=== PATIENT | female | born 1960 | race Caucasian/White ===

== ENCOUNTER 2020-07-30 07:39 | Outpatient (REF) | payer BC, SELFPAY ==
[2020-07-30 08:20] LABS: Basophils Percent Auto 0.2 % (0-2); Eosinophils Absolute Auto 0.2 X10*3/uL (0.0-0.4); Eosinophils Percent Auto 2.6 % (0-4); Imm Gran Abs Auto 0.02 X10*3/uL (0.00-0.03); Imm Gran Pct Auto 0.3 % (0.0-0.4); MANUAL DIFF FLAG SCAN; PLT CLUMP 1; SCAN SMEAR FLAG 1
[2020-07-30 08:21] LABS: Appearance Urine CLEAR; Color Urine YELLOW; Glucose Urine UA NEG (NEG); Leukocyte Esterase Urine 1+ (NEG); Nitrite Urine NEG (NEG); Specific Gravity - Urine 1.025 (1.005-1.025); Urine Blood 2+ (NEG); Urine Ketones NEG (NEG); Urine Protein NEG (NEG-TRACE)
[2020-07-30 08:22] LABS: Hematocrit 34.8 % (37-47); Hemoglobin 11.9 g/dl (12.0-16.0); Lymphocytes Absolute Auto 1.7 X10*3/uL (1.2-4.9); Lymphocytes Percent Auto 25.8 % (20-40); Mean Corpuscular HGB Conc 34.2 g/dl (31.0-35.0); Mean Corpuscular Volume 93.5 fL (80-98); Mean Platelet Volume 9.8 fL (9.4-12.3); Monocytes Absolute Auto 0.4 X10*3/uL (0.1-1.2); Monocytes Percent Auto 6.7 % (2-11); Neutrophils Absolute Auto 4.2 X10*3/uL (2.0-8.3); Neutrophils Percent Auto 64.4 % (45-73); Platelet Count 155 X10*3/uL (160-400); Red Blood Count 3.72 X10*6/uL (4.20-5.50); Red Cell Distribution Width 13.4 % (11.0-16.0); White Blood Count 6.4 X10*3/uL (4.8-10.8)
[2020-07-30 08:31] LABS: Mucus Urine TRACE /LPF; Squamous Epithelial Cell Urine 2+ /LPF
[2020-07-30 08:32] LABS: WBC Urine 0-2 /HPF (0-4)
[2020-07-30 09:34] LABS: Alanine Aminotransferase 21 U/L (0-31); Albumin Level 4.3 g/dL (3.5-5.0); Alkaline Phosphatase 80 U/L (39-117); Anion Gap 11 (12-20); Aspartate Amino Transferase 22 U/L (5-31); Bilirubin Total 0.6 mg/dL (0.0-1.0); Blood Urea Nitrogen 20 mg/dL (9-16); Calcium 8.7 mg/dL (8.4-10.2); Carbon Dioxide 26 mmol/L (22-29); Chloride 108 mmol/L (96-108); Cholesterol 210 mg/dL; Estimated Glomerular Filt Rate > 60; Glucose Random 100 mg/dL (60-115); HDL Cholesterol 68 mg/dL; LDL Cholesterol Calculated 133 mg/dl; Potassium 4.1 mmol/l (3.3-5.1); Sodium 141 mmol/L (135-145); Total Protein 6.9 g/dL (6.5-8.0); Triglycerides 47 mg/dL
[2020-07-30 09:58] LABS: Free T4 (Free Thyroxine) 0.87 ng/dL (0.71-1.85); Thyroid Stimulating Hormone 2.94 uIU/mL (0.32-4.0); Vitamin D 25-OH Total 25.3 ng/mL (>30)
[2020-07-30 10:45] LABS: Folate 19.4 ng/mL (> or = 4.0); Vitamin B12 503 pg/mL (200-900)
== END 2020-07-30 07:40 | disposition home or self-care (01) ==
LOC: HO.LAB 07:39
PROVIDERS: Visit Provider Internal Medicine
DX: E78.00 Pure hypercholesterolemia, unspecified (principal); I73.9 Peripheral vascular disease, unspecified
CPT/HCPCS: 36415; 80053; 80061; 81001; 82306; 82607; 82746; 84439; 84443; 85025

== ENCOUNTER 2020-07-30 11:50 | Outpatient (REF) | payer BC, SELFPAY ==
--- NOTE | 2020-07-30 11:58 | US_ITS ---
EXAMINATION: US VENOUS ULTRASOUND WITH DOPPLER LOWER EXTREMITY, LEFT CLINICAL INFORMATION: Reason for Exam R09.89 - Other specified symptoms and signs involving the ci COMPARISON: Prior right venous ultrasound May 2018 TECHNIQUE: Ultrasound of the deep veins is performed from the hip to the calf with compression sonography and color and pulse Doppler assessment. Spectral analysis with color-flow imaging is performed. FINDINGS: There is normal venous compression and respiratory variation and augmented flow. The visualized common femoral vein, superficial femoral vein, profunda femoral vein, popliteal vein, and the trifurcation region shows no evidence of deep venous thrombosis. There is no significant popliteal fossa cyst. If the patient's symptoms persist, followup ultrasound in 5 days 7 days might be of value to exclude proximal propagation from a non-visualized calf vein. US/US venous duplex LE IMPRESSION: No DVT demonstrated in the left lower extremity.
== END 2020-07-30 11:51 | disposition home or self-care (01) ==
LOC: HO.HMGCX 11:50
PROVIDERS: PCP Internal Medicine; Visit Provider Internal Medicine
DX: R09.89 Other specified symptoms and signs involving the circulatory and respiratory systems (principal)
CPT/HCPCS: 93971

== ENCOUNTER 2021-11-25 10:07 | Outpatient (REF) | payer BC, SELFPAY ==
[2021-11-25 10:24] LABS: MANUAL DIFF FLAG NO
[2021-11-25 10:31] LABS: Basophils Percent Auto 0.3 % (0-2); Eosinophils Absolute Auto 0.1 X10*3/uL (0.0-0.4); Eosinophils Percent Auto 1.5 % (0-4); Hematocrit 34.8 % (37.0-47.0); Hemoglobin 11.7 g/dl (12.0-16.0); Imm Gran Abs Auto 0.02 X10*3/uL (0.00-0.03); Imm Gran Pct Auto 0.3 % (0.0-0.4); Lymphocytes Absolute Auto 1.5 X10*3/uL (1.2-4.9); Lymphocytes Percent Auto 22.4 % (20-40); Mean Corpuscular HGB Conc 33.6 g/dl (31.0-35.0); Mean Corpuscular Volume 92.3 fL (80.0-98.0); Mean Platelet Volume 9.2 fL (9.4-12.3); Monocytes Absolute Auto 0.4 X10*3/uL (0.1-1.2); Monocytes Percent Auto 5.7 % (2-11); Neutrophils Absolute Auto 4.8 x10*3/uL (2.0-8.3); Neutrophils Percent Auto 69.8 % (45-73); Platelet Count 146 X10*3/uL (160-400); Red Blood Count 3.77 X10*6/uL (4.20-5.50); Red Cell Distribution Width 13.7 % (11.0-16.0); Reticulocytes Absolute 0.074 X10*6/uL (0.026-0.095); White Blood Count 6.9 X10*3/uL (4.8-10.8)
[2021-11-25 11:18] LABS: Alanine Aminotransferase 17 U/L (0-31); Albumin Level 4.2 g/dL (3.5-5.0); Alkaline Phosphatase 80 U/L (39-117); Anion Gap 10 (12-20); Aspartate Amino Transferase 25 U/L (5-31); Bilirubin Total 1.4 mg/dL (0.0-1.0); Blood Urea Nitrogen 13 mg/dL (9-16); Calcium 9.3 mg/dL (8.4-10.2); Carbon Dioxide 29 mmol/L (22-29); Chloride 105 mmol/L (96-108); Cholesterol 199 mg/dL; Estimated Glomerular Filt Rate > 60; Glucose Random 98 mg/dL (60-115); HDL Cholesterol 54 mg/dL; Iron 46 mcg/dL (30-160); LDL Cholesterol Calculated 130 mg/dl; Percent Iron Saturation 16 % (15-50); Potassium 4.4 mmol/L (3.3-5.1); Sodium 140 mmol/L (135-145); Total Iron Binding Capacity 290 mcg/dL (228-428); Total Protein 6.9 g/dL (6.5-8.0); Triglycerides 76 mg/dL; Unsaturated Iron Binding 244 ug/dL
[2021-11-25 11:39] LABS: Ferritin 463 ng/mL (10-250); Free T4 (Free Thyroxine) 0.94 ng/dL (0.71-1.85); Thyroid Stimulating Hormone 2.02 uIU/mL (0.32-4.0); Vitamin D 25-OH Total 22.3 ng/mL (>30)
[2021-11-25 11:58] LABS: Folate 17.4 ng/mL (> or = 4.0); Vitamin B12 472 pg/mL (200-900)
[2021-11-25 12:06] LABS: Appearance Urine CLEAR; Color Urine YELLOW; Glucose Urine UA NEG (NEG); Leukocyte Esterase Urine NEG (NEG); Nitrite Urine NEG (NEG); PH 5.5 (5.0-8.0); Urine Blood 1+ (NEG); Urine Ketones NEG (NEG); Urine Protein NEG (NEG-TRACE)
[2021-11-25 12:30] LABS: RBC Urine 0-2 /HPF (0); WBC Urine 0 /HPF (0-4)
[2021-11-25 12:31] LABS: Mucus Urine 1+ /LPF; Squamous Epithelial Cell Urine TRACE /LPF
== END 2021-11-25 10:08 | disposition home or self-care (01) ==
LOC: HO.LAB 10:07
PROVIDERS: PCP Internal Medicine; Visit Provider Internal Medicine
DX: I73.9 Peripheral vascular disease, unspecified (principal); E78.00 Pure hypercholesterolemia, unspecified; D64.9 Anemia, unspecified
CPT/HCPCS: 36415; 80053; 80061; 81001; 82306; 82607; 82728; 82746; 83540; 84439; 84443; 85025; 85045

== ENCOUNTER → 2021-12-14 15:31 | Outpatient (BNV) | payer BC, MEDICARE, SELFPAY | PROVIDERS: PCP Internal Medicine; Visit Provider Internal Medicine | DX: D64.9 Anemia, unspecified (principal); D69.6 Thrombocytopenia, unspecified | CPT/HCPCS: 99203; 99213; 99214 ==

== ENCOUNTER → 2022-01-28 07:23 | Outpatient (REF) | payer BC, SELFPAY ==
--- NOTE | ~2022-01-28 | XR_ITS ---
EXAMINATION: XR CHEST CLINICAL INFORMATION: Shortness of breath COMPARISON: None TECHNIQUE: 2 views of the chest were obtained. FINDINGS: The cardiac and mediastinal contours are normal. The lungs are clear. There is no pleural effusion or pneumothorax. There are degenerative changes of the spine. XR/XR chest 2V IMPRESSION: No evidence for acute disease in the chest.
--- NOTE | ~2022-01-28 | XR_ITS ---
EXAMINATION: XR ABDOMEN KUB CLINICAL INDICATION: Family history of abdominal aortic aneurysm. COMPARISON: None TECHNIQUE: AP view of the abdomen. FINDINGS: The bowel gas pattern is normal with no evidence of ileus or obstruction. No unusual soft tissue calcifications are noted. There is a small left pelvic calcification probably representing a calcified phlebolith. There are mild degenerative changes of the lower lumbar spine and hip joints. XR/XR KUB IMPRESSION: No evidence of abdominal aortic aneurysm by x-ray.
--- NOTE | 2022-01-28 07:30 | ECG_ITS ---
Test Reason : sob Blood Pressure : / mmHG Vent. Rate : 067 BPM Atrial Rate : 067 BPM P-R Int : 142 ms QRS Dur : 080 ms QT Int : 398 ms P-R-T Axes : 036 -18 040 degrees QTc Int : 420 ms Normal sinus rhythm with sinus arrhythmia Normal ECG No previous ECGs available Referred By: Royal Mendoza Electronically Signed By:PARK PATTERSON MD
== END ==
LOC: HO.CARD 07:23
PROVIDERS: PCP Internal Medicine; Visit Provider Internal Medicine
DX: R06.02 Shortness of breath (principal)
CPT/HCPCS: 71046; 74018; 93005

== ENCOUNTER → 2022-01-31 08:53 | Outpatient (REF) | payer BC, SELFPAY ==
--- NOTE | 2022-01-31 09:03 | CA_ITS ---
Acquisition Time: 2022-01-31 09:18:10 Total Exercise Time: 00:08:33 Test Indications: SOB Medications: Protocol: IGNACIO Max HR: 139 BPM 89% of Pred: 156 BPM Max BP: 168/066 mmHG Max Work Load: 10.1 METS Exercise stress test with exercise 8 min 33 sec of Ignacio protocol, achieving 87% MPHR, 10.1 METs, with mild sob, no chest discomfort, without arrythmia, with normotensive response to exercise, without EKG changes meeting criteria for ischemia. Test reviewed with Dr Fields. Referred By: Royal Mendoza Overread By: JEREMIAH PETTY
== END ==
LOC: HO.CARD 08:53
PROVIDERS: PCP Internal Medicine; Visit Provider Internal Medicine
DX: R06.02 Shortness of breath (principal)
CPT/HCPCS: 93017

== ENCOUNTER 2022-02-03 07:34 | Outpatient (REF) | payer BC, SELFPAY ==
--- NOTE | ~2022-02-03 | MM_ITS ---
EXAMINATION: MM SCREENING DIGITAL BREAST TOMOSYNTHESIS, BILATERAL CLINICAL INFORMATION: Screening. Asymptomatic. The lifetime risk of breast cancer based on the Tyrer-Cuzick Model is 9%. COMPARISON: Outside mammography: 02/17/2021, 10/08/2019, 08/30/2018 ([facility]). TECHNIQUE: Digital breast tomosynthesis is performed in both the craniocaudal and mediolateral oblique views along with computer-aided detection (CAD). Synthesized 2D images are generated from the tomosynthesis. FINDINGS: There are scattered areas of fibroglandular density (ACR BI-RADS breast composition Category b). Parenchymal pattern is similar to prior outside exams. Right breast has a stable oval nodule versus intramammary node posterior outer breast. Neither breast shows significant mass or architectural abnormality or abnormal calcifications. There are dermal lesions overlying the bilateral upper breasts and left posterior 6:00 position. The axilla are unremarkable. No significant changes. MM/MM tomosynthesis screening BI IMPRESSION: No mammographic evidence of malignancy. ASSESSMENT: BI-RADS 2: Benign RECOMMENDATION: Routine annual mammography screening. This patient's information was entered into a reminder system with a target due date for their next mammogram.
--- NOTE | ~2022-02-03 | MM_ITS ---
EXAMINATION: BONE DENSITOMETRY CLINICAL INDICATION: Osteoporosis. COMPARISON: Baseline BD dated 09/14/2017. TECHNIQUE: Using a [employer] DXA System (software version: 13.1) manufactured by [employer], dual-energy x-ray absorptiometry was performed of the lumbar spine and left hip. The images are of good technical quality. Summary results are attached. FINDINGS: AP SPINE L1-L4: Current: BMD 0.943 g/cm2, Z-score -1.2, T-score -2.0, osteopenia, 1.5% decrease from baseline (<5% change is not significant). Baseline: BMD 0.957 g/cm2. LEFT FEMUR, NECK: Current: BMD 0.846 g/cm2, Z-score -0.4, T-score -1.4, osteopenia. Baseline: BMD 0.883 g/cm2. LEFT FEMUR, TOTAL: Current: BMD 0.945 g/cm2, Z-score 0.1, T-score -0.5, normal, 0.2% decrease from baseline (<5% change is not significant). Baseline: BMD 0.947 g/cm2. IDENTIFIED RISK FACTORS: Menopause, history of fracture (adult). HISTORY OF FRACTURE: Wrist, finger, lower leg. MEDICATIONS: Calcium or multivitamin. Vitamin D. MM/XR DEXA axial skeleton IMPRESSION: 1. DIAGNOSIS: Osteopenia based on the lowest T-score value of -2.0 in the lumbar spine applying World Health Organization criteria. 2. 10-YEAR FRACTURE RISK PREDICTION, FRAX: Major osteoporotic fracture (clinical spine, forearm, hip or shoulder) 13.7%. Hip fracture 1.3%. 3. Treatment Recommendations: NOF guidelines recommend consideration for treatment in postmenopausal women and men age 50 and older presenting with the following: -A hip or vertebral (clinical or morphometric) fracture. -T-score less than or equal to -2.5 at the femoral neck or spine after appropriate evaluation to exclude secondary causes. -Low bone mass at the hip or spine and a 10-year fracture probability by FRAX of greater than or equal to 3% for hip fracture or greater than or equal to 20% for major osteoporotic fracture based on the [place] adapted WHO algorithm. 4. Other Recommendations: All treatment decisions require clinical judgment and consideration of individual patient factors, including patient preferences, comorbidities, previous drug use, risk factors not captured in the FRAX model (e.g. frailty, falls, vitamin D deficiency, increased bone turnover, interval significant decline in bone density) and possible under or overestimation of fracture risk by FRAX. Additional medical evaluation for secondary cause of low bone mineral density may be appropriate. FUTURE SCAN RECOMMENDATION: People with diagnosed cases of osteoporosis or at high risk for fracture should have regular bone mineral density tests. For patients eligible for Medicare, routine testing is allowed once every 2 years. The testing frequency can be increased to one year for patients who have rapidly progressing disease, those who are receiving or discontinuing medical therapy to restore bone mass, or have additional risk factors.
== END 2022-02-03 07:35 | disposition home or self-care (01) ==
LOC: HO.MAMMO 07:34
PROVIDERS: Visit Provider Internal Medicine
DX: Z12.31 Encounter for screening mammogram for malignant neoplasm of breast (principal); Z13.820 Encounter for screening for osteoporosis; M81.0 Age-related osteoporosis without current pathological fracture; Z78.0 Asymptomatic menopausal state
CPT/HCPCS: 77063; 77067; 77080

== ENCOUNTER 2022-05-03 13:09 | Outpatient (REF) | payer BC, SELFPAY ==
--- NOTE | ~2022-05-03 | US_ITS ---
EXAMINATION: US PELVIS CLINICAL INFORMATION: Pelvic and perineal pain COMPARISON: None TECHNIQUE: Ultrasound of the pelvis is performed using both transabdominal and transvaginal transducers along with Doppler. Transvaginal imaging is performed due to inadequate visualization transabdominally. FINDINGS: Uterus: The uterus is anteverted and measures 5.7 x 2.1 x 3.6 cm. There is a submucosal fibroid present on the right fundus measuring 2.1 x 1.9 x 1.9 cm The double wall endometrial thickness is 2.4 mm. Tiny amount of fluid is present in the endometrial canal Adnexa: The right ovary could not be seen. Left ovary measured 2.6 x 2.1 x 1.7 cm for a volume of 4.9 mL which included a 1.8 x 1.4 x 1.5 cm cyst. No free fluid was present in the cul-de-sac. US/US pelvic ovarian doppler IMPRESSION: Submucosal right-sided fundal fibroid. Small amount of fluid is present in the endometrial canal. Nonvisualization of the right ovary. Benign left ovarian cyst needs no further follow-up.
--- NOTE | ~2022-05-03 | US_ITS ---
EXAMINATION: US PELVIS CLINICAL INFORMATION: Pelvic and perineal pain COMPARISON: None TECHNIQUE: Ultrasound of the pelvis is performed using both transabdominal and transvaginal transducers along with Doppler. Transvaginal imaging is performed due to inadequate visualization transabdominally. FINDINGS: Uterus: The uterus is anteverted and measures 5.7 x 2.1 x 3.6 cm. There is a submucosal fibroid present on the right fundus measuring 2.1 x 1.9 x 1.9 cm The double wall endometrial thickness is 2.4 mm. Tiny amount of fluid is present in the endometrial canal Adnexa: The right ovary could not be seen. Left ovary measured 2.6 x 2.1 x 1.7 cm for a volume of 4.9 mL which included a 1.8 x 1.4 x 1.5 cm cyst. No free fluid was present in the cul-de-sac. US/US pelvic and transvaginal IMPRESSION: Submucosal right-sided fundal fibroid. Small amount of fluid is present in the endometrial canal. Nonvisualization of the right ovary. Benign left ovarian cyst needs no further follow-up.
== END 2022-05-03 13:10 | disposition home or self-care (01) ==
LOC: HO.US 13:09
PROVIDERS: PCP Internal Medicine; Visit Provider Physician Assistant
DX: R10.2 Pelvic and perineal pain (principal)
CPT/HCPCS: 76830; 76856; 93975

== ENCOUNTER 2023-03-11 08:52 | Outpatient (REF) | payer MEDICARE, BC, SELFPAY ==
--- NOTE | ~2023-03-11 | MM_ITS ---
EXAMINATION: MM SCREENING DIGITAL BREAST TOMOSYNTHESIS, BILATERAL CLINICAL INFORMATION: Screening. Asymptomatic. The lifetime risk of breast cancer based on the Tyrer-Cuzick Model is 8%. COMPARISON: Mammography: 12/04/2021; outside mammography 02/17/2021, 10/08/2019, 08/30/2018 ([facility]). TECHNIQUE: Digital breast tomosynthesis is performed in both the craniocaudal and mediolateral oblique views along with computer-aided detection (CAD). Synthesized 2D images are generated from the tomosynthesis. FINDINGS: There are scattered areas of fibroglandular density (ACR BI-RADS breast composition Category b). There are no significant masses, abnormal calcifications, or other abnormalities. Parenchymal pattern is similar to prior studies. There is no developing density or architectural abnormality. There are scattered dermal lesions again noted. Incidental small intramammary nodes again present posterior upper outer right breast. The axilla are unremarkable. No significant changes from prior studies. MM/MM tomosynthesis screening BI IMPRESSION: No mammographic evidence of malignancy. ASSESSMENT: BI-RADS 2: Benign RECOMMENDATION: Routine annual mammography screening. This patient's information was entered into a reminder system with a target due date for their next mammogram.
== END 2023-03-11 08:53 | disposition home or self-care (01) ==
LOC: HO.MAMMO 08:52
PROVIDERS: PCP Internal Medicine; Visit Provider Internal Medicine
DX: Z12.31 Encounter for screening mammogram for malignant neoplasm of breast (principal)
CPT/HCPCS: 77063; 77067

== ENCOUNTER 2023-08-07 10:30 | Outpatient (REF) | payer MEDICARE, BC, SELFPAY ==
[2023-08-07 10:43] LABS: MANUAL DIFF FLAG NO
[2023-08-07 10:58] LABS: Basophils Percent Auto 0.3 % (0-2); Eosinophils Absolute Auto 0.1 X10*3/uL (0.0-0.4); Eosinophils Percent Auto 1.8 % (0-4); Hematocrit 33.7 % (37.0-47.0); Hemoglobin 11.5 g/dl (12.0-16.0); Imm Gran Abs Auto 0.02 X10*3/uL (0.00-0.03); Imm Gran Pct Auto 0.3 % (0.0-0.4); Immature Retic Fraction 11.6 % (3.0-15.9); Lymphocytes Absolute Auto 1.6 X10*3/uL (1.2-4.9); Lymphocytes Percent Auto 20.9 % (20-40); Mean Corpuscular HGB Conc 34.1 g/dl (31.0-35.0); Mean Corpuscular Hemoglobin 31.7 pg (27.0-33.0); Mean Corpuscular Volume 92.8 fL (80.0-98.0); Mean Platelet Volume 9.8 fL (9.4-12.3); Monocytes Absolute Auto 0.5 X10*3/uL (0.1-1.2); Monocytes Percent Auto 7.1 % (2-11); Neutrophils Absolute Auto 5.3 x10*3/uL (2.0-8.3); Neutrophils Percent Auto 69.6 % (45-73); Platelet Count 140 X10*3/uL (160-400); Red Blood Count 3.63 X10*6/uL (4.20-5.50); Red Cell Distribution Width 13.4 % (11.0-16.0); Retic HGB Equivalent 35.8 pg (30.0-35.0); Reticulocyte Percent 2.2 % (0.5-1.8); Reticulocytes Absolute 0.081 X10*6/uL (0.026-0.095); White Blood Count 7.6 X10*3/uL (4.8-10.8)
[2023-08-07 11:06] LABS: Estimated Average Glucose 94 mg/dL; Hemoglobin A1c % 4.9 % (<6.0)
[2023-08-07 11:38] LABS: Alanine Aminotransferase 11 U/L (0-31); Albumin Level 4.1 g/dL (3.5-5.0); Alkaline Phosphatase 73 U/L (39-117); Anion Gap 10 (12-20); Aspartate Amino Transferase 19 U/L (5-31); Blood Urea Nitrogen 15 mg/dL (9-16); Calcium 9.3 mg/dL (8.4-10.2); Carbon Dioxide 28 mmol/L (22-29); Chloride 107 mmol/L (96-108); Cholesterol 190 mg/dL (<200); Estimated Glomerular Filt Rate > 60; Glucose Random 97 mg/dL (60-115); HDL Cholesterol 64 mg/dL (>40); Iron 47 mcg/dL (30-160); LDL Cholesterol Calculated 115 mg/dL (<100); Percent Iron Saturation 21 % (15-50); Potassium 4.1 mmol/L (3.3-5.1); Sodium 141 mmol/L (135-145); Total Iron Binding Capacity 223 mcg/dL (228-428); Total Protein 6.9 g/dL (6.5-8.0); Triglycerides 55 mg/dL (<150); Unsaturated Iron Binding 176 ug/dL
[2023-08-07 11:58] LABS: Ferritin 475 ng/mL (10-250); Free T4 (Free Thyroxine) 0.92 ng/dL (0.71-1.85); Thyroid Stimulating Hormone 1.51 uIU/mL (0.32-4.0); Vitamin D 25-OH Total 27.3 ng/mL (>30)
[2023-08-07 12:01] LABS: Folate 12.2 ng/mL (> or = 4.0); Vitamin B12 410 pg/mL (200-900)
== END 2023-08-07 10:31 | disposition home or self-care (01) ==
LOC: HO.LAB 10:30
PROVIDERS: PCP Internal Medicine; Visit Provider Internal Medicine
DX: D64.9 Anemia, unspecified (principal); E78.00 Pure hypercholesterolemia, unspecified; R73.02 Impaired glucose tolerance (oral); E55.9 Vitamin D deficiency, unspecified
CPT/HCPCS: 36415; 80053; 80061; 82306; 82607; 82728; 82746; 83036; 83540; 84439; 84443; 85025; 85045

== ENCOUNTER 2023-08-07 15:13 | Outpatient (AMB) | payer MEDICARE, BC, SELFPAY ==
[2023-08-07 15:14] VITALS: BP 126/90; PULSE 65; O2SAT 96; BMI 27.9
--- NOTE | 2023-08-07 15:14 | A.OFFPC_ITS ---
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 Allergy (Unknown, Uncoded 08/07/23 15:19) NKDA Tobacco use date assessed: 08/07/23 Fall risk assessment: No Falls in past year Last assessed Fall Risk: 08/07/23 Dental Screening Did you have a dental visit in the last 12 months?: Yes Did you have a dental problem in the last 6 months where you did not have access to dental care?: No Was dental information given to patient?: Patient has dentist [facility] Medical History (Updated 08/07/23 @ 15:41 by Royal Mendoza MD) Cough SOB (shortness of breath) on exertion Obesity (BMI 30-39.9) Right arm fracture Melanoma of lip Osteopenia Tubular adenoma of colon Peripheral vascular disease Surgical History History of hemorrhoidectomy Fracture of phalanx of right ring finger History of surgery on right wrist Ovarian tumor Right fibular fracture Family History (Updated 12/19/22 @ 09:12 by Royal Mendoza MD) Father FH: prostate cancer Skin cancer Colon cancer Atrial fibrillation Mother Social History (Updated 12/19/22 @ 09:13 by Royal Mendoza MD) Household Members: Significant Other Housing: House Are you a primary hospice patient care secretary to a significant other at home: No Do you presently have visiting nurse or other home services: No Alcohol intake: current Alcohol intake frequency: holidays/special occasions only Patient Tobacco Use Status: Never used Tobacco Years Smoked: second hand smoke 14 years old did smoke 3 months e-Cigarette/Vaping Use: Never Used Second Hand Smoke Exposure: No service: No Current occupational status: employed and retired Cognitive needs: No Hearing needs: No Vision needs: Yes (Glasses) Questionnaire Thrive Questionnaire Date Thrive assessed: 12/19/22 AUDIT C Alcohol Use Questionnaire (AUDIT-C) 1. How often do you have a drink containing alcohol?: Monthly or less 2. How many drinks containing alcohol do you have on a typical day when you are drinking?: 1 or 2 3. How often do you have six or more drinks on one occasion?: Never Total Score: 1 JEFFREY-7 AMB Questionnaire JEFFREY-7 Date JEFFREY - 7 assessed: 12/19/22 Source: Developed by Drs. Mitchell Zapata, Tejal Moreno, Agapito Umanzor and colleagues, with an educational ailyn from [employer]. Physical exam (Primary Care) Vital Signs: Last Vital Signs Pulse 65 08/07/23 15:14 BP 126/90 H 08/07/23 15:14 Pulse Ox 96 08/07/23 15:14 Oxygen Delivery Method Room Air 08/07/23 15:14 BMI result Body Mass Index 27.9 Tobacco/Smoking Status: Tobacco use Status Tobacco use date assessed 08/07/23 08/07/23 15:15 Patient Tobacco Use Status Never used Tobacco 08/07/23 15:15 e-Cigarette/Vaping Use Never Used 08/07/23 15:15 Thrive Assessment: Date of Thrive Assessment Date Thrive assessed 12/19/22 08/07/23 15:15 Const General: alert; No acute distress Eyes Conjunctivae: conjunctivae normal Resp Auscultation: clear to auscultation bilaterally Cardio Rate: regular rate Rhythm: regular rhythm GI Inspection: Yes normal to inspection Extrem Other: Right arm feeling of cord in the middle but no discoloration of the skin very mild tenderness complains of numbness of the hands but getting better Office Procedures Flu Questionnaire Does the patient have a severe egg allergy?: No Does the patient have severe life threatening allergies?: No Does the patient have a fever or illness today?: No Has the patient ever had Guillain-[place] Syndrome?: No Has the patient ever had any past reaction to a flu shot?: No Immunizations flu vacc [id number] 6mos up(PF) 60 mcg(15 mcgx4)/0.5 mL IM syringe Performing Provider: Royal Mendoza MD [facility] [place] [facility] Administered by: BELKYS Galeas on 08/07/23 16:10 Dose Route Admin Location Dispensed Lot Number Expiration Date NDC [facility] Nurse Practitioner 0.5 mL IM Left Deltoid 0.5 mL [id number] 03/17/24 20730-288-32 [employer] VIS Given Date VIS Provided VIS Publication Date 08/07/23 Single Vaccine 21 Eligibility Eligibility Date Funding Source Not [facility] Eligible 08/07/23 Private Assessment and Plan Assessment & Plan (1) Anemia: Code(s): D64.9 - Anemia, unspecified Plan: Continuing to monitor normal iron and vitamin B12 (2) Vitamin D deficiency: Code(s): E55.9 - Vitamin D deficiency, unspecified Plan: Vitamin-D 7706-2901 units once a day (3) Obesity (BMI 30-39.9): Code(s): E66.9 - Obesity, unspecified Plan: Diet and exercise (4) Right arm pain: Code(s): M79.601 - Pain in right arm Plan: Us done negative in [facility] negative- R arm cord (5) Numbness of right hand: Code(s): R20.0 - Anesthesia of skin Plan: if persist will have NCV Orders: Orders XR humerus RT Today R20.0 - Anesthesia of skin Influenza [id number] Immunization Today Z23 - Encounter for immunization Coding Level of Care Code Est Pt Level 4 (35967) Diagnoses Anemia D64.9 Vitamin D deficiency E55.9 Obesity (BMI 30-39.9) E66.9 Right arm pain M79.601 Numbness of right hand R20.0
== END 2023-08-07 16:01 | disposition home or self-care (01) ==
PROVIDERS: PCP Internal Medicine; Visit Provider Internal Medicine
DX: D64.9 Anemia, unspecified (principal); E66.9 Obesity, unspecified; Z68.27 Body mass index [BMI] 27.0-27.9, adult; Z23 Encounter for immunization; E55.9 Vitamin D deficiency, unspecified; M79.601 Pain in right arm; R20.0 Anesthesia of skin
CPT/HCPCS: 90471; 90686; 99214

== ENCOUNTER 2023-08-24 13:09 | Outpatient (AMB) | payer MEDICARE, BC, SELFPAY ==
[2023-08-24 13:10] VITALS: BP 124/72; PULSE 62; O2SAT 98; BMI 28.8
--- NOTE | 2023-08-24 13:10 | A.OFFPC_ITS ---
Vital Signs 3 08/24/23 13:10 Height 5 ft 7 in Weight 184 lb BMI 28.8 BP 124/72 Blood Pressure Location Lt brachial Position Sitting Pulse 62 Pulse Source Pulse Oximeter Pulse Oximetry (%) 98 Oxygen Delivery Method Room Air Intake Visit Reasons: Fell off her horse, back/hip pain Intake Note: pt states back and left hip pain due to falling off horse 08/14/23. 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 Allergy (Unknown, Uncoded 08/24/23 13:21) NKDA Medication List - Last Reconciled 08/24/23 by CRISTOPHER Lombardi cholecalciferol (vitamin D3) 25 mcg PO DAILY compress.stocking,knee,reg,med As directed multivitamin 1 tab PO DAILY Tobacco use date assessed: 08/24/23 Last assessed Fall Risk: 08/24/23 HPI Fell off her horse, back/hip pain 2 HPI0 Details Patient is a 63-year-old female who presents today for the same day visit after falling of a horse 08/14/2023. Patient of Dr. Mendoza. Patient reports that she fell on her left hip and landed on a spur. Reports left hip/left low back pain, reports that pain slightly got worse yesterday. Reports that she feels pain deep. Pain is worse with stairs or activity. Pain better with sitting down. Took advil with improvement in pain. No numbness or tingling. Reports left hip lateral pain. Pain when sitting down 1/10 scale, pain with walking 4/10 scale. No shortness of breath or chest pain. Reports left hip bruise. [facility], [facility] Medical History Cough SOB (shortness of breath) on exertion Obesity (BMI 30-39.9) Right arm fracture Melanoma of lip Osteopenia Tubular adenoma of colon Peripheral vascular disease Surgical History History of hemorrhoidectomy Fracture of phalanx of right ring finger History of surgery on right wrist Ovarian tumor Right fibular fracture Family History Father FH: prostate cancer Skin cancer Colon cancer Atrial fibrillation Mother Social History Household Members: Significant Other Housing: House Are you a primary prompt care rn to a significant other at home: No Do you presently have visiting nurse or other home services: No Alcohol intake: current Alcohol intake frequency: holidays/special occasions only Patient Tobacco Use Status: Never used Tobacco Years Smoked: second hand smoke 14 years old did smoke 3 months e-Cigarette/Vaping Use: Never Used Second Hand Smoke Exposure: No service: No Current occupational status: employed and retired Cognitive needs: No Hearing needs: No Vision needs: Yes (Glasses) Questionnaire Thrive Questionnaire Date Thrive assessed: 12/19/22 AUDIT C Alcohol Use Questionnaire (AUDIT-C) 1. How often do you have a drink containing alcohol?: Monthly or less 2. How many drinks containing alcohol do you have on a typical day when you are drinking?: 1 or 2 3. How often do you have six or more drinks on one occasion?: Never Total Score: 1 Score Reviewed/Action Taken: No JEFFREY-7 AMB Questionnaire JEFFREY-7 Date JEFFREY - 7 assessed: 12/19/22 Source: Developed by Drs. Mitchell Zapata, Tejal Moreno, Agapito Umanzor and colleagues, with an educational ailyn from [employer]. Review of Systems Const Denies body aches, Denies chills, Denies fever(s) and Denies headache(s) Eyes Denies change in vision ENT Denies dizziness, Denies otalgia, Denies headache(s), Denies nasal discharge, Denies sinus pain and Denies sore throat Card Denies chest pain, Denies edema, Denies lightheadedness and Denies dyspnea Resp Denies cough, Denies dyspnea and Denies wheezing GI Denies abdominal pain, Denies constipation, Denies diarrhea, Denies nausea and Denies vomiting Denies dysuria Musc Reports as per HPI, Reports back pain, Denies myalgias, Reports arthralgias, Denies joint swelling, Denies numbness and Denies tingling Skin/Breast Reports as per HPI and Denies rash Neuro Denies dizziness, Denies headache(s), Denies numbness and Denies tingling Aller/Immun Denies wheezing Physical exam (Primary Care) Vital Signs: Last Vital Signs Pulse 62 08/24/23 13:10 BP 124/72 08/24/23 13:10 Pulse Ox 98 08/24/23 13:10 Oxygen Delivery Method Room Air 08/24/23 13:10 BMI result Body Mass Index 28.8 Tobacco/Smoking Status: Tobacco use Status Tobacco use date assessed 08/24/23 08/24/23 13:15 Patient Tobacco Use Status Never used Tobacco 08/24/23 13:15 e-Cigarette/Vaping Use Never Used 08/24/23 13:15 Thrive Assessment: Date of Thrive Assessment Date Thrive assessed 12/19/22 08/24/23 13:15 Const General: cooperative and no acute distress Orientation/consciousness: patient oriented x3 HENMT Head: Yes normocephalic and Yes atraumatic Face and sinus: Yes sinuses nontender Mouth: oropharynx normal and moist mucous membranes Throat: Yes posterior oropharynx normal Eyes General: appearance normal, both eyes and all related structures Pupils: Equal, round and reactive pupils present Neck Neck: Yes normal visual inspection, Yes full ROM and Yes no lymphadenopathy Resp Effort & Inspection: normal respiratory effort and able to speak in complete sentences Auscultation: clear to auscultation bilaterally, no crackles, no rales, no rhonchi and no wheezes Cardio Rate: regular rate Rhythm: regular rhythm Heart sounds: S1 normal heart sound present, S2 normal heart sound present and no murmurs GI Auscultation: normal bowel sounds General: No CVA tenderness Back/Spine/Pelvis Back: No CVA tenderness Thoracic/Lumbar Spine: paraspinal muscle tenderness (Left thoracic aspect), No thoracic spinal tenderness and No lumbar spinal tenderness Pelvis: buttock tenderness (Left) Sacrum: no ecchymosis and tenderness Back/spine/pelvis image: 2 1. Tender to palpation, skin is intact Skin Other: Left lateral hip ecchymosis, fading General skin exam: no rashes or lesions noted Neuro General: patient oriented x3 Cranial nerves: Yes Equal, round and reactive pupils present Gait exam (Neuro): Normal gait present Extrem Other: Left lateral hip tender to palpation, full range of motion General: Yes full ROM and No edema Assessment and Plan Assessment & Plan (1) Pain in sacrum: Code(s): M53.3 - Sacrococcygeal disorders, not elsewhere classified Plan: Status post falling off horse X-rays ordered to rule out any acute fractures Patient is to continue [id number] Advil p.r.n. Will provide with tizanidine every 8 hours p.r.n.-educated about drowsiness Encouraged heat/cold packs p.r.n. Patient would like to hold off on PT referral until x-ray results (2) Left hip pain: Code(s): M25.552 - Pain in left hip Plan: Same as above Orders: Orders 2 XR sacrum coccyx min 2V 08/24/23 M53.3 - Sacrococcygeal disorders, not elsewhere classified XR hip LT w PEL1V 08/24/23 M25.552 - Pain in left hip XR sacroiliac joint 1-2V 08/24/23 M53.3 - Sacrococcygeal disorders, not elsewhere classified Medications: New 2 tizanidine 2 mg PO Q8H PRN 10 tabs 0RF muscle spasticity M25.552 - Pain in left hip, M53.3 - Sacrococcygeal disorders, not elsewhere classified Coding Level of Care Code Est Pt Level 3 (65305) Diagnoses Pain in sacrum M53.3 Left hip pain M25.552
== END 2023-08-24 13:39 | disposition home or self-care (01) ==
PROVIDERS: PCP Internal Medicine; Visit Provider Nurse Practitioner Family
DX: M53.3 Sacrococcygeal disorders, not elsewhere classified (principal); M25.552 Pain in left hip; V80.010A Animal-rider injured by fall from or being thrown from horse in noncollision accident, initial encounter
CPT/HCPCS: 99213

== ENCOUNTER 2023-08-24 13:45 | Outpatient (REF) | payer MEDICARE, BC, SELFPAY ==
--- NOTE | ~2023-08-24 | XR_ITS ---
EXAMINATION: XR SACROILIAC JOINTS XR SACRUM/COCCYX XR LEFT HIP AND AP PELVIS CLINICAL INDICATION: Sacrococcygeal disorders not otherwise specified. Pain in left hip. COMPARISON: [facility] of 01/28/2022. TECHNIQUE: 4 views of the bilateral sacroiliac joints. 3 views of the sacrum/coccyx. 2 AP views of the pelvis as well as AP and lateral views of the left hip. FINDINGS: AP PELVIS AND LEFT HIP: Moderate degenerative changes in the left hip with joint space narrowing and lateral acetabular hypertrophic change. Left hip alignment preserved. Moderate degenerative changes on AP views of the right hip. Degenerative changes in the partially imaged lower lumbar spine. Small pelvic calcifications are likely vascular. Bones are diffusely demineralized. SACROILIAC JOINTS: Moderate degenerative changes with hypertrophic change in the bilateral sacroiliac joints. SACRUM/COCCYX: Facet arthritis in the partially imaged lower lumbar spine. No displaced fracture of the sacrum is appreciated, although visualization limited due to overlying bone and soft tissue structures. XR/XR sacroiliac joint 1-2V IMPRESSION: 1. Moderate degenerative changes left hip. 2. Moderate degenerative changes in the bilateral sacroiliac joints. 3. Degenerative changes with facet arthritis in the partially imaged lower lumbar spine could be evaluated with dedicated views of the lumbar spine. 4. No displaced fracture appreciated. Correlation with clinical exam recommended to determine further management. If there is concern for fracture or other underlying pathology, MRI could be obtained for further evaluation.
--- NOTE | ~2023-08-24 | XR_ITS ---
EXAMINATION: XR SACROILIAC JOINTS XR SACRUM/COCCYX XR LEFT HIP AND AP PELVIS CLINICAL INDICATION: Sacrococcygeal disorders not otherwise specified. Pain in left hip. COMPARISON: [facility] of 01/28/2022. TECHNIQUE: 4 views of the bilateral sacroiliac joints. 3 views of the sacrum/coccyx. 2 AP views of the pelvis as well as AP and lateral views of the left hip. FINDINGS: AP PELVIS AND LEFT HIP: Moderate degenerative changes in the left hip with joint space narrowing and lateral acetabular hypertrophic change. Left hip alignment preserved. Moderate degenerative changes on AP views of the right hip. Degenerative changes in the partially imaged lower lumbar spine. Small pelvic calcifications are likely vascular. Bones are diffusely demineralized. SACROILIAC JOINTS: Moderate degenerative changes with hypertrophic change in the bilateral sacroiliac joints. SACRUM/COCCYX: Facet arthritis in the partially imaged lower lumbar spine. No displaced fracture of the sacrum is appreciated, although visualization limited due to overlying bone and soft tissue structures. XR/XR hip LT w PEL1V IMPRESSION: 1. Moderate degenerative changes left hip. 2. Moderate degenerative changes in the bilateral sacroiliac joints. 3. Degenerative changes with facet arthritis in the partially imaged lower lumbar spine could be evaluated with dedicated views of the lumbar spine. 4. No displaced fracture appreciated. Correlation with clinical exam recommended to determine further management. If there is concern for fracture or other underlying pathology, MRI could be obtained for further evaluation.
--- NOTE | ~2023-08-24 | XR_ITS ---
EXAMINATION: XR SACROILIAC JOINTS XR SACRUM/COCCYX XR LEFT HIP AND AP PELVIS CLINICAL INDICATION: Sacrococcygeal disorders not otherwise specified. Pain in left hip. COMPARISON: [facility] of 01/28/2022. TECHNIQUE: 4 views of the bilateral sacroiliac joints. 3 views of the sacrum/coccyx. 2 AP views of the pelvis as well as AP and lateral views of the left hip. FINDINGS: AP PELVIS AND LEFT HIP: Moderate degenerative changes in the left hip with joint space narrowing and lateral acetabular hypertrophic change. Left hip alignment preserved. Moderate degenerative changes on AP views of the right hip. Degenerative changes in the partially imaged lower lumbar spine. Small pelvic calcifications are likely vascular. Bones are diffusely demineralized. SACROILIAC JOINTS: Moderate degenerative changes with hypertrophic change in the bilateral sacroiliac joints. SACRUM/COCCYX: Facet arthritis in the partially imaged lower lumbar spine. No displaced fracture of the sacrum is appreciated, although visualization limited due to overlying bone and soft tissue structures. XR/XR sacrum coccyx min 2V IMPRESSION: 1. Moderate degenerative changes left hip. 2. Moderate degenerative changes in the bilateral sacroiliac joints. 3. Degenerative changes with facet arthritis in the partially imaged lower lumbar spine could be evaluated with dedicated views of the lumbar spine. 4. No displaced fracture appreciated. Correlation with clinical exam recommended to determine further management. If there is concern for fracture or other underlying pathology, MRI could be obtained for further evaluation.
== END 2023-08-24 13:46 | disposition home or self-care (01) ==
LOC: HO.XRAY 13:45
PROVIDERS: PCP Internal Medicine; Visit Provider Nurse Practitioner Family
DX: M25.552 Pain in left hip (principal); M53.3 Sacrococcygeal disorders, not elsewhere classified
CPT/HCPCS: 72200; 72220; 73502

== ENCOUNTER 2023-10-03 08:41 | Outpatient (REF) | payer MEDICARE, BC, SELFPAY ==
--- NOTE | ~2023-10-03 | MR_ITS ---
EXAMINATION: MR PELVIS WITHOUT CONTRAST CLINICAL INFORMATION: Fell off horse, complains of left-sided sacral pain for 6 weeks COMPARISON: X-rays of sacrum and coccyx on 08/24/2023 TECHNIQUE: Examination was performed in a high field strength MRI scanner. Noncontrast multiplanar multisequence MR imaging of the pelvis, sacrum and coccyx was performed without IV contrast enhancement. FINDINGS: Extensive T2 hyperintensity is seen in the left sacral ala and sacral body down to inferior border of S3 on the left side, extending from S2 to S3 on the right side. The pelvis and bilateral hips are intact. Bilateral femoral heads and necks show normal signal without focal lesion. No abnormal joint effusion can be seen. The visualized bony pelvis show normal signal. Bilateral sacroiliac joints also appear unremarkable. Uterus is anteverted, containing a T2 hypointense mass lesion in the fundus measuring 1.5 x 1.3 cm in size. A left ovarian cyst is seen measuring 1.8 cm in horizontal diameter, 2.0 cm in vertical height. Urinary bladder is well filled with urine. Multiple diverticula are seen in the sigmoid colon without inflammatory changes. A tiny umbilical hernia containing mesenteric fat is present. Pelvic fat plane is clean. No pelvic ascites is seen. No abnormally enlarged iliac or inguinal lymph nodes are found. MR/MR pelvis wo con IMPRESSION: 1. Extensive edema is seen in the left sacral ala and sacral body or the way down to S3, from S2 to S3 on the right side, consistent with bilateral sacral insufficiency fracture. 2. Incidental note is made of a uterine fibroid. Left ovarian cyst. Findings are overwhelmingly likely to represent a benign functional cyst and no followup imaging recommended. 3. Sigmoid diverticulosis without inflammation.
== END 2023-10-03 08:42 | disposition home or self-care (01) ==
LOC: HO.MRI 08:41
PROVIDERS: PCP Internal Medicine; Visit Provider Nurse Practitioner Family
DX: M53.3 Sacrococcygeal disorders, not elsewhere classified (principal)
CPT/HCPCS: 72195

== ENCOUNTER 2023-10-11 09:44 | Outpatient (AMB) | payer MEDICARE, BC, SELFPAY ==
--- NOTE | 2023-10-11 09:59 | MHC.OFFVIS ---
Intake Vital Signs 10/11/23 10:01 Height 5 ft 7 in Weight 184 lb BMI 28.8 Intake Visit Reasons: fc- fracture of sacrum Intake Note: Fatmata 63 yr old female presents today for a new patient for an evaluation for her sacrum. king States she fell off her horse on july. States she was seen with her PCP who ordered an MRI. States she was told she has fracture. Currently states she feels discomfort and pain level is a 1/10. States she would like to know more about her fracture as far as restrictions. She would like to get back on her horse but is not sure when its appropriate to do so. Patient referred by her PCP. Allergies N.K.D.A. Allergy (Unknown, Uncoded 10/11/23 10:08) NKDA Medication List - Last Reconciled 10/11/23 by Ilsa Carbone MD cholecalciferol (vitamin D3) 25 mcg PO DAILY compress.stocking,knee,reg,med As directed multivitamin 1 tab PO DAILY tizanidine 4 mg PO Q8H PRN HPI HPI Comments History of Present Illness Details Already 8 weeks since fall. Denies pain but constant dull ache, 1/10, on left lower back, SI region. Gait and leg ROM is now much improved, without any pain. Non radicular. But has noticed, pain from left inner knee, radiating up to groin. No bladder/bowel changes. No numbness. 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 She worked through pain, limping for at least 6 weeks. Once fracture was diagnosed, she was put out of work and given restrictions. Symptoms/pain are much better now. FORMERLY [facility], [facility] Medical History Cough SOB (shortness of breath) on exertion Obesity (BMI 30-39.9) Right arm fracture Melanoma of lip Osteopenia Tubular adenoma of colon Peripheral vascular disease Surgical History History of hemorrhoidectomy Fracture of phalanx of right ring finger History of surgery on right wrist Ovarian tumor Right fibular fracture Family History Father FH: prostate cancer Skin cancer Colon cancer Atrial fibrillation Mother Social History (Updated 10/11/23 @ 10:09 by ERICK Russo) Household Members: Significant Other Housing: House Are you a primary healthcare analyst to a significant other at home: No Do you presently have visiting nurse or other home services: No Alcohol intake: current Alcohol intake frequency: holidays/special occasions only Patient Tobacco Use Status: Never used Tobacco Years Smoked: second hand smoke 14 years old did smoke 3 months e-Cigarette/Vaping Use: Never Used Second Hand Smoke Exposure: No service: No Current occupational status: employed and retired 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 Patient was appropriately conversant and oriented. Good historian. MSK: No specific abnormalities found on inspection of the spine and all extremities. No pain with palpation over the lumbar area. No tenderness over spinous processes. Tender on left SI joint area. Tender in left gluteal area. Lumbar ROM was full. Bilateral hip, knee and ankle ROM WNL. No ligamentous laxity or crepitance. No increased effusion. Straight-leg raising test negative. FABERE test negative. No tenderness over inguinal tendons or quadriceps. Strength is 5/5 in all muscle groups tested. No increased tone noted. Neurological: Neurologic examination of the upper and lower extremities was nonfocal with intact sensation, muscle stretch reflexes and without focal motor deficits . Rodriguez?s negative bilaterally. Babinski was down going bilaterally. Clonus was negative. Gait is non-antalgic without loss of balance. She demonstrated she can stand on 1 leg at a time as she was telling me her history. Results Reviewed Results Reviewed: We looked at MRI and x-ray images together. MR PELVIS WITHOUT CONTRAST CLINICAL INFORMATION: Fell off horse, complains of left-sided sacral pain for 6 weeks COMPARISON: X-rays of sacrum and coccyx on 08/24/2023 TECHNIQUE: Examination was performed in a high field strength MRI scanner. Noncontrast multiplanar multisequence MR imaging of the pelvis, sacrum and coccyx was performed without IV contrast enhancement. FINDINGS: Extensive T2 hyperintensity is seen in the left sacral ala and sacral body down to inferior border of S3 on the left side, extending from S2 to S3 on the right side. The pelvis and bilateral hips are intact. Bilateral femoral heads and necks show normal signal without focal lesion. No abnormal joint effusion can be seen. The visualized bony pelvis show normal signal. Bilateral sacroiliac joints also appear unremarkable. Uterus is anteverted, containing a T2 hypointense mass lesion in the fundus measuring 1.5 x 1.3 cm in size. A left ovarian cyst is seen measuring 1.8 cm in horizontal diameter, 2.0 cm in vertical height. Urinary bladder is well filled with urine. Multiple diverticula are seen in the sigmoid colon without inflammatory changes. A tiny umbilical hernia containing mesenteric fat is present. Pelvic fat plane is clean. No pelvic ascites is seen. No abnormally enlarged iliac or inguinal lymph nodes are found. MR/MR pelvis wo con IMPRESSION: 1. Extensive edema is seen in the left sacral ala and sacral body or the way down to S3, from S2 to S3 on the right side, consistent with bilateral sacral insufficiency fracture. 2. Incidental note is made of a uterine fibroid. Left ovarian cyst. Findings are overwhelmingly likely to represent a benign functional cyst and no followup imaging recommended. 3. Sigmoid diverticulosis without inflammation. I reviewed records from the following: PCP Assessment & Plan Assessment & Plan (1) Sacral fracture, closed: Code(s): S32.10XA - Unspecified fracture of sacrum, initial encounter for closed fracture Qualifiers: Encounter type: initial encounter Zone of sacrum fracture: unspecified portion of sacrum Qualified Code(s): S32.10XA - Unspecified fracture of sacrum, initial encounter for closed fracture (2) Strain of left inguinal muscle: Code(s): S39.013A - Strain of muscle, fascia and tendon of pelvis, initial encounter Qualifiers: Encounter type: initial encounter Qualified Code(s): S39.013A - Strain of muscle, fascia and tendon of pelvis, initial encounter Plan Bilateral sacral insufficiency fracture seen on MRI. 8 weeks since fall, currently 1/10 dull ache, more left side. Left groin pull. Can start PT guided exercises within pain free limits. PT to on inguinal and gluteus muscles as well. Per ortho, fracture is non surgical. Strictly speaking, patient should practice bed rest, no heavy activities/lifting, no riding her horse, until completely pain free. We discussed using her own judgement with this. Any activity that cause even mild discomfort, she should stop and rest. Try the exercises that she would learn in PT at home. If she can do those at home without pain, then she can gradually add more. If she is completely pain free with added activities for 2 weeks, then she can try riding the horse. Assessment and plan discussed with patient, and patient was agreeable. All questions were answered thoroughly. Ilsa Carbone MD, INES Board Certified, [place] [employer] and [employer] (ABPMR) Board Certified, [place] [employer] (ABEM) Orders: Orders PT Evaluation and Treatment Today S32.10XA - Unspecified fracture of sacrum, initial encounter for closed fracture, S39.013A - Strain of muscle, fascia and tendon of pelvis, initial encounter Coding Level of Care Code New Pt Level 4 (37098) Diagnoses Closed fracture of sacrum, unspecified portion of sacrum, initial encounter S32.10XA Encounter type: initial encounter Zone of sacrum fracture: unspecified portion of sacrum Strain of left inguinal muscle, initial encounter S39.013A Encounter type: initial encounter
[2023-10-11 10:01] VITALS: BMI 28.8
== END 2023-10-11 10:30 | disposition home or self-care (01) ==
PROVIDERS: PCP Internal Medicine; Visit Provider Physical Medicine & Rehabilitation
DX: S32.10XA Unspecified fracture of sacrum, initial encounter for closed fracture (principal); S39.013A Strain of muscle, fascia and tendon of pelvis, initial encounter
CPT/HCPCS: 99204

== ENCOUNTER → 2023-10-11 09:44 | Outpatient (BNVA) | payer MEDICARE, BC, SELFPAY | PROVIDERS: PCP Internal Medicine; Visit Provider Physical Medicine & Rehabilitation | DX: S32.10XA Unspecified fracture of sacrum, initial encounter for closed fracture (principal); S39.013A Strain of muscle, fascia and tendon of pelvis, initial encounter | CPT/HCPCS: 99202 ==

== ENCOUNTER 2023-12-13 10:08 | Outpatient (AMB) | payer MEDICARE, BC, SELFPAY ==
--- NOTE | 2023-12-13 10:10 | MHC.OFFVIS ---
Intake Vital Signs 12/13/23 10:12 Height 5 ft 7 in Weight 184 lb BMI 28.8 Intake Visit Reasons: OV-fracture of sacrum-follow up Intake Note: Fatmata is a 63 year old female who presents today for a follow up of her sacrum. Fell off her horse on July. At her last visit she was instructed to practice bed rest, no heavy activities/lifting, no riding her horse, until completely pain free. Patient reports that she had a friend who works in an orthopedic practice look at her MRI who found that she also has a hairline fracture in the pelvis. She is unsure if this finding is limiting her ability to recover quicker or if it affects her recovery timeline. She has continues to work with physical therapy which is going well. She does not feel her pain any longer. Allergies N.K.D.A. Allergy (Unknown, Uncoded 10/11/23 10:08) NKDA HPI HPI Comments History of Present Illness Details Bilateral sacral insufficiency fracture seen on MRI 10/03/23. I saw her for the first time 8 weeks after fall. Denied pain but constant dull ache, 09/27, on left lower back, SI region. Gait and leg ROM was by that time much improved, without any pain. Non radicular. But had noticed, pain from left inner knee, radiating up to groin. No bladder/bowel changes. No numbness. 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 She worked through pain, limping for at least 6 weeks. Once fracture was diagnosed, she was put out of work and given restrictions. Per ortho, fracture is non surgical. Restrictions given for careful increasing activity. Has not ridden horse since I saw her. Had difficulty with lateral movement on left leg so stopped handling horses for a while. But since 3 weeks ago, started handling horses again and cleaning stalls. Pushing heavy wheelbarrows up a ramp. When she tried to doing that 6 hours straight, she had severe pain. PT has helped a lot, last day on Monday. No pain or dull ache while at rest or not doing any physical activity. She can get soreness or ache after exercise or PT. Or pain or ache with the heavy pushing or up the ramp. No numbness. No weakness. No bladder/bowel changes. [facility] Medical History Cough SOB (shortness of breath) on exertion Obesity (BMI 30-39.9) Right arm fracture Melanoma of lip Osteopenia Tubular adenoma of colon Peripheral vascular disease Surgical History History of hemorrhoidectomy Fracture of phalanx of right ring finger History of surgery on right wrist Ovarian tumor Right fibular fracture Family History Father FH: prostate cancer Skin cancer Colon cancer Atrial fibrillation Mother Social History (Updated 10/11/23 @ 10:09 by ERICK Russo) Household Members: Significant Other Housing: House Are you a primary hospice patient care secretary to a significant other at home: No Do you presently have visiting nurse or other home services: No Alcohol intake: current Alcohol intake frequency: holidays/special occasions only Patient Tobacco Use Status: Never used Tobacco Years Smoked: second hand smoke 14 years old did smoke 3 months e-Cigarette/Vaping Use: Never Used Second Hand Smoke Exposure: No service: No Current occupational status: employed and retired 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 Patient was appropriately conversant and oriented. Good historian. MSK: No specific abnormalities found on inspection of the spine and all extremities. No pain with palpation over the lumbar area. No tenderness over spinous processes. No SI joint, GT or ischial tuberosity tenderness. Lumbar ROM was full. Bilateral hip, knee and ankle ROM WNL. No ligamentous laxity or crepitance. No increased effusion. Straight-leg raising test negative. FABERE test negative. Strength is 5/5 in all muscle groups tested. No increased tone noted. Neurological: Neurologic examination of the upper and lower extremities was nonfocal with intact sensation, muscle stretch reflexes and without focal motor deficits . Rodriguez?s negative bilaterally. Gait is non-antalgic without loss of balance. Results Reviewed Results Reviewed: MR PELVIS WITHOUT CONTRAST 10/03/23 CLINICAL INFORMATION: Fell off horse, complains of left-sided sacral pain for 6 weeks COMPARISON: X-rays of sacrum and coccyx on 08/24/2023 TECHNIQUE: Examination was performed in a high field strength MRI scanner. Noncontrast multiplanar multisequence MR imaging of the pelvis, sacrum and coccyx was performed without IV contrast enhancement. FINDINGS: Extensive T2 hyperintensity is seen in the left sacral ala and sacral body down to inferior border of S3 on the left side, extending from S2 to S3 on the right side. The pelvis and bilateral hips are intact. Bilateral femoral heads and necks show normal signal without focal lesion. No abnormal joint effusion can be seen. The visualized bony pelvis show normal signal. Bilateral sacroiliac joints also appear unremarkable. Uterus is anteverted, containing a T2 hypointense mass lesion in the fundus measuring 1.5 x 1.3 cm in size. A left ovarian cyst is seen measuring 1.8 cm in horizontal diameter, 2.0 cm in vertical height. Urinary bladder is well filled with urine. Multiple diverticula are seen in the sigmoid colon without inflammatory changes. A tiny umbilical hernia containing mesenteric fat is present. Pelvic fat plane is clean. No pelvic ascites is seen. No abnormally enlarged iliac or inguinal lymph nodes are found. MR/MR pelvis wo con IMPRESSION: 1. Extensive edema is seen in the left sacral ala and sacral body or the way down to S3, from S2 to S3 on the right side, consistent with bilateral sacral insufficiency fracture. 2. Incidental note is made of a uterine fibroid. Left ovarian cyst. Findings are overwhelmingly likely to represent a benign functional cyst and no followup imaging recommended. 3. Sigmoid diverticulosis without inflammation. I reviewed records from the following: PCP Assessment & Plan Assessment & Plan (1) Sacral fracture, closed: Code(s): S32.10XA - Unspecified fracture of sacrum, initial encounter for closed fracture Qualifiers: Encounter type: initial encounter Zone of sacrum fracture: unspecified portion of sacrum Qualified Code(s): S32.10XA - Unspecified fracture of sacrum, initial encounter for closed fracture (2) Strain of left inguinal muscle: Code(s): S39.013A - Strain of muscle, fascia and tendon of pelvis, initial encounter Qualifiers: Encounter type: initial encounter Qualified Code(s): S39.013A - Strain of muscle, fascia and tendon of pelvis, initial encounter Plan Bilateral sacral insufficiency fracture seen on MRI. Per ortho, fracture is non surgical. She has done well in PT and feels comfortable continuing her exercises at home. She has no pain or ache except when she pushes herself at work in the barn. Discussed continued restricting heavy lifting or number of hours working on the barn. No riding her horse yet. It is reasonable to obtain CT pelvis to assess for fracture healing, and that will help us guide her return to activity. Assessment and plan discussed with patient, and patient was agreeable. All questions were answered thoroughly. Ilsa Carbone MD, INES Board Certified, [place] Board of [employer] and Rehabilitation (ABPMR) Board Certified, [place] Board of Electrodiagnostic Medicine (ABEM) Orders: Orders CT bony pelvis Today M84.48XA - Pathological fracture, other site, initial encounter for fracture Coding Level of Care Code Est Pt Level 4 (96953) Diagnoses Closed fracture of sacrum, unspecified portion of sacrum, initial encounter S32.10XA Encounter type: initial encounter Zone of sacrum fracture: unspecified portion of sacrum Strain of left inguinal muscle, initial encounter S39.013A Encounter type: initial encounter
[2023-12-13 10:12] VITALS: BMI 28.8
== END 2023-12-13 10:46 | disposition home or self-care (01) ==
PROVIDERS: PCP Internal Medicine; Visit Provider Physical Medicine & Rehabilitation
DX: S32.10XA Unspecified fracture of sacrum, initial encounter for closed fracture (principal); S39.013A Strain of muscle, fascia and tendon of pelvis, initial encounter
CPT/HCPCS: 99214

== ENCOUNTER → 2023-12-13 10:08 | Outpatient (BNVA) | payer MEDICARE, BC, SELFPAY | PROVIDERS: PCP Internal Medicine; Visit Provider Physical Medicine & Rehabilitation | DX: S32.10XD Unspecified fracture of sacrum, subsequent encounter for fracture with routine healing (principal); S39.013D Strain of muscle, fascia and tendon of pelvis, subsequent encounter; V80.010D Animal-rider injured by fall from or being thrown from horse in noncollision accident, subsequent encounter | CPT/HCPCS: 99212 ==

== ENCOUNTER 2023-12-15 10:00 | Outpatient (RCR) | payer MEDICARE, BC, SELFPAY ==
--- NOTE | 2023-10-16 11:28 | MHC.PT.EP ---
[facility] [place] Office [place] Office [place] Office [address] Lindsay Regan [address] [phone] F: [phone] F: [phone] F: [phone] F: [phone] Physical Therapy Plan of Care Date of Evaluation: 10/16/23 Date of Surgery: Diagnosis: This is a 63 yo female presenting to skilled PT with a script for sacrum fx, pelvis strain. Assessment: This is a 63 yo female presenting to skilled PT with a script for sacrum fx, pelvis strain. Her original injury occurred on 08/14/23 when she fell off her horse (fell off onto her L side more, landed with L LE under her). She went to the MD a week later. She proceeded to have 3 x-rays which were inconclusive until her PCP ordered an MRI and she was told she had fracture in her sacrum. Recent MRI was just performed on 10/03/23, bilateral sacral insufficiency fracture seen. She as referred here via physiatry and note states per ortho, fracture is non surgical. Currently states she feels discomfort and pain level is a 1/10. Pain is described as a constant dull ache and this is located on left lower back, SI as well as some radiating symptoms from L groin, inner thigh to about the knee (this started about 2 weeks). In general her symptoms/pain are improving since her fall. Her goals include returning to riding when medically cleared. Pain increases with being on her feet for 5 hrs at work, walking, pushing and pulling. Assessment reveals pain that ranges from up to a 1/10 at the worst. Patient demos decreased LLE ROM, strength of LLE and gluts, TTP at L QL, piriformis, L PSPS and impaired posture with forward head and rounded shoulders as well as decreased gait pattern from compensatory movements, pain and apprehension. Based on functional limitations, impaired QOL and pain tolerance patient is a good candidate for skilled PT 2x/wk for 4wks. Frequency and Duration: The patient will be seen 2x/wk for 4wks Short Term Goals: Pt will demonstrate improved postural awareness and understanding of core engagement with supine and standing tasks without cues throughout session to improve overall back safety in 2 weeks. Pt will demonstrate centralization of sx in 2 weeks. Pt will continue to reinforce precautions, sitting, standing and ADL modifications with proper body mechanics in 2 wks. Longterm Goals: Pt will demonstrate improved outcome measure by 5 points in 4 weeks for improved functional mobility. Pt will demonstrate ability to bend and lift WNL min to no pain for household tasks in 4 wks. Pt will be I in HEP and compliant in 4wks Pt will return to work and riding when medially cleared by MD Treatment Plan: Modalities to reduce pain, spasms and effusion. Manual therapy to restore motion and function. Therapeutic exercise to improve strength and flexibility. Neuromuscular re-education for posture and balance. Therapeutic activities to return to functional activities of daily living. Electronically signed by: Elva Hernandez PT Please sign and return to therapist. Thank you for your referral.
--- NOTE | 2024-01-15 10:19 | MHC.PT.DC ---
[facility] [place] Office [place] Office [place] Office [address] [phone] F: [phone] F: [phone] F: [phone] F: [phone] Physical Therapy Discharge Report Diagnosis: This is a 63 yo female presenting to skilled PT with a script for sacrum fx, pelvis strain. Date of Surgery: Date of Evaluation: 10/16/23 Date of Discharge: 01/15/24 Treatments to Date: 9 Cancellations to Date: 0 No Shows to Date: 0 Discharge Status: Achieved Goals Improved Function Independent with HEP Patient Elected to Stop Discharge Summary: 12/15/23: Patient is appropriate for DC, updated HEP for home, new bands and educated on safety and precautions still. Demos no pain, good posture, ROM and strength. Patient is ready for DC and has met PT goals. Chart was DC'd after 30 days. Electronically signed by: Elva Hernandez, PT Please sign and return to therapist. Thank you for your referral.
== END 2024-01-15 10:19 | disposition home or self-care (01) ==
LOC: HO.PTCHIC 10:00
PROVIDERS: PCP Internal Medicine; Visit Provider Physical Medicine & Rehabilitation
DX: S39.013D Strain of muscle, fascia and tendon of pelvis, subsequent encounter (principal); S32.10XD Unspecified fracture of sacrum, subsequent encounter for fracture with routine healing
CPT/HCPCS: 97110; 97162

== ENCOUNTER 2023-12-21 07:52 | Outpatient (REF) | payer MEDICARE, BC, SELFPAY ==
--- NOTE | ~2023-12-21 | CT_ITS ---
EXAMINATION: CT PELVIS WITHOUT CONTRAST CLINICAL INFORMATION: Bilateral sacral insufficiency fractures. Evaluate healing. COMPARISON: Pelvic MRI dated 10/03/2023. TECHNIQUE: Helical scanning was performed with submillimeter collimation through the pelvis. Sagittal and coronal multiplanar 2-D reconstructions were obtained. This CT examination was performed using dose optimization techniques as appropriate, variously including the following: *Automated exposure control *Adjustment of mA and/or kV according to patient size (this includes techniques or standardized protocols for targeted exams where dose is matched to indication/reason for exam; i.e. extremities or head) *Use of iterative reconstruction technique DLP: 688 mGy-cm. FINDINGS: PELVIS: The visualized intrapelvic structures are grossly unremarkable. No significant soft tissue mass or fluid collection. No pelvic wall hernia. OSSEOUS STRUCTURES: Irregular, somewhat linear, sclerosis to the anterior aspect of the left sacral ala, contacting the anterior cortex, with a nondisplaced fracture line measuring up to 0.1 cm in ML dimension. Findings likely represent interval healing of the previously seen insufficiency fracture. Exact percentage of osseous bridging is difficult to calculate; however, appears to represent approximately 80% of the fracture line. Additional sclerosis more posteriorly within the left sacral ala, adjacent to the sacroiliac joint, likely indicating a healing insufficiency fracture. No new fracture or dislocation. 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 Degenerative disc disease and facet arthropathy partially visualized within the lower lumbar spine. No proximal femoral stress reaction, fracture, or avascular necrosis. No concerning lytic or blastic osseous lesion. CT/CT bony pelvis IMPRESSION: 1. Findings consistent with interval healing of the previously seen left sacral ala insufficiency fracture. Exact percentage of osseous bridging is difficult to calculate; however, appears to represent approximately 80% of the fracture line. Additional sclerosis more posteriorly within the left sacral ala, adjacent to the sacroiliac joint, likely indicating a healing insufficiency fracture. 2. No new fracture or dislocation. 3. 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 Degenerative disc disease and facet arthropathy partially visualized within the lower lumbar spine.
== END 2023-12-21 07:53 | disposition home or self-care (01) ==
LOC: HO.CT 07:52
PROVIDERS: PCP Internal Medicine; Visit Provider Physical Medicine & Rehabilitation
DX: M84.48XA Pathological fracture, other site, initial encounter for fracture (principal)
CPT/HCPCS: 72192

== ENCOUNTER 2023-12-21 10:00 | Outpatient (AMB) | payer MEDICARE, BC, SELFPAY ==
[2023-12-21 10:02] VITALS: BP 118/74; PULSE 64; O2SAT 97; BMI 29.9
--- NOTE | 2023-12-21 10:02 | A.OFFPC_ITS ---
Vital Signs 12/21/23 10:02 Height 5 ft 7 in Weight 191 lb 0.8 oz BMI 29.9 BP 118/74 Blood Pressure Location Lt brachial Position Sitting Pulse 64 Pulse Source Pulse Oximeter Pulse Oximetry (%) 97 Oxygen Delivery Method Room Air Intake Visit Reasons: Annual exam Intake Note: Patient is here today for a physical. Drying Tunnel Operator Required: No Allergies N.K.D.A. Allergy (Unknown, Uncoded 12/21/23 10:02) NKDA Medication List - Last Reconciled 12/21/23 by Royal Mendoza MD calcium carb,lactat-vitamin D3 200 mg-6.25 mcg (250 unit) tabs PO .once a day cholecalciferol (vitamin D3) 25 mcg PO DAILY compress.stocking,knee,reg,med As directed multivitamin 1 tab PO DAILY Tobacco use date assessed: 12/21/23 Fall risk assessment: No Falls in past year Last assessed Fall Risk: 12/21/23 Dental Screening Dental Screen Date: 12/21/23 Did you have a dental visit in the last 12 months?: No Did you have a dental problem in the last 6 months where you did not have access to dental care?: No HPI Annual exam HPI Details 63-year-old overweight female with a his tory of anemia coming in for physical exam last seen in July 2023. Patient's colonoscopy is due August 2019 tubular adenoma mammogram is up-to-date bone density is up-to-date. Review of the notes seeing Orthopedics had sacral fracture fell off the horse July 2023 hairline fracture of the pelvis nonsurgical [facility] Medical History (Updated 12/21/23 @ 10:42 by Royal Mendoza MD) Overweight (BMI 25.0-29.9) Cough SOB (shortness of breath) on exertion Obesity (BMI 30-39.9) Right arm fracture Melanoma of lip Osteopenia Tubular adenoma of colon Peripheral vascular disease Surgical History History of hemorrhoidectomy Fracture of phalanx of right ring finger History of surgery on right wrist Ovarian tumor Right fibular fracture Family History Father FH: prostate cancer Skin cancer Colon cancer Atrial fibrillation Mother Social History (Updated 12/21/23 @ 10:39 by Royal Mendoza MD) Household Members: Significant Other Housing: House Are you a primary direct support professional caregiver to a significant other at home: No Do you presently have visiting nurse or other home services: No Alcohol intake: current Alcohol intake frequency: holidays/special occasions only Comment: 1-2 x a week 2-3 drinks Patient Tobacco Use Status: Never used Tobacco Years Smoked: second hand smoke 14 years old did smoke 3 months e-Cigarette/Vaping Use: Never Used Second Hand Smoke Exposure: No service: No Current occupational status: employed and retired 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 1. Little interest or pleasure in doing things: not at all 2. Feeling down, depressed, or hopeless: not at all 3. Trouble falling or staying asleep, or sleeping too much: not at all 4. Feeling tired or having little energy: not at all 5. Poor appetite or overeating: not at all 6. Feeling bad about yourself - or that you are a failure or have let yourself or your family down: not at all 7. Trouble concentrating on things, such as reading the newspaper or watching television: not at all 8. Moving or speaking so slowly that other people could have noticed. Or the opposite - being so fidgety or restless that you have been moving around a lot more than usual: not at all 9. Thoughts that you would be better off or of hurting yourself in some way: not at all Total score: 0 Depression Screening Interpretation: Negative Depression Screening Done: Yes 19345 - PHQ-9 Billing: Yes Source: Developed by Drs. Mitchell Zapata, Tejal Moreno, Agapito Umanzor and colleagues, with an educational ailyn from [employer] Thrive Questionnaire Date Thrive assessed: 12/21/23 I am a: Patient What is your living situation today?: I have a steady place to live Within the past 12 months, did the food you bought not last and you didn't have the money to get more?: Never true Within the past 12 months, did you worry whether your food would run out before you got money to buy more?: Never true Do you have trouble paying for medicines?: No Do you have trouble getting transportation to medical appointments?: No Do you have trouble paying your heating and electricity bill?: No Do you have trouble taking care of your child, family member or friend?: No Do you have trouble with day-to-day activities such as bathing, preparing meals, shopping, managing finances, etc.?: No Are you currently unemployed and looking for a job?: No Are you interested in more education?: No Please select the resources that you would like help with: None Currently or been in a relationship where the following occur: no concerns reported THRIVE Score: 0 AUDIT C Alcohol Use Questionnaire (AUDIT-C) 1. How often do you have a drink containing alcohol?: Monthly or less 2. How many drinks containing alcohol do you have on a typical day when you are drinking?: 1 or 2 3. How often do you have six or more drinks on one occasion?: Never Total Score: 1 Score Reviewed/Action Taken: No JEFFREY-7 AMB Questionnaire JEFFREY-7 Date JEFFREY - 7 assessed: 12/21/23 Feeling nervous, anxious, or on edge: 0 = Not at all Not being able to stop or control worryin = Not at all Worrying too much about different things: 0 = Not at all Trouble relaxin = Not at all Being so restless that it is hard to sit still: 0 = Not at all Becoming easily annoyed or irritable: 0 = Not at all Feeling afraid as if something awful might happen: 0 = Not at all Total JEFFREY-7 score (0-4 normal; 5-9 mild; 10-14 moderate; 15-21 severe): 0 Source: Developed by Drs. Mitchell Zapata, Tejal Moreno, Agapito Umanzor and colleagues, with an educational ailyn from [employer] JEFFREY-7 Assessment Billing JEFFREY-7 Assessment Tool: JEFFREY-7 Assessment 87333 Review of Systems Const Denies poor appetite and Denies weakness Eyes Denies no additional complaints ENT Reports Normal hearing present, Denies dizziness, Denies nasal congestion, Denies tinnitus and Denies sore throat Card Denies chest pain, Denies syncope, Denies rapid heart rate and Denies dyspnea Resp Denies cough and Denies dyspnea GI Denies change in stool character, Reports constipation, Denies diarrhea, Denies nausea and Denies vomiting Denies urinary frequency, Denies difficulty voiding and Denies dysuria Neuro Reports Normal hearing present, Denies confusion, Denies dizziness, Denies syncope and Denies weakness Psych Denies confusion Physical exam (Primary Care) Vital Signs: Last Vital Signs Pulse 64 12/21/23 10:02 BP 118/74 12/21/23 10:02 Pulse Ox 97 12/21/23 10:02 Oxygen Delivery Method Room Air 12/21/23 10:02 BMI result Body Mass Index 29.9 Tobacco/Smoking Status: Tobacco use Status Tobacco use date assessed 12/21/23 12/21/23 10:10 Patient Tobacco Use Status Never used Tobacco 12/21/23 10:39 e-Cigarette/Vaping Use Never Used 12/21/23 10:39 PHQ-9: PHQ-9 Score PHQ-9: Total score 0 12/21/23 10:55 Depression Screening Interpretation: Negative Thrive Assessment: Date of Thrive Assessment Date Thrive assessed 12/21/23 12/21/23 10:10 Currently or been in a relationship where the following occur: no concerns reported Const General: No confusion Orientation/consciousness: No confusion Neuro General: No confusion Cranial nerves: Yes Normal hearing present Immunizations pneumoc 20-maida conj-dip cr(PF) 0.5 mL IM syringe Performing Provider: Royal Mendoza MD Performing Location: [facility] Administered by: BELKYS Galeas on 12/21/23 10:56 Dose Route Admin Location Dispensed Lot Number Expiration Date [facility] [place] [employer] 0.5 mL IM Left Deltoid 0.5 mL [id number] 11/16/24 [employer] VIS Given Date VIS Provided VIS Publication Date 12/21/23 Single Vaccine 21 Eligibility Eligibility Date Funding Source Not [facility] Eligible 12/21/23 Private Assessment and Plan Assessment & Plan (1) Annual physical exam: Code(s): Z00.00 - Encounter for general adult medical examination without abnormal findings (2) Overweight (BMI 25.0-29.9): Code(s): E66.3 - Overweight (3) Impaired glucose tolerance: Code(s): R73.02 - Impaired glucose tolerance (oral) (4) Sacral fracture, closed: Code(s): S32.10XA - Unspecified fracture of sacrum, initial encounter for closed fracture Qualifiers: Encounter type: initial encounter Zone of sacrum fracture: unspecified portion of sacrum Qualified Code(s): S32.10XA - Unspecified fracture of sacrum, initial encounter for closed fracture Plan: PAtient follosws up with Ortho and Ct scan done (5) Tubular adenoma of colon: Code(s): D12.6 - Benign neoplasm of colon, unspecified (6) Frequency of micturition: Code(s): R35.0 - Frequency of micturition Orders: Orders UA CC w/rflx Micro + Cult Today R30.0 - Dysuria, R35.0 - Frequency of micturition Complete Blood Count Auto Diff Today D64.9 - Anemia, unspecified Free T4 (Free Thyroxine) Today D64.9 - Anemia, unspecified Ferritin Today D64.9 - Anemia, unspecified Reticulocyte Count Today D64.9 - Anemia, unspecified Thyroid Stimulating Hormone Today D64.9 - Anemia, unspecified Comprehensive Met. Panel Today D64.9 - Anemia, unspecified IRON PROFILE Today D64.9 - Anemia, unspecified Vitamin B12 and Folate Today D64.9 - Anemia, unspecified Pneumococcal 20 Immunization Today Z23 - Encounter for immunization Referrals Gastroenterology Referral D12.6 - Benign neoplasm of colon, unspecified Medications: New pneumoc 20-maida conj-dip cr(PF) 0.5 mL IM ONCE 0.5 mL 0RF Z23 - Encounter for immunization Coding Level of Care Code Est Pt Prev Care >65y(83404) Diagnoses Annual physical exam Z00.00 Overweight (BMI 25.0-29.9) E66.3 Impaired glucose tolerance R73.02 Closed fracture of sacrum, unspecified portion of sacrum, initial encounter S32.10XA Encounter type: initial encounter Zone of sacrum fracture: unspecified portion of sacrum Tubular adenoma of colon D12.6 Frequency of micturition R35.0 Additional Codes JEFFREY-7 Assessment Billing - JEFFREY-7 Assessment Tool: JEFFREY-7 Assessment [id number] ([id number])
== END 2023-12-21 11:03 | disposition home or self-care (01) ==
PROVIDERS: Visit Provider Internal Medicine
DX: Z23 Encounter for immunization (principal); Z00.00 Encounter for general adult medical examination without abnormal findings; R73.02 Impaired glucose tolerance (oral); Z86.010 Personal history of colon polyps; R35.0 Frequency of micturition
CPT/HCPCS: 90471; 90677; 99397

== ENCOUNTER 2024-03-19 11:29 | Outpatient (AMB) | payer MEDICARE, BC, SELFPAY ==
--- NOTE | 2024-03-19 11:48 | A.OFFVIS_ITS ---
Vital Signs 3 03/19/24 11:50 Height 5 ft 7 in Weight 193 lb 9.054 oz BMI 30.3 BP 124/60 Blood Pressure Location Rt brachial Position Sitting Pulse 63 Intake Visit Reasons: Colonoscopy screening Intake Note: Fatmata presents to in office visit as a new patient for colonoscopy screening. CC: Allergies No Known Drug Allergies Allergy (Unknown, Verified 03/19/24 11:59) none HPI HPI Colonoscopy screening : Details: 64-year-old female here for preprocedural meeting to discuss a screening colonoscopy. She is referred by Royal Mendoza of [facility]. P.m. X Obesity History of sacral fracture Eczema Actinic keratosis Tubular adenoma Plantar fasciitis Peripheral vascular disease History of right arm fracture in childhood History of melanoma of the lip Osteopenia * SURGICAL HISTORY Hemorrhoidectomy Repair of right finger fracture Repair fibular head fracture * ALLERGIES: NKDA * [employer] LABS: NONE SINCE 07/2023 COLONOSCOPY-GURMEET FINDINGS: Digital rectal exam revealed no specific lesion. Video colonoscope was introduced without difficulty. It was navigated into the rectosigmoid and sigmoid. Colon was slightly floppy and redundant. Slow progress through sigmoid, descending colon. Flexures were somewhat eccentrically positioned. Scope was maneuvered through transverse, ascending colon down into the cecal cap. Appendiceal orifice was seen. Ileocecal valve was well seen. No mucosal abnormalities were appreciated. Prep was excellent. As slow withdrawal, good rotational views, diminutive polyps were noted and removed as listed 50 cm, 30 cm, and 20 cm. This was done with use of excisional biopsy forceps and submitted separately. PLAN: Current recommendations in this patient are to continue screening in a 5-year basis or if any episodes of significant rectal bleeding. GRAFT OR IMPLANTS: No grafts or implants. CONDITION: Postprocedure, stable. Debby Marcus MD MEN/MODL A. Colon, polyp at 50 cm, polypectomy: Polypoid colonic mucosa with mild surface hyperplastic changes; negative for dysplasia. B. Colon, polyp at 30 cm, polypectomy: Fragments of tubular adenoma. C. Colon, polyp at 20 cm, polypectomy: Polypoid colonic mucosa within normal limits; negative for dysplasia. TODAY'S VISIT NEEDS TO GO FOR LABS She denies any bowel or upper GI problems. There are no prior problems with anesthesia or sedation. She denies any cardiac or respiratory problems. No ID problems. She had a polyps and her father of stage III CRC. [facility] Medical History Overweight (BMI 25.0-29.9) Cough SOB (shortness of breath) on exertion Obesity (BMI 30-39.9) Right arm fracture Melanoma of lip Osteopenia Tubular adenoma of colon Peripheral vascular disease Surgical History H/O colonoscopy S/P ORIF (open reduction internal fixation) fracture History of hemorrhoidectomy Fracture of phalanx of right ring finger Ovarian tumor Right fibular fracture Family History Father FH: prostate cancer Skin cancer Colon cancer Atrial fibrillation Mother Social History Household Members: Significant Other Housing: House Are you a primary child care lead teacher to a significant other at home: No Do you presently have visiting nurse or other home services: No Alcohol intake: current Alcohol intake frequency: holidays/special occasions only Comment: 1-2 x a week 2-3 drinks Patient Tobacco Use Status: Never used Tobacco Years Smoked: second hand smoke 14 years old did smoke 3 months e-Cigarette/Vaping Use: Never Used Second Hand Smoke Exposure: No service: No Current occupational status: employed and retired 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[employer]/ [employer] Cognitive needs: No Hearing needs: No Vision needs: Yes (Glasses) Review of Systems Const Denies fatigue, Denies fever(s), Denies night sweats, Denies poor appetite and Denies weight loss Eyes Reports requires corrective lenses ENT Reports Normal hearing present, Denies dental pain, Denies dysphagia, Denies hearing loss, Denies mouth pain, Denies odynophagia, Denies throat swelling, Denies tongue swelling and Reports other (Dentition adequate) GI Details: Denies abdominal pain, Denies melena, Denies bloating, Denies hematochezia, Denies constipation, Denies GI cramping, Denies dysphagia, Denies excessive flatus, Denies early satiety, Denies heartburn, Denies diarrhea, Denies nausea, Denies odynophagia, Denies vomiting and Denies hematemesis Skin/Breast Denies pruritus, Denies lesions, Denies rash and Denies jaundice Neuro Reports Normal hearing present and Denies Abnormal speech present Endo Denies fatigue Aller/Immun Denies throat swelling and Denies tongue swelling Physical Exam Vital Signs: Last Vital Signs Pulse 63 03/19/24 11:50 BP 124/60 03/19/24 11:50 BMI result Body Mass Index 30.3 Const General: cooperative, no acute distress, well developed and well groomed Nutritional Appearance: well nourished, obese and overweight Orientation/consciousness: oriented to person, oriented to place and oriented to time Limitations: No language barrier, ambulation with cane, ambulation with walker and wheelchair HEENT Head: Yes normocephalic and Yes atraumatic Eyes General: appearance normal, both eyes and all related structures Pupils: Equal, round and reactive pupils present Neck Neck: Yes normal visual inspection and Yes no lymphadenopathy Thyroid: Thyroid normal Resp Effort & Inspection: normal respiratory effort and able to speak in complete sentences Auscultation: clear to auscultation bilaterally Cardio Rate: regular rate Rhythm: regular rhythm Heart sounds: Normal, physiologic split S2 sound present Peripheral pulses: radial pulses present and posterior tibial pulses present GI Inspection: No distended, No Abdominal panniculus present and Yes obesity Palpation (GI): Soft to palpation, nontender, no guarding, not rigid, No hepatosplenomegaly present and Hepatosplenomegaly present Percussion: Yes normal to percussion Auscultation: normal bowel sounds Rectal Exam - Female: deferred Abdomen image: 2 1. surgical scar Skin General skin exam: no rashes or lesions noted, turgor normal, skin not dry, no jaundice, No spider nevi and no striae Rashes: no rashes Nails: normal Neuro General: oriented to person, oriented to place and oriented to time Cranial nerves: Yes Equal, round and reactive pupils present and Yes Normal hearing present Speech: No Abnormal speech present Extrem General: Yes normal to inspection, No clubbing, No cyanosis and No edema Psych Thought process: Normal thought process present and not confabulating Thought content: Normal thought content present Insight: Good insight present (Psych) Judgement: Good judgement present (Psych) Assessment & Plan Assessment & Plan (1) Tubular adenoma of colon: Comment: 2019 scope-Marcus= TA repeat in 5 years Code(s): D12.6 - Benign neoplasm of colon, unspecified Category: Medical (2) Family history of colon cancer in father: Comment: Father of stage III colon cancer Code(s): Z80.0 - Family history of malignant neoplasm of digestive organs Category: Medical (3) Pre-op examination: Code(s): Z01.818 - Encounter for other preprocedural examination Category: Medical Plan NEEDS TO GO FOR LABS She denies any bowel or upper GI problems. There are no prior problems with anesthesia or sedation. She denies any cardiac or respiratory problems. No ID problems. She had a polyps and her father of stage III CRC. Orders: Orders 2 Complete Blood Count Auto Diff 03/19/24 D12.6 - Benign neoplasm of colon, unspecified, Z01.818 - Encounter for other preprocedural examination, Z80.0 - Family history of malignant neoplasm of digestive organs Comprehensive Met. Panel 03/19/24 D12.6 - Benign neoplasm of colon, unspecified, Z01.818 - Encounter for other preprocedural examination, Z80.0 - Family history of malignant neoplasm of digestive organs Colonoscopy - GI Use Only 03/19/24 D12.6 - Benign neoplasm of colon, unspecified, Z01.818 - Encounter for other preprocedural examination, Z80.0 - Family history of malignant neoplasm of digestive organs Medications: New 2 bisacodyl (Dulcolax (bisacodyl)) 10 mg (2 x 5 mg) PO BEDTIME 4 tabs 0RF 2 days peg 3350-electrolytes 236-22.74-6.74 -5.86 gram (Golytely) until fecal effluent is clear; do not exceed a total volume of 2,000 mL 240 mL PO Q10M 4,000 mL 0RF 1 day Z12.11 - Encounter for screening for malignant neoplasm of colon Coding Level of Care Code New Pt Level 3 (03678) Diagnoses Tubular adenoma of colon D12.6 Family history of colon cancer in father Z80.0 Pre-op examination Z01.818
[2024-03-19 11:50] VITALS: BP 124/60; PULSE 63; BMI 30.3
== END 2024-03-19 12:23 | disposition home or self-care (01) ==
PROVIDERS: PCP Internal Medicine; Visit Provider Nurse Practitioner
DX: D12.6 Benign neoplasm of colon, unspecified (principal); Z80.0 Family history of malignant neoplasm of digestive organs; Z01.818 Encounter for other preprocedural examination
CPT/HCPCS: 99203

== ENCOUNTER → 2024-03-19 11:29 | Outpatient (BNVA) | payer MEDICARE, BC, SELFPAY | PROVIDERS: PCP Internal Medicine; Visit Provider Nurse Practitioner | DX: Z01.818 Encounter for other preprocedural examination (principal); D12.6 Benign neoplasm of colon, unspecified; Z80.0 Family history of malignant neoplasm of digestive organs | CPT/HCPCS: 99202 ==

== ENCOUNTER 2024-06-22 08:01 | Outpatient (REF) | payer MEDICARE, BC, SELFPAY ==
--- NOTE | ~2024-06-22 | MM_ITS ---
EXAMINATION: MM SCREENING DIGITAL BREAST TOMOSYNTHESIS, BILATERAL CLINICAL INFORMATION: Screening. Asymptomatic. COMPARISON: Mammography: Comparison is made with available priors TECHNIQUE: Digital breast mammography with tomosynthesis is performed in both the craniocaudal and mediolateral oblique views along with computer-aided detection (CAD). FINDINGS: There are scattered areas of fibroglandular density (ACR BI-RADS breast composition Category b). There are no significant masses, abnormal calcifications, or other abnormalities. MM/MM tomosynthesis screening BI IMPRESSION: No mammographic evidence of malignancy. ASSESSMENT: BI-RADS BI-RADS 1 - Negative RECOMMENDATION: Routine annual mammography screening. 1 year F/U This examination should not preclude the clinical evaluation of a suspicious palpable abnormality. This patient's information was entered into a reminder system with a target due date for their next mammogram. Electronically signed by: Gris Vogt DO 07/03/2024 04:22 PM EDT
== END 2024-06-22 08:02 | disposition home or self-care (01) ==
LOC: HO.MAMMO 08:01
PROVIDERS: PCP Internal Medicine; Visit Provider Internal Medicine
DX: Z12.31 Encounter for screening mammogram for malignant neoplasm of breast (principal)
CPT/HCPCS: 77063; 77067

== ENCOUNTER → 2024-06-22 08:15 | Outpatient (BNV) | payer MEDICARE, BC, SELFPAY | PROVIDERS: PCP Internal Medicine; Visit Provider Internal Medicine | DX: Z12.31 Encounter for screening mammogram for malignant neoplasm of breast (principal) | CPT/HCPCS: 77063; 77067 ==

== ENCOUNTER 2024-07-26 08:36 | Outpatient (REF) | payer MEDICARE, BC, SELFPAY ==
[2024-07-26 09:45] LABS: Basophils Percent Auto 0.5 % (0-2); Eosinophils Absolute Auto 0.1 X10*3/uL (0.0-0.4); Eosinophils Percent Auto 1.6 % (0-4); Hematocrit 35.8 % (37.0-47.0); Hemoglobin 12.4 g/dl (12.0-16.0); Imm Gran Abs Auto 0.02 X10*3/uL (0.00-0.03); Imm Gran Pct Auto 0.3 % (0.0-0.4); Immature Retic Fraction 8.6 % (3.0-15.9); Lymphocytes Absolute Auto 1.6 X10*3/uL (1.2-4.9); Lymphocytes Percent Auto 21.9 % (20-40); MANUAL DIFF FLAG NO; Mean Corpuscular HGB Conc 34.6 g/dl (31.0-35.0); Mean Corpuscular Hemoglobin 31.9 pg (27.0-33.0); Mean Platelet Volume 9.4 fL (9.4-12.3); Monocytes Absolute Auto 0.4 X10*3/uL (0.1-1.2); Monocytes Percent Auto 5.9 % (2-11); Neutrophils Absolute Auto 5.1 x10*3/uL (2.0-8.3); Neutrophils Percent Auto 69.8 % (45-73); Platelet Count 153 X10*3/uL (160-400); Red Blood Count 3.89 X10*6/uL (4.20-5.50); Red Cell Distribution Width 13.3 % (11.0-16.0); Retic HGB Equivalent 35.5 pg (30.0-35.0); Reticulocyte Percent 2.3 % (0.5-1.8); Reticulocytes Absolute 0.091 X10*6/uL (0.026-0.095); White Blood Count 7.4 X10*3/uL (4.8-10.8)
[2024-07-26 10:50] LABS: Appearance Urine Clear; Color Urine Yellow; Glucose Urine UA Negative (Negative); Leukocyte Esterase Urine Negative (Negative); Nitrite Urine Negative (Negative); PH 5.5 (5.0-9.0); UMIC TRIGGER UACC YES; Urine Blood Trace (Negative); Urine Ketones Negative (Negative); Urine Protein Negative (Neg-Trace)
[2024-07-26 10:54] LABS: Bacteria Urine None Seen (None Seen); Hyaline Casts Urine 0-2 /LPF (0-2); RBC Urine 0-2 /HPF (0-2); Squamous Epithelial Cell Urine 0-2 /HPF (0-2); WBC Urine 0-5 /HPF (0-5)
[2024-07-26 12:05] LABS: Ferritin 594 ng/mL (10-250); Free T4 (Free Thyroxine) 0.96 ng/dL (0.71-1.85)
[2024-07-26 12:07] LABS: Alanine Aminotransferase 17 U/L (0-31); Albumin Level 4.3 g/dL (3.5-5.0); Alkaline Phosphatase 74 U/L (39-117); Anion Gap 14 (12-20); Aspartate Amino Transferase 26 U/L (5-31); Bilirubin Total 1.1 mg/dL (0.0-1.0); Blood Urea Nitrogen 19 mg/dL (9-16); Calcium 9.3 mg/dL (8.4-10.2); Carbon Dioxide 25 mmol/L (22-29); Chloride 107 mmol/L (96-108); Estimated Glomerular Filt Rate > 60; Glucose Random 100 mg/dL (60-115); Iron 48 mcg/dL (30-160); Percent Iron Saturation 20 % (15-50); Potassium 4.5 mmol/L (3.3-5.1); Sodium 141 mmol/L (135-145); Total Iron Binding Capacity 243 mcg/dL (228-428); Total Protein 7.2 g/dL (6.5-8.0); Unsaturated Iron Binding 195 ug/dL
[2024-07-26 12:10] LABS: Folate 12.3 ng/mL (> or = 4.0); Vitamin B12 470 pg/mL (200-900)
[2024-07-26 12:26] LABS: Thyroid Stimulating Hormone 2.82 uIU/mL (0.32-4.0)
== END 2024-07-26 08:37 | disposition home or self-care (01) ==
LOC: HO.LAB 08:36
PROVIDERS: PCP Internal Medicine; Visit Provider Nurse Practitioner
DX: Z01.818 Encounter for other preprocedural examination (principal); Z80.0 Family history of malignant neoplasm of digestive organs; D12.6 Benign neoplasm of colon, unspecified; D64.9 Anemia, unspecified
CPT/HCPCS: 36415; 80053; 81001; 82607; 82728; 82746; 83540; 84439; 84443; 85025; 85045

== ENCOUNTER 2024-08-01 07:53 | Day surgery (SDC) | payer MEDICARE, BC, SELFPAY ==
[2024-07-30 13:57] VITALS: BMI 30.4
[2024-08-01 07:57] VITALS: BP 120/66; PULSE 77; RESP 70; TEMP 36.9; O2SAT 99; BMI 30.5
[2024-08-01] MEDS: Lactated Ringers 1,000 ML 100 ML IVCONT (08:17)
--- NOTE | 2024-08-01 08:37 | MHC.SHP ---
Pre-Procedural Eval Section A - 24 Hr Update-Section A only Date of Service: 08/01/24 Section B - Complete if H&P > 30 days Chief Complaint: Personal hx of polyps, fam hx of CRC Details of Present Illness: P.m. X Obesity History of sacral fracture Eczema Actinic keratosis Tubular adenoma Plantar fasciitis Peripheral vascular disease History of right arm fracture in childhood History of melanoma of the lip Osteopenia * SURGICAL HISTORY Hemorrhoidectomy Repair of right finger fracture Repair fibular head fracture * ALLERGIES: NKDA * [employer] LABS: NONE SINCE 07/2023 Present Medications: see Short Stay Collaborative assessment Allergies: Allergies Allergy/AdvReac Type Severity Reaction Status Date / Time No Known Drug Allergies Allergy Unknown none Verified 03/19/24 11:59 Review of Systems Review of Systems Comment: Ten point ROS negative Exam Exam Comment: Gen appear: No acute distress HEENT: no icterus Chest: No overt resp distress Abd: soft, nontender, nondistended Psych: Stable affect, answering questions appropriately Neuro: A/Ox3 noted to move all extremities spontaneously Ext: no peripheral edema Plan Diagnosis/Plan: Unchanged I have reviewed the history and physical and performed a pertinent physical examination on my patient. No changes have occurred unless specified. Time Spent With Patient Time: Total time managing care of this patient today ____ minutes.
--- NOTE | 2024-08-01 09:00 | P.CONAN_ITS ---
Documented by User: Gina Senior NP 07/31/24 08:40 HPI - Anesthesia Eval Consult details Narrative: 64yo F for Colonoscopy PMFSH Active Problems Active Problems: All Active Problems Pre-op examination (Acute) Fibroepithelial polyp (Acute) Family history of colon cancer in father (Acute) Frequency of micturition (Acute) Tubular adenoma of colon (Acute) Strain of left inguinal muscle (Acute) Sacral fracture, closed (Acute) Pain in sacrum (Acute) Left hip pain (Acute) Numbness of right hand (Acute) Right arm pain (Acute) Cervical cancer screening (Acute) Hematuria (Acute) Eczema (Acute) Anemia (Chronic) Actinic keratosis (Acute) Vitamin D deficiency (Acute) Impaired glucose tolerance (Acute) Obesity (BMI 30-39.9) (Acute) Annual physical exam (Acute) Plantar fasciitis of right foot (Acute) Peripheral vascular disease (Acute) Past Medical History Medical History (Updated 08/01/24 @ 08:06 by Esther Khoury RN) Hx of fracture of pelvis Cough SOB (shortness of breath) on exertion Obesity (BMI 30-39.9) Overweight (BMI 25.0-29.9) Right arm fracture Melanoma of lip Osteopenia Tubular adenoma of colon Peripheral vascular disease Family History Family History Father FH: prostate cancer Skin cancer Colon cancer Atrial fibrillation Mother Surgical History Surgical History H/O colonoscopy S/P ORIF (open reduction internal fixation) fracture History of hemorrhoidectomy Fracture of phalanx of right ring finger Ovarian tumor Right fibular fracture Social History Social History Household Members: Significant Other Housing: House Are you a primary director of patient care to a significant other at home: No Do you presently have visiting nurse or other home services: No Alcohol intake: current Alcohol intake frequency: holidays/special occasions only Comment: 1-2 x a week 2-3 drinks Patient Tobacco Use Status: Never used Tobacco Years Smoked: second hand smoke 14 years old did smoke 3 months e-Cigarette/Vaping Use: Never Used Second Hand Smoke Exposure: No Have you been hit, kicked, punched, or otherwise hurt by someone within the past year? 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[employer]/ [employer] Cognitive needs: No Hearing needs: No Vision needs: Yes (Glasses) Meds Allergies Allergy/AdvReac Type Severity Reaction Status Date / Time No Known Drug Allergies Allergy Unknown none Verified 03/19/24 11:59 Home Medications ?Medication ?Instructions ?Recorded ?Confirmed ?Last Taken ?Type multivitamin 1 tab PO DAILY 07/27/20 07/30/24 07/30/24 History cholecalciferol (vitamin D3) 25 25 mcg PO DAILY 12/13/21 07/30/24 07/30/24 History mcg (1,000 unit) capsule calcium carb and lactate 200 1 tab PO DAILY 12/21/23 07/30/24 07/30/24 History mg-vitamin D3 6.25 mcg (250 unit) tablet Exam Height,Weight and Vital Signs: Height 5 ft 7 in Weight 87.997 kg Assessment and Plan Assessment Anesthesia Assessment: Chart Reviewed Documented by User: Vilma Dickinson DO 08/01/24 09:06 [facility] Past Medical History Medical History (Updated 08/01/24 @ 08:06 by Esther Khoury RN) Hx of fracture of pelvis Cough SOB (shortness of breath) on exertion Obesity (BMI 30-39.9) Overweight (BMI 25.0-29.9) Right arm fracture Melanoma of lip Osteopenia Tubular adenoma of colon Peripheral vascular disease Family History Family History Father FH: prostate cancer Skin cancer Colon cancer Atrial fibrillation Mother Family history of problems with anesthesia: No Surgical History Surgical History H/O colonoscopy S/P ORIF (open reduction internal fixation) fracture History of hemorrhoidectomy Fracture of phalanx of right ring finger Ovarian tumor Right fibular fracture History of Problems with Anesthesia: No Social History Social History Household Members: Significant Other Housing: House Are you a primary director of patient care to a significant other at home: No Do you presently have visiting nurse or other home services: No Alcohol intake: current Alcohol intake frequency: holidays/special occasions only Comment: 1-2 x a week 2-3 drinks Patient Tobacco Use Status: Never used Tobacco Years Smoked: second hand smoke 14 years old did smoke 3 months e-Cigarette/Vaping Use: Never Used Second Hand Smoke Exposure: No Have you been hit, kicked, punched, or otherwise hurt by someone within the past year? 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[employer]/ [employer] Cognitive needs: No Hearing needs: No Vision needs: Yes (Glasses) Meds Allergies Allergy/AdvReac Type Severity Reaction Status Date / Time No Known Drug Allergies Allergy Unknown none Verified 03/19/24 11:59 Home Medications ?Medication ?Instructions ?Recorded ?Confirmed ?Last Taken ?Type multivitamin 1 tab PO DAILY 07/27/20 07/30/24 07/30/24 History cholecalciferol (vitamin D3) 25 25 mcg PO DAILY 12/13/21 07/30/24 07/30/24 History mcg (1,000 unit) capsule calcium carb and lactate 200 1 tab PO DAILY 12/21/23 07/30/24 07/30/24 History mg-vitamin D3 6.25 mcg (250 unit) tablet Exam Exam Date and Time: 08/01/24 0900 Height,Weight and Vital Signs: Height 5 ft 7 in Weight 87.997 kg Vital Signs Temperature 98.5 F 08/01/24 07:57 Pulse Rate 77 08/01/24 07:57 Respiratory Rate 70 H 08/01/24 07:57 Blood Pressure 120/66 08/01/24 07:57 Pulse Oximetry 99 11/14/24 07:57 Oxygen Delivery Method Room Air 08/01/24 07:57 Temperature 98.5 F 08/01/24 07:57 Pulse Rate 77 08/01/24 07:57 Respiratory Rate 70 H 08/01/24 07:57 Blood Pressure 120/66 08/01/24 07:57 Pulse Oximetry 99 08/01/24 07:57 Oxygen Delivery Method Room Air 08/01/24 07:57 Airway Mallampati Class: II TM Dist: >3cm Neck ROM: Full Loose/Missing/Broken Teeth: No (patient denies any loose or broken teeth) Heart: S1S2 Lungs: CTAB Assessment and Plan Assessment Anesthesia Assessment: Anesthesia Plan Discussed and Chart Reviewed Final Anesthetic Review Family History of Problems with Anesthesia: No History of Problems with Anesthesia: No NPO: Yes ASA Class: II Final Preanesthetic Review: No Changes in Pt Med Stat, Meds/Allgs Chart Reviewed, Consent Obtained/Reviewed and Anes Risks/Benef Reviewed Patient Risk: Low Procedure Risk: Low Anesthetic Plan Anesthetic Plan: MAC: and Agree w/ Assess. and Plan Disposition: Standard PACU
--- NOTE | 2024-08-01 10:03 | P.OPN-COLO_ITS ---
Colonoscopy Operative Note Operative Note Date of Service: 08/01/24 Narrative: Procedure: Colonoscopy Indication: Personal history of polyps, Family history of colon cancer Endoscopist: Rajwinder Mejia MD Anesthesia Provider: Stephania Tyler CRNA Anesthesia type: MAC Instrument: Olympus [id number]-[id number] Consent: Indication, risks vs benefits, and alternatives were discussed with the patient who gave written informed consent to proceed. EKG, pulse, pulse oximetry and blood pressure were monitored throughout the procedure. Please see anesthesia flowsheet. Procedure: The patient was brought to the procedure room and placed in the left lateral decubitus position. IV medications were administered by the anesthesia provider in attendance. A digital rectal exam was performed which was normal. A distal attachment cap was affixed to the tip of the colonoscope which was then inserted through the anus and advanced through the colon to the cecum at 80 cm,and terminal ileum. Appendiceal orifice and ileocecal valve were identified. Mucosa was carefully examined under high definition white light as the instrument was slowly withdrawn in a retrograde panoramic fashion. Retroflexion was performed in rectum. The procedure was not difficult. There were no immediate obvious complications. The quality of the prep was BBPS: 3+2+3 = adequate Withdrawal time 15 minutes. Limitations: No limitations. Findings: Mucosa: Normal to cecum and terminal ileum. Protruding lesions: * 1 sessile polyp of size 6 mm in transverse colon. Cold snare polypectomy was performed. The polyp was completely removed and retrieved. * 1 sessile polyp of size 3 mm in rectum. Cold snare polypectomy was performed. The polyp was completely removed and retrieved. * Medium internal hemorrhoids without stigmata of recent bleeding. Excavated lesions: * Mild diverticulosis of sigmoid colon. Impression: 1. Normal colon mucosa 2. Total of 2 polyps removed 3. Diverticulosis 4. Internal hemorrhoids Recommendations: - Follow path results. - Repeat colo in 5 years if both polyps are adenoma, otherwise 7 years (can revert to average screening intervals since father was diagnosed with CRC at age >60. )
[2024-08-01 10:06] VITALS: BP 99/54; PULSE 70; RESP 18; TEMP 36.6; O2SAT 97
[2024-08-01 10:21] VITALS: BP 121/64; PULSE 71; RESP 18; TEMP 36.8; O2SAT 98
== END 2024-08-01 11:47 | disposition home or self-care (01) ==
PROVIDERS: PCP Internal Medicine; Visit Provider Internal Medicine
PROC: 0DJD8ZZ Inspection of Lower Intestinal Tract, Via Natural or Artificial Opening Endoscopic (ICD-10-PCS; CPT 45378; principal; 2024-08-01 09:20)
DX: Z12.11 Encounter for screening for malignant neoplasm of colon (principal); Z86.0101 Personal history of adenomatous and serrated colon polyps; Z80.0 Family history of malignant neoplasm of digestive organs; D12.3 Benign neoplasm of transverse colon; K63.5 Polyp of colon; K57.30 Diverticulosis of large intestine without perforation or abscess without bleeding; K64.8 Other hemorrhoids; I73.9 Peripheral vascular disease, unspecified; M85.80 Other specified disorders of bone density and structure, unspecified site; L57.0 Actinic keratosis; E66.9 Obesity, unspecified; Z68.30 Body mass index [BMI] 30.0-30.9, adult; Z98.890 Other specified postprocedural states
CPT/HCPCS: 45385; 88305; J2003; J2250; J2704

== ENCOUNTER → 2024-08-01 07:53 | Outpatient (BNV) | payer MEDICARE, BC, SELFPAY | PROVIDERS: PCP Internal Medicine; Visit Provider Internal Medicine | DX: Z12.11 Encounter for screening for malignant neoplasm of colon (principal); Z86.0100 Personal history of colon polyps, unspecified; Z80.0 Family history of malignant neoplasm of digestive organs; D12.3 Benign neoplasm of transverse colon; K62.1 Rectal polyp | CPT/HCPCS: 45385 ==

== ENCOUNTER 2024-08-14 11:37 | Outpatient (AMB) | payer MEDICARE, BC, SELFPAY ==
--- NOTE | 2024-08-14 12:19 | A.OFFVIS_ITS ---
Vital Signs 08/14/24 12:21 Height 5 ft 7 in Weight 195 lb 12.328 oz BMI 30.7 BP 129/58 L Blood Pressure Location Rt brachial Position Sitting Pulse 73 Intake Visit Reasons: S/p colon Intake Note: Fatmata presents to in office visit today in follow up s/p colonoscopy. CC: Per Pt the first day after colonoscopy she had cramping and she went to the bathroom she saw like blood clots. She also c/o dull ache from abdominal LLQ. small stools since after procedure. Allergies No Known Drug Allergies Allergy (Unknown, Verified 08/14/24 12:40) none HPI HPI S/p colon: Details: Assessment & Plan (1) Tubular adenoma of colon: Comment: 2019 scope-Marcus= TA repeat in 5 years Code(s): D12.6 - Benign neoplasm of colon, unspecified Category: Medical (2) Family history of colon cancer in father: Comment: Father of stage III colon cancer Code(s): Z80.0 - Family history of malignant neoplasm of digestive organs Category: Medical (3) Pre-op examination: Code(s): Z01.818 - Encounter for other preprocedural examination Category: Medical Plan NEEDS TO GO FOR LABS She denies any bowel or upper GI problems. There are no prior problems with anesthesia or sedation. She denies any cardiac or respiratory problems. No ID problems. She had a polyps and her father of stage III CRC. Orders: Orders Complete Blood Count Auto Diff 03/19/24 D12.6 - Benign neoplasm of colon, un specified, Z01.818 - Encounter for other preprocedural examination, Z80.0 - Family history of malignant neoplasm of digestive organs Comprehensive Met. Panel 03/19/24 D12.6 - Benign neoplasm of colon, unspecified, Z01.818 - Encounter for other preprocedural examination, Z80.0 - Family history of malignant neoplasm of digestive organs Colonoscopy - GI Use Only 03/19/24 D12.6 - Benign neoplasm of colon, unspecified, Z01.818 - Encounter for other preprocedural examination, Z80.0 - Family history of malignant neoplasm of digestive organs Medications: New bisacodyl (Dulcolax (bisacodyl)) 10 mg (2 x 5 mg) PO BEDTIME 4 tabs 0RF 2 days peg 3350-electrolytes 236-22.74-6.74 -5.86 gram (Golytely) until fecal effluent is clear; do not exceed a total volume of 2,000 mL 240 mL PO Q10M 4,000 mL 0RF 1 day Z12.11 - Encounter for screening for malignant neoplasm of colon LABS Laboratory Tests 07/26/24 09:11 WBC 7.4 Hgb 12.4 Hct 35.8 L MCV 92.0 MCH 31.9 Plt Count 153 L Estimated GFR > 60 Total Bilirubin 1.1 H AST 26 ALT 17 Alkaline Phosphatase 74 TSH 2.82 Free T4 0.96 COLONOSCOPY 08/01/24 Findings: Mucosa: Normal to cecum and terminal ileum. Protruding lesions: * 1 sessile polyp of size 6 mm in transverse colon. Cold snare polypectomy was p erformed. The polyp was completely removed and retrieved. * 1 sessile polyp of size 3 mm in rectum. Cold snare polypectomy was performed. The polyp was completely removed and retrieved. * Medium internal hemorrhoids without stigmata of recent bleeding. Excavated lesions: * Mild diverticulosis of sigmoid colon. Impression: 1. Normal colon mucosa 2. Total of 2 polyps removed 3. Diverticulosis 4. Internal hemorrhoids Recommendations: - Follow path results. - Repeat colo in 5 years if both polyps are adenoma, otherwise 7 years (can revert to average screening intervals since father was diagnosed with CRC at age >60. ) BISOPY Received: 08/01/24 Diagnosis A. Colon, transverse, polypectomy: Tubular adenoma; negative for high-grade dysplasia. B. Rectum, polypectomy: Hyperplastic polyp. TODAYS VISIT She had RB in the TT after the scope (likely rectal polyp). She also has not returned to normal BM's since, pudding like and thin. Also stitch in LLQ. Start metamucil bid and rov 6-8 weeks. She is quite agreeable to a 5 year follow-up. The procedure was well tolerated. The results were explained and the patient is agreeable to the follow-up interval as stated. Education was provided to tell any 1st degree relatives about their findings to be sure that they are screened by age 45. Educated that they will be put on a recall list when it is time for their repeat scope but should they move out of state or away from the hospital they will need to remember along with their primary to repeat the procedure in a timely fashion to avoid any adverse complications. [facility] Medical History (Updated 08/14/24 @ 17:12 by HUAN Aguilar) Family history of colon cancer in father Left hip pain Pain in sacrum Annual physical exam Cervical cancer screening Fibroepithelial polyp Pre-op examination Hx of fracture of pelvis Cough SOB (shortness of breath) on exertion Obesity (BMI 30-39.9) Overweight (BMI 25.0-29.9) Right arm fracture Melanoma of lip Osteopenia Tubular adenoma of colon Peripheral vascular disease Surgical History H/O colonoscopy S/P ORIF (open reduction internal fixation) fracture History of hemorrhoidectomy Fracture of phalanx of right ring finger Ovarian tumor Right fibular fracture Family History Father FH: prostate cancer Skin cancer Colon cancer, Onset Age: 84 Atrial fibrillation Mother Social History Household Members: Significant Other Housing: House Are you a primary customer care voice consultant to a significant other at home: No Do you presently have visiting nurse or other home services: No Alcohol intake: current Alcohol intake frequency: holidays/special occasions only Comment: 1-2 x a week 2-3 drinks Patient Tobacco Use Status: Never used Tobacco Years Smoked: second hand smoke 14 years old did smoke 3 months e-Cigarette/Vaping Use: Never Used Second Hand Smoke Exposure: No service: No Current occupational status: employed and retired 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 Cognitive needs: No Hearing needs: No Vision needs: Yes (Glasses) Review of Systems Const Denies fatigue, Denies fever(s), Denies night sweats, Denies poor appetite and Denies weight loss ENT Reports Normal hearing present, Denies dental pain, Denies dysphagia, Denies hearing loss, Denies mouth pain, Denies odynophagia, Denies throat swelling, De nies tongue swelling and Reports other (Dentition adequate) Card Reports no additional complaints Resp Reports no additional complaints GI Details: Denies abdominal pain, Denies melena, Denies bloating, Reports hematochezia, Denies constipation, Reports GI cramping, Denies dysphagia, Denies excessive flatus, Denies early satiety, Denies heartburn, Denies diarrhea, Reports loose stools, Denies nausea, Denies odynophagia, Denies vomiting and Denies hematemesis Skin/Breast Denies pruritus, Denies lesions, Denies rash and Denies jaundice Neuro Reports Normal hearing present and Denies Abnormal speech present Endo Denies fatigue Aller/Immun Denies throat swelling and Denies tongue swelling Physical Exam Vital Signs: Last Vital Signs Pulse 73 08/14/24 12:21 BP 129/58 L 08/14/24 12:21 BMI result Body Mass Index 30.7 Const General: cooperative, no acute distress, well developed and well groomed Nutritional Appearance: well nourished and obese Orientation/consciousness: oriented to person, oriented to place and oriented to time Limitations: No language barrier HEENT Head: Yes normocephalic and Yes atraumatic Eyes General: appearance normal, both eyes and all related structures Pupils: Equal, round and reactive pupils present Neck Neck: Yes normal visual inspection and Yes no lymphadenopathy Thyroid: Thyroid normal Resp Effort & Inspection: normal respiratory effort and able to speak in complete sentences Auscultation: clear to auscultation bilaterally Cardio Rate: regular rate Rhythm: regular rhythm Heart sounds: Normal, physiologic split S2 sound present Peripheral pulses: radial pulses present and posterior tibial pulses present GI Inspection: No distended, No Abdominal panniculus present and Yes obesity Palpation (GI): Soft to palpation, nontender, no guarding, not rigid and No hepatosplenomegaly present Percussion: Yes normal to percussion Auscultation: normal bowel sounds Rectal Exam - Female: deferred Skin General skin exam: no rashes or lesions noted, turgor normal, skin not dry, no jaundice, No spider nevi and no striae Rashes: no rashes Nails: normal Neuro General: oriented to person, oriented to place and oriented to time Cranial nerves: Yes Equal, round and reactive pupils present and Yes Normal hearing present Speech: No Abnormal speech present Extrem General: Yes normal to inspection, No clubbing, No cyanosis and No edema Psych Appearance: grossly normal and well kempt Mental Status: mental status grossly normal Speech and movement: Normal speech and movement present Affect: normal affect Attitude: cooperative Thought process: Normal thought process present and not confabulating Thought content: Normal thought content present Insight: Fair insight present (Psych) Judgement: Fair judgement present (Psych) Results Reviewed Results Reviewed: Laboratory Tests 07/26/24 09:11 WBC 7.4 Hgb 12.4 Hct 35.8 L MCV 92.0 MCH 31.9 Plt Count 153 L Estimated GFR > 60 Total Bilirubin 1.1 H AST 26 ALT 17 Alkaline Phosphatase 74 TSH 2.82 Free T4 0.96 COLONOSCOPY 08/01/24 Findings: Mucosa: Normal to cecum and terminal ileum. Protruding lesions: * 1 sessile polyp of size 6 mm in transverse colon. Cold snare polypectomy was performed. The polyp was completely removed and retrieved. * 1 sessile polyp of size 3 mm in rectum. Cold snare polypectomy was performed. The polyp was completely removed and retrieved. * Medium internal hemorrhoids without stigmata of recent bleeding. Excavated lesions: * Mild diverticulosis of sigmoid colon. Impression: 1. Normal colon mucosa 2. Total of 2 polyps removed 3. Diverticulosis 4. Internal hemorrhoids Recommendations: - Follow path results. - Repeat colo in 5 years if both polyps are adenoma, otherwise 7 years (can revert to average screening intervals since father was diagnosed with CRC at age >60. ) BISOPY Received: 08/01/24 Diagnosis A. Colon, transverse, polypectomy: Tubular adenoma; negative for high-grade dysplasia. B. Rectum, polypectomy: Hyperplastic polyp. Assessment & Plan Assessment & Plan (1) Tubular adenoma of colon: Comment: 2023 scope= 1 TA repeat in 5 years; 2019 scope-Marcus= TA repeat in 5 years Code(s): D12.6 - Benign neoplasm of colon, unspecified Category: Medical (2) Other irritable bowel syndrome: Code(s): K58.8 - Other irritable bowel syndrome Category: Medical Plan She had RB in the TT after the scope (likely rectal polyp). She also has not returned to normal BM's since, pudding like and thin. Also stitch in LLQ. Start metamucil bid and rov 6-8 weeks. She is quite agreeable to a 5 year follow-up. The procedure was well tolerated. The results were explained and the patient is agreeable to the follow-up interval as stated. Education was provided to tell any 1st degree relatives about their findings to be sure that they are screened by age 45. Educated that they will be put on a recall list when it is time for their repeat scope but should they move out of state or away from the hospital they will need to remember along with their primary to repeat the procedure in a timely fashion to avoid any adverse complications. Coding Level of Care Code Est Pt Level 4 (49725) Diagnoses Tubular adenoma of colon D12.6 Other irritable bowel syndrome K58.8
[2024-08-14 12:21] VITALS: BP 129/58; PULSE 73; BMI 30.7
== END 2024-08-14 12:55 | disposition home or self-care (01) ==
PROVIDERS: PCP Internal Medicine; Visit Provider Nurse Practitioner
DX: D12.6 Benign neoplasm of colon, unspecified (principal); K58.8 Other irritable bowel syndrome
CPT/HCPCS: 99214

== ENCOUNTER → 2024-08-14 11:37 | Outpatient (BNVA) | payer MEDICARE, BC, SELFPAY | PROVIDERS: PCP Internal Medicine; Visit Provider Nurse Practitioner | DX: D12.6 Benign neoplasm of colon, unspecified (principal); K58.8 Other irritable bowel syndrome | CPT/HCPCS: 99212 ==

== ENCOUNTER 2024-10-08 09:17 | Outpatient (REF) | payer MEDICARE, BC, SELFPAY ==
--- NOTE | ~2024-10-08 | US_ITS ---
EXAMINATION: US ABDOMEN COMPLETE CLINICAL INFORMATION: Elevated ferritin level. Question splenomegaly.. COMPARISON: None available. TECHNIQUE: Real-time imaging of the abdominal viscera. FINDINGS: PANCREAS: Visualized portions are unremarkable. ABDOMINAL AORTA: The proximal, mid, and distal segments are normal in caliber. INFERIOR VENA CAVA: Visualized portions are normal. LIVER: The liver is normal in size. The liver contour is normal. Parenchymal echogenicity is increased. No focal hepatic lesion. There is no intrahepatic biliary duct dilatation seen. GALLBLADDER: The gallbladder is physiologically distended without evidence of stones, sludge, wall thickening or pericholecystic fluid. There is a small nonmobile echogenic polyp along the posterior gallbladder wall measuring 0.29 x 0.21 x 0.30 cm. COMMON BILE DUCT: Normal in caliber measuring 0.16 cm in diameter. RIGHT KIDNEY: No hydronephrosis. No renal calculi or focal parenchymal lesions. There is mild increased echogenicity. The kidney measures 11.3 cm in maximum dimension. LEFT KIDNEY: No hydronephrosis. No renal calculi visualized. There are anechoic parapelvic cysts. The largest lower pole cyst measures 2.7 x 1.2 x 1.6 cm. There is mild increased echogenicity. The kidney measures 11.3 cm in maximum dimension. SPLEEN: The spleen measures 14.1 cm in maximum dimension. FREE FLUID:None.. US/US abdomen complete IMPRESSION: Bilateral increased echogenic kidneys without caliectasis or hydronephrosis. There is a left parapelvic renal cysts largest measuring 2.7 x 1.2 x 1.6 cm in lower pole. Diffusely echogenic liver without focal lesion. Small gallbladder polyp. No echogenic stones. Electronically signed by: Samir Lazo MD 10/08/2024 10:43 AM EST
== END 2024-10-08 09:18 | disposition home or self-care (01) ==
LOC: HO.HMGCX 09:17
PROVIDERS: PCP Internal Medicine; Visit Provider Internal Medicine
DX: R79.89 Other specified abnormal findings of blood chemistry (principal)
CPT/HCPCS: 76700

== ENCOUNTER → 2024-10-08 09:21 | Outpatient (BNV) | payer MEDICARE, BC, SELFPAY | PROVIDERS: PCP Internal Medicine; Visit Provider Radiology Diagnostic Radiology | DX: K76.89 Other specified diseases of liver (principal); K82.4 Cholesterolosis of gallbladder; R93.421 Abnormal radiologic findings on diagnostic imaging of right kidney; R93.422 Abnormal radiologic findings on diagnostic imaging of left kidney; N28.1 Cyst of kidney, acquired | CPT/HCPCS: 76700 ==

== ENCOUNTER 2024-11-07 13:29 | Outpatient (AMB) | payer MEDICARE, BC, SELFPAY ==
--- NOTE | 2024-11-07 13:39 | MHC.PC.OV ---
Vital Signs 11/07/24 13:40 Height 5 ft 7 in Weight 195 lb 2 oz BMI 30.6 BP 120/78 Blood Pressure Location Lt brachial Position Sitting Pulse 63 Pulse Source Pulse Oximeter Temp 97.1 F Temp Source Temporal Artery Scan Pulse Oximetry (%) 98 Oxygen Delivery Method Room Air Intake Visit Reasons: Right Knee Pain Intake Note: Patient is here to follow up on Right knee pain. 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: No Senior Sql Server Developer: Not Required per policy Accompanied by: Self / Same As Patient Allergies No Known Drug Allergies Allergy (Unknown, Verified 11/07/24 13:40) none Tobacco use date assessed: 11/07/24 Fall risk assessment: No Falls in past year Last assessed Fall Risk: 11/07/24 Dental Screening Dental Screen Date: 11/07/24 Did you have a dental visit in the last 12 months?: No Did you have a dental problem in the last 6 months where you did not have access to dental care?: No Was dental information given to patient?: No HPI Right Knee Pain HPI Details 64 year old female with past medical history of anemia, eczema, impaired glucose tolerance, peripheral vascular disease, obesity last seen 12/2023 coming in for acute problem.?In review of the notes, patient was seen by Hematology/Oncology 10/03/2024 ordered for ultrasound to evaluate for splenomegaly as well as blood work and advised to follow up in 6 weeks. Patient was seen by Gastroenterology 07/2024 planning for repeat colonoscopy and sent for labs. Presenting with right knee pain. She reports the pain has persisted for a month, with episodes of the knee giving out while descending stairs, localizing beneath the kneecap, and exacerbated by lateral movements. Denies any falls or inciting events. 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 Pain intensity has been described as moderate, reaching a 3 to 4 out of 10. Clinical symptoms include knee clicking, particularly when transitioning from sitting to standing. [facility] Medical History Family history of colon cancer in father Left hip pain Pain in sacrum Annual physical exam Cervical cancer screening Fibroepithelial polyp Pre-op examination Hx of fracture of pelvis Cough SOB (shortness of breath) on exertion Obesity (BMI 30-39.9) Overweight (BMI 25.0-29.9) Right arm fracture Melanoma of lip Osteopenia Tubular adenoma of colon Peripheral vascular disease Surgical History H/O colonoscopy S/P ORIF (open reduction internal fixation) fracture History of hemorrhoidectomy Fracture of phalanx of right ring finger Ovarian tumor Right fibular fracture Family History Father FH: prostate cancer Skin cancer Colon cancer, Onset Age: 84 Atrial fibrillation Mother Social History Household Members: Significant Other Housing: House Are you a primary point of care specialist to a significant other at home: No Do you presently have visiting nurse or other home services: No Alcohol intake: current Alcohol intake frequency: holidays/special occasions only Comment: 1-2 x a week 2-3 drinks Patient Tobacco Use Status: Never used Tobacco Years Smoked: second hand smoke 14 years old did smoke 3 months e-Cigarette/Vaping Use: Never Used Second Hand Smoke Exposure: No service: No Current occupational status: employed and retired 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 1. Little interest or pleasure in doing things: not at all 2. Feeling down, depressed, or hopeless: not at all 3. Trouble falling or staying asleep, or sleeping too much: not at all 4. Feeling tired or having little energy: not at all 5. Poor appetite or overeating: not at all 6. Feeling bad about yourself - or that you are a failure or have let yourself or your family down: not at all 7. Trouble concentrating on things, such as reading the newspaper or watching television: not at all 8. Moving or speaking so slowly that other people could have noticed. Or the opposite - being so fidgety or restless that you have been moving around a lot more than usual: not at all 9. Thoughts that you would be better off or of hurting yourself in some way: not at all Total score: 0 Depression Screening Interpretation: Negative Depression Screening Done: Yes Source: Developed by Drs. Mitchell Zapata, Tejal Moreno, Agapito Umanzor and colleagues, with an educational ailyn from [employer]. Thrive Questionnaire Date Thrive assessed: 11/07/24 I am a: Patient What is your living situation today?: I have a steady place to live Within the past 12 months, did the food you bought not last and you didn't have the money to get more?: Never true Within the past 12 months, did you worry whether your food would run out before you got money to buy more?: Never true Do you have trouble paying for medicines?: No Do you have trouble getting transportation to medical appointments?: No Do you have trouble paying your heating and electricity bill?: No Do you have trouble taking care of your child, family member or friend?: No Do you have trouble with day-to-day activities such as bathing, preparing meals, shopping, managing finances, etc.?: No Are you currently unemployed and looking for a job?: No Are you interested in more education?: No Please select the resources that you would like help with: None Currently or been in a relationship where the following occur: No concerns reported THRIVE Score: 0 AUDIT C Alcohol Use Questionnaire (AUDIT-C) 2. How many drinks containing alcohol do you have on a typical day when you are drinking?: 3 or 4 3. How often do you have six or more drinks on one occasion?: Less than monthly Total Score: 2 JEFFREY-7 AMB Questionnaire JEFFREY-7 Date JEFFREY - 7 assessed: 11/07/24 Feeling nervous, anxious, or on edge: 0 = Not at all Not being able to stop or control worryin = Not at all Worrying too much about different things: 0 = Not at all Trouble relaxin = Not at all Being so restless that it is hard to sit still: 0 = Not at all Becoming easily annoyed or irritable: 0 = Not at all Feeling afraid as if something awful might happen: 0 = Not at all Total JEFFREY-7 score (0-4 normal; 5-9 mild; 10-14 moderate; 15-21 severe): 0 Source: Developed by Tejal Yang Kurt Kroenke and colleagues, with an educational ailyn from [employer]. Review of Systems Const Denies body aches, Denies chills, Denies fever(s) and Denies poor appetite Eyes Reports no additional complaints ENT Reports no additional complaints Card Denies chest pain, Denies syncope, Denies lightheadedness and Denies dyspnea Resp Denies dyspnea GI Reports no additional complaints Reports no additional complaints Musc Details: Right knee pain Reports abnormal gait Skin/Breast Reports system reviewed and no additional complaints, except as documented Neuro Reports abnormal gait and Denies syncope Psych Reports no additional complaints Physical exam (Primary Care) Vital Signs: Last Vital Signs Temp 97.1 F 11/07/24 13:40 Pulse 63 11/07/24 13:40 BP 120/78 11/07/24 13:40 Pulse Ox 98 11/07/24 13:40 Oxygen Delivery Method Room Air 11/07/24 13:40 BMI result Body Mass Index 30.6 Tobacco/Smoking Status: Tobacco use Status Tobacco use date assessed 11/07/24 11/07/24 13:41 Patient Tobacco Use Status Never used Tobacco 11/07/24 13:41 e-Cigarette/Vaping Use Never Used 11/07/24 13:41 PHQ-9: PHQ-9 Score PHQ-9: Total score 0 11/07/24 13:41 Depression Screening Interpretation: Negative Thrive Assessment: Date of Thrive Assessment Date Thrive assessed 11/07/24 11/07/24 13:41 Currently or been in a relationship where the following occur: No concerns reported Const General: cooperative, healthy appearing, comfortable and no acute distress Orientation/consciousness: patient oriented x3 [facility] Head: Yes normocephalic Ears: hearing grossly normal bilaterally General nose exam: Normal external nose present Eyes General: appearance normal, both eyes and all related structures Conjunctivae: conjunctivae normal Neck Neck: Yes full ROM and Yes no lymphadenopathy Resp Effort & Inspection: normal respiratory effort Auscultation: clear to auscultation bilaterally, no crackles, no rales, no rhonchi and no wheezes Cardio Rate: regular rate Rhythm: regular rhythm Skin General skin exam: no rashes or lesions noted Neuro General: patient oriented x3 Gait exam (Neuro): Normal gait present Extrem Other: Pain to palpation over lateral joint line of right knee, positive crepitus in the right knee without swelling or redness. Normal palpation and mild crepitus in the left knee. General: Yes normal to inspection, Yes full ROM and No edema Psych Affect: normal affect Attitude: cooperative Insight: Good insight present (Psych) Judgement: Good judgement present (Psych) Coding Level of Care Code Est Pt Level 3 (09430) Diagnoses Right knee pain M25.561 Assessment & Plan Assessment & Plan (1) Right knee pain: Code(s): M25.561 - Pain in right knee Category: Medical Plan: The management plan includes initiating physical therapy to strengthen the muscles supporting the right knee, performing an x-ray to evaluate the extent of underlying osteoarthritis, and considering an orthopedic consultation based on x-ray findings. The patient may use a knee brace or sleeve for comfort during activities, avoiding injections or surgery at this time unless pain management becomes necessary. Advised may use diclofenac gel as needed for pain. Plan Patient was informed and verbally consented to the use of an ambient scribe for clinic note documentation during this visit. This note was constructed using voice recognition software. While every effort has been made to ensure accuracy and dinner cook, still areas may have been included sometimes these areas may affect the content or meeting of the given symptoms. Total time spent caring for the patient today was 20 minutes. This includes time spent before the visit reviewing the chart, time spent during the visit, and time spent after the visit and documentation. Orders: Orders XR knee RT 2V Today M25.561 - Pain in right knee PT Evaluation and Treatment Today M25.561 - Pain in right knee
[2024-11-07 13:40] VITALS: BP 120/78; PULSE 63; TEMP 36.2; O2SAT 98; BMI 30.6
--- OUTSIDE RECORDS SUMMARY | 2024-11-07 14:27 | XMS_ITS ---
Author Organization [facility] [place] Address [address] [place] [address] Care Team Providers Care Tool And Die Maker/Designer Name Role Phone Royal Mendoza Primary Care Provider Michelle August Unavailable [phone] Allergies No Known Allergies REASON FOR VISIT pt states last pcp visit 12/2022, Foot pain, Painful Toe(s), Skin Problem Medications Medication SIG (Take, Route, Fr equency, Duration) Notes Start Date End Date Status Multivitamin Active Zinc Not-Taking Vitamin C Active Vitamin D3 Active Social History Tobacco Use: Social History Observation Description Date Details (start date - stop date) Former Smoker NA - NA Tobacco Use/Smoking Question Answer Notes Are you a: former smoker Additional Findings: Tobacco Non-User Current no n-smoker Alcohol Screen Question Answer Notes Did you have a drink containing alcohol in the p ast year? Yes Points 0 Interpretation Negative Tobacco use other than smoking: Question Answer Notes Are you an other tobacco user? 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.2 and Closed nondisplaced fracture of proximal phalanx of lesser toe of left foot, initial encounter S92.515A Assessments Encounter Date Diagnosis (ICD Code) Assessment Notes Treatment Notes Treatment Clinical Notes Section Notes 06/29/2023 Hallux valgus (acquired), left foot (ICD-10 - M20.12) 06/29/2023 Plantar fascial fibromatosis of left foot (ICD-10 - M72.2) 06/29/2023 Closed nondisplaced fracture of proximal phalanx of lesser toe of left foot, initial encounter (ICD-10 - S92.515A) Plan Of Treatment Pending Test Test Name Order Date X ray : Foot, left 3V 06/29/2023 Next Appt Details Follow Up: prn, Reason: Progress Notes * Kenna PLASENCIAFabyB:1960 (63 yo F)Acc No.[id number]:06/29/2023 Progress Note Patient:?Fatmata Plasencia Provider:?Michelle Ramos DPM :1960???Age:63 Y???Sex:Female D ate:06/29/2023 Address:[address] [place], [place] [id number] Pcp:Royal Mendoza Subjective: * Chief Complaints: * ???Pt states last pcp visit 12/2022Foot painPainful Toe(s)Skin Problem * HPI: ???Foot Pain:?Location:?Inside, Great toe joint, LEFT.?Duration:?several months.?Course:?worse.?Aggrevated:?any pressure.?Treatments:?rest , change in shoes.?Toe pain:?Nature:?aching, bruising, discoloration, swelling, tenderness, throbbing.?Location:?Left foot , 4th toe.?Duration:?since DOI ( 06/08/23 ).?Onset/Cause:?states traumatic ( stubbed toe on dog toy?).?Aggrevated by:?any pressure , shoes , standing/walking.?Treatments:?rest, ice.?Skin problems:?Nature:?Lump, tender.?Location:?Bottom , Arch , Left.?Course:?worse.?Aggravated by:?any pressure , standing , walking.?Treatments:?rest.? * ROS:?General/Constitutional:?Nausea?denies.?Vomiting?denies.?Hunger Thirst?denies.?Loss appetite?denies.?Chills?denies.?Fatigue?denies.?Fever?denies.?Night Sweats?denies.?Unexplained weight loss?denies.?Unexplained weight gain?denies.?HEENTM:?Dentures?denies.?Dizziness?denies.?Glasses/contacts?admits.?Retinopathy?de nies.?Blurred/double vision?denies.?TMJ?denies.?Discharge/drainage?denies.?Implants?denies.?Sore throat?denies.?Dental implants?admits.?Hard of hearing ?denies.?Difficulty chewing/swallowing/speaking?denies.?Nose bleeds?denies.?Sore mouth?denies.?Respiratory:?On Oxygen?denies.?Pneumonia/pleurisy?denies.?Bronchitis?denies.?Emphysema?denies.?C oughing?denies.?Cough blood?denies.?Shortness of breath?denies.?Wheezing?denies.?Cardiovascular:?Pacemaker?denies.?MVP?denies.?WPW?denies.?CHF?denies.?Heart attack?denies.?Septal defect?denies.?Rapid beat?denies.?Chest pain ?denies.?Atrial Fib.?denies.?Murmur/Palpitations?denies.?Gastrointestinal:?Hemorrhoids?denies.?Stomach/Abdominal pain?denies.?Dark blood stool?denies.?Irritable bowel ?denies.?Constipation?denies.?Diarrhea?denies.?Hematology:?Swelling?denies.?Clots?denies.?Varicose Veins?admits.?Bruising?denies.?Bleeding problem?denies.?Genitourinary:?Blood urine?denies.?Frequent/Painfu/urination/bladder control?denies.?Kidney stones?denies.?Infection (UTI)?denies.?Nephropathy?denies.?sex trans dis (STD)?admits.?Prostate?denies.?Musculoskeletal:?Hammertoes?denies.?Bunions?denies.?Back Pain?denies.?Muscle Cramps/ Resting?denies.?Muscle cramps / walking?denies.?Generalized aches and pains?denies.?Weakness?denies.?Integ.:?Martinez?denies.?Scars?admits.?Corns/calluses?denies.?Ingrown nails?denies.?Painful nails?denies.?Open Sores?denies.?Rashes?denies.?Neurologic:?Difficulty sleeping?denies.?Brain disorder?denies.?Numbness?denies.?Balance trouble?denies.?Confusion?denies.?Fainting/blackouts?denies.?Tingling?denies.?Tr emors?denies.? * Medical History:? * Surgical History:?Benign Jarrod or ovary 1990wrist surgery 2017skin nm collar bone area 12/2020 * Hospitalization/Major Diagno stic Procedure:?No Hospitalization History. * Family History:?Mother: dece ased, arthritis, stroke, high blood pressure.?Father: , colon cancer, skin cancer, prostate cancer, heart attack - afib, poor circulation, high blood pressure.? * Social History:?Tobacco Use:?Tobacco Use/Smoking?Are you a:?former smoker ?Additional Findings: Tobacco Non-User?Current non-smoker ?Tobacco use other than smoking?Are you an other tobacco user??No ???Drugs/Alcohol:?Drugs?Have you used drugs other than those for medical reasons in the past 12 months??No ?Alcohol Screen?Did you have a drink containing alcohol in the past year??Yes ?Points?0 ?Interpretation?Negative ???Miscellaneous:?Caffeine: yes, frequency:,, 1-2 cups per day. ?no Children. ?Exercise: yes, horseback riding. ?Marital status: . 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 * Medications:?TakingVitamin C Vitamin D3 Multivitamin Taking Vitamin C Taking Vitamin D3 Taking Multivitamin Not-Taking/PRNZinc Medication List reviewed and reconciled with the patientNot-Taking/PRN Zinc Medication List reviewed and reconciled with the patient * Allergies:?N.K.D.A.yes[Aller gies Verified] Objective: * Vitals:?Ht: 5 ft 7 in, Wt: 1 81 lb 4 oz, BMI:28.38, Shoe size: 10-10.5. * Examination: ???General Examination: ?GENERAL APPEARANCE:?Reveals a pleasant, alert, well-nourished, well- developed, well hydrated individual, who demonstrates proper attention to hygiene/body habitus, and is in no acute distress, Pt serves as own?historian for office visit today.?ORIENTED:?person, place, and time.?Neurological: ?SENSORY:?Neurological exam reveals intact sensorium, pain sensation normal, vibration sensation intact, pinprick sensation is normal in the lower extremities, Pt denies, anesthesia, burning, paresthesia, tingling, B/L.?TINEL'S COMPRESSION:? Negative, Saphenous nerve distribution.?DEEP TENDON REFLEXES:?Achilles, 2/4, B/L.?Vascular: ?DP PULSES:?3/4, B/L.?PT PULSES:?3/4, B/L.?CAPILLARY FILL TIME:?immediate, all digits, B/L.?SKIN TEMPERTURE GRADIENT OF THE LOWER EXTERMITIES:?warm to cool, proximal to distal, B/L.?HAIR GROWTH/TEXTURE/ELASTICITY/TURGOR:?normal, B/L.?PIGMENTATION:?normal, B/L.?EDEMA:?absent, B/L.?Dermatologic: ?SKIN FINDINGS:?Skin exam reveals normal texture, elasticity, and turgor. he interspaces are clear , Skin shows sign(s) of, a semi-firm, painful, non- translucent, non-pulsatile, nonmobile Sub Fascial tumor derrick. 20 mm, Plantar, Midfoot LEFT.?Orthopedic: ?MUSCLE STRENGTH:?5/5 all groups in a symmetrical fashion , B/L.?BUNION:? Medially prominent 1st MPJ,(+) Pain on palpation,inflammation present medially,Lateral tracking 1st MPJ incompletely reducible, LEFT, LEFT.?DIGITAL DEFORMITIES:? Reveals pain to palpation, swelling 4th toe left foot.?X-Rays - IMAGING REPORT: ?Clinical Indication(s):? Evaluate Biomechanical Deformity , Evaluate for Fracture.?Views:? 3 views of Foot, AP, LAT, MO, LEFT , 3 views of Foot, AP, LO, MO, LEFT.?Findings:?normal bone and soft tissue density consistent for patients age and sex?.?HAV:? increased First Intermetatarsal angle?and Hallux Abductus angle consistent with Bunion deformity noted,?hypertrophy of the dorsal and medial 1st MTH without subchondral cyst.?Fracture:?Sign of fracture identified , complete , nondisplaced with good end to end apposition , intra-articular extending into joint margin , oblique fracture , head of , proximal phalange , T3.? Assessment: * Assessment: 1.?Hallux valgus (acquired), left foot - M20.12 (Primary), Acute problem, Complicated w/ Multiple Tx Options(4)?2.?Plantar fascial fibromatosis of left foot - M72.2?3.?Closed nondisplaced fracture of proximal phalanx of lesser toe of left foot, initial encounter - S92.515A? Plan: * Treatment: * Imaging:? * ?Imaging: X ray : Foot, left 3V * Procedure Codes:?13620 X-RAY EXAM OF LEFT FOOT 3V, Modifiers: 26 , LT * Preventive Medicine:? ??Counseling:?Discussion:?-14: Office or other outpatient visit for the evaluation and management of an established patient, which required a medically appropriate history and/or examination and MODERATE level of DECISION MAKING for: 1 OR MORE CHRONIC PROBLEM(S) THATS WORSENING, 2 STABLE CHRONIC PROBLEMS, A NEWLY DIAGNOSED PROBLEM WITH UNCERTAIN PROGNOSIS, AN ACUTE COMPLICATED INJURY WITH MULTIPLE TREATMENT OPTIONS, OR AN ACUTE PROBLEM WITH ACCOMPANYING SYSTEMIC SYMPTOMS, THAT POSE(S) A MODERATE RISK OF MORBIDITY. THIS CONDITION MAY ALSO INCLUDE RX DRUG MANAGEMENT, OR A DECISON FOR MINOR SURGERY. The visit on the day of the encounter encompassed interpreting the data and educating the patient as to the nature of their condition, treatment options available according to their individual PMH, meds, allergies, and overall health/living conditions, as well as any potential risks or complications that may occur from a failure to adhere to, and participate in, the recommended course of therapy. The discussion included a complete verbal, and/or written explanation of the examination results, any x-rays taken, the proposed diagnosis, and outline of the treatment plan. A schedule for future care needs was also explained. The patient verbalized an understanding of the instructions at this time and agreed to be an active participant in their treatment. If the patient should think of any questions or concerns after the visit, I have encouraged the patient to call the office.?Digital Treatment:?HV - I explained to the patient the risks/benefits of all the different treatment options for their pain including: No treatment at all, Rest, Ice, New/supportive/wider/deeper Shoegear, Digital Padding/Strapping/Taping/Bracing/Gel protective sleeves, Foot/Ankle AFO Bracing, Stretching exercises, Deep Tissue Massage, Arch support/shoe inserts with splay metatarsal padding, and Custom orthoses. I insisted that any digital devices be removed daily and not worn overnight for safety. The patient is to carefully examine the toes daily for any skin irritation while using any splinting or padding device. The advantages and disadvantages of each option were discussed and the patients questions re: shoegear, padding, custom vs prefabricated inserts, activity level, and consistency in home treatment regimens for optimal success were answered to their verbally confirmed satisfaction.?Discussion for Bunion sx:?Pt defers on any surgical intervention at this time and would like to try conservative treatment, Recomm, rest, ice, proper shoegear, padding, orthotics, anti-inflammatories or tylenol as tolerated, topical analgesics, cortisone injections, Discussed and reviewed the X-rays with the patient. We discussed how the findings relate to the patients symptoms/complaints. Answered any and all questions..?Fibromas:?The patient was counseled on the diagnosis, potential etiologies, and treatment options for their Fibroma condition. We discussed the risks and benefits of each option from performing no treatment, to utilizing OTC topical skin creams/ointments, to utilizing prescription topical creams/ointments such as Verapamil, to utilizing customized compounded topical medications, change in shoes, pressure accomidative innersoles, padding, deep tissue massage, injections of cortisone, sclerosis injections, EPAT/ESWT, as well as Surgical excision. We discussed the advantages and disadvantages of each possible treatment and importance for adherence to all the recommended therapies for optimum success and avoid potential complications such as open sore/infection/possible hospitalization. We discussed the potential effectiveness of each topical preparation as well as each ones possible side effects and/or patient medication interactions. We discussed the procedure for surgical removal, its potential benefits, the anesthesia, post-op recuperation and need for complete NWB/Crutches/Walker for at least a month, and possible complications such as failure, nerve damage resulting in permanent numbness, infection, scarring, and recurrence. Patient questions re: use, dosage, successful outcomes, application consistency, and surgical treatment were reviewed and the patient verbalized that all answers were clearly understood.?Orthotics:?I explained to the patient the benefits of OT use. I explained that orthoses are medically necessary to decrease the foot pain through proper mechanical control, support of their foot, cushion the forefoot by supplementing the soft tissue, possibly delay of the progression of the bunion deformity, possibly prevent surgery, I explained to the patient the benefits of OT use. I explained that orthoses are medically necessary to decrease the foot pain through proper mechanical control, cushion the foot by accomidating the soft tissue.?P.R.I.C.E.:?The patient was counseled on the use of P.R.I.C.E. and NSAIDS (if well tolerated) to aid in the recovery from their painful condition , Recommended Topical analgesics including Biofreeze/Aspercream/Voltaren gel, The patient was counseled on the use of P.R.I.C.E. and NSAIDS (if well tolerated) to aid in the recovery from their painful condition , Recommended Topical analgesics including Aspercream/Biofreeze/Voltaren gel as directed.?Podiatric Surgery Counseling:?Surgical procedures to treat the patients foot problem were discussed. We reviewed the risks of the procedure (described below) vs not having the procedure (persistent pain, deformity, risk for skin ulceration/infection, loss of toe). We discussed the potential procedure complications including, but not limited to: pain, swelling, bleeding, scarring, numbness, infection, delayed/non healing, floppy/unstable/shorthened toe, recurrence, failure of the procedure, overcorrection leading to plantarflexed/downward positioned toe, recurrence, need for further surgery, as well as the possibility for loss of the toe itself. We discussed the use of IV/Local anesthesia, and the usual post-op course for healing. No guarentees were given. The patient verbally indicated a full understanding of the above conversation, and any other of their questions were answered to their satisfaction.?Shoe Gear Counseling:?The patient and I reviewed the types of shoes they should be wearing. My recommendation included obtaining a well-fitted shoe with a good supportive, non-foldable nor twistable sole, plenty of toe/room for the forefoot, and proper arch support. Based on todays examination, I recommended the patient look for new shoes, by having their feet professionally measured. We discussed that generally the best time of the day for a shoe fitting is the afternoon. Different shoes types and brands to best match the patients occupation and vocation were discussed. Specific brand selection will be up to the patient, their individual foot condition/deformities, and fit. The patient and I reviewed the standard new shoe break in period by wearing them for a few hours a day while checking for redness or sores as wear time is increased. The patient verbally confirmed to understanding the information discussed.?X-rays:?Discussed and reviewed the X-rays with the patient. We discussed how the findings relate to the patients symptoms/complaints. Answered any and all questions..? * Follow Up:?prn * Images: * Sign off status: Completed true * Provider:?Michelle Ramos DPM Date:?08/2023 Generated for Sara Jordan/Laureano on:?11/07/2024 02:27 PM EST History and Physical Notes * HPI (History of Present Illness) Category Sub-Category Detail Notes Category Not es Toe pain Nature: aching, bruising , discoloration, swelling, tenderness, throbbing Location: Left foot , 4th toe Duration: since DOI ( 06/08/23 ) Onset/Cause: states traumatic ( s tubbed toe on dog toy ) Aggravated by: any pressure , shoes , standing/walking Treatments: rest, ice Skin problems Nature: Lump, tender Location: Bottom , Arch , Left Course: worse Aggravated by: any pressure , stand ing , walking Treatments: rest Foot Pain Location: Inside, Great toe joint, LEF T Duration: several months Course: worse Aggravated: any pressure Treatments: rest , change in davina es Examination Category Sub-Category Detail Notes Category Not es Neurological SENSORY: Neurological exa m reveals intact sensorium, pain sensation normal, vibration sensation intact, pinprick sensation is normal in the lower extremities, Pt denies, anesthesia, burning, paresthesia, tingling, B/L TINEL'S COMPRESSION: Negative, Saphenous nerve distribution DEEP TENDON REFLEXES: Achilles, 2/4, B/L Dermatologic SKIN FINDINGS: Skin exam reveal s normal texture, elasticity, and turgor. he interspaces are clear , Skin shows sign(s) of, a semi-firm, painful, non-translucent, non-pulsatile, nonmobile Sub Fascial tumor derrick. 20 mm, Plantar, Midfoot LEFT Orthopedic BUNION: Medially promine nt 1st MPJ, (+) Pain on palpation, inflammation present medially, Lateral tracking 1st MPJ incompletely reducible, LEFT, LEFT DIGITAL DEFORMITIES: Reveals pain to pal pation, swelling 4th toe left foot MUSCLE STRENGTH: 5/5 all groups in a symmetrical fashion , B/L General Examination GENERAL APPEARANCE: Reveals a pleasant, alert, well- nourished, well-developed, well hydrated individual, who demonstrates proper attention to hygiene/body habitus, and is in no acute distress, Pt serves as own historian for office visit today ORIENTED: person, place, and t jeane Vascular DP PULSES (B): 3/4, B/L PT PULSES (B): 3/4, B/L CAPILLARY FILL TIME: immediate, all digi ts, B/L TEMPERTURE GRADIENT (C): warm to cool, p roximal to distal, B/L TROPHIC CONDITION-TEXTURE/ELASTICITY/TURGOR/HAIR GROWTH (B): normal, B/L EDEMA (C): absent, B/L PIGMENTATION: normal, B/L X-Rays - IMAGING REPORT Findings: normal b one and soft tissue density consistent for patients age and sex Fracture: Sign of fracture stevenson ntified , complete , nondisplaced with good end to end apposition , intra-articular extending into joint margin , oblique fracture , head of , proximal phalange , T3 HAV: increased First Inte rmetatarsal angle and Hallux Abductus angle consistent with Bunion deformity noted, hypertrophy of the dorsal and medial 1st MTH without subchondral cyst Views: 3 views of Foot, AP, LAT, MO, LEFT , 3 views of Foot, AP, LO, MO, LEFT Clinical Indication(s): Evaluate Biomech anical Deformity , Evaluate for Fracture
--- OUTSIDE RECORDS SUMMARY | 2024-11-07 14:27 | XMS_ITS ---
Author Organization [facility] Address [address] [place] [address] Care Team Providers Care Cherry Grower Name Role Phone Royal Mendoza Primary Care Provider Michelle August [phone] REASON FOR VISIT buy pedGextech Holdings sport red size 41 Encounters Encounter Location Date Provider Diagnosis [address] [address] 06/29/2023 Michelle Ramos Plan Of Treatment No Information Progress Notes * MAYA KennaFabyB:1960 (63 yo F)Acc No.[id number]:06/29/2023 Patient:?Fatmata Plasencia :1960???Age:63 Y???Sex:Female Address:[address] [place] [address], [address] * true * Date:? Generated for Printi timi/Milagros/eTransmitting on:?11/07/2024 02:27 PM EST
--- OUTSIDE RECORDS SUMMARY | 2024-11-07 14:27 | XMS_ITS | Patient Health Record ---
Author Organization [facility] [place] Address [address] [facility] [place] [address] Care Team Providers Care Materials Inspector Name Role Phone Royal Mendoza Primary Care Provider Michelle August Unavailable [phone] Allergies No Known Allergies Reason For Referral No Information Medications Medication SIG (Take, Route, Frequency, Duration) Notes Start Date End Date Status Multivitamin Active Hydrocortisone Butyrate 0.1 % APPLY 1-2 ML TO EACH FOOT TWICE DAILY AFTER COMPOUND for 29 Active Zinc Not-Taking Vitamin C Active Vitamin [...] Problem Status W/U Status Risk Notes Problem [id number] Hallux valgus (acquired), left foot (M20.12) Active confirmed Plan Of Treatment Pending Test Test Name Order Date X ray : Foot, left 3V 06/29/2023 X ray : Foot, right 3V 11/16/2020 [id number] TENDON SHEATH/LIGAMENT 0 12/21/2020 Insurance Providers Payer Name Payer Address Payer Phone Subscriber Number Group Number Insured Name Patient Relationship to Insured Coverage Start Date Coverage End Date [employer] [address] [place] [phone] [id number] Fatmata Plasencia Self - patient is the insured [facility] [address] [place] [address] [id number] Plasencia, Fatmata Self - patient is the insured Medical (General) History Medical History History ICD Code Broken bones Keloid/Thick Scar Measles Mumps Chicken pox Joint implants/screws skin cancer Surgical History Surgery Date(Month/Year) Benign Tumor ovary 1990 wrist surgery 2017 skin ca collar bone area 12/2020
--- OUTSIDE RECORDS SUMMARY | 2024-11-07 14:27 | XMS_ITS | Clinical Summary ---
Author Organization [facility] Address [address] [id number] Care Team Providers Care Marketing Agent Name Role Phone Unavailable Primary Care Provider Unavailabl e Allergies No known active allergies Medications Medication Sig Dispensed Refills Start Date End Date Status Multiple Vitamin (MULTIVITAMIN) capsule Take by mouth. 0 Active doxycycline monohydrate (MONODOX) 100 MG capsuleIndications:L yme disease Take 1 capsule (100 mg total) by mouth 2 (two) times a day. 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 Family History Medical History Relation Name Comments Heart disease Father Nephrolithiasis Father Skin cancer Father Dementia Mother Hypertension Mother Thyroid disease Mother Relation Name Status Comments Father Mother Social History Tobacco Use Types Packs/Day Years Used Date Smoking Tobacco: Never Smokeless Tobacco: Never Alcohol Use Standard Drinks/Week Comments Yes 5 (1 standard drink = 0.6 oz pur e alcohol) Sex and Gender Information Value Date Recorded Sex Assigned at Not on file Gender Identity Not on file Sexual Orientation Not on file Last Filed Vital Signs Vital Sign Reading Time Taken Comments Blood Pressure 114/88 03/18/2015 4:23 PM EDT Pulse 92 03/18/2015 4:23 PM EDT Temperature 37.8 ??C (100.1 ??F) 03/18/2015 4:23 PM E DT Respiratory Rate 16 03/18/2015 4:23 PM EDT Oxygen Saturation - - Inhaled Oxygen Concentration - - Weight 81.2 kg (179 lb) 03/18/2015 4:23 PM EDT Height 170.2 cm (5' 7 ) 03/18/2015 4:23 PM EDT Body Mass Index 28.04 03/18/2015 4:23 PM EDT Plan of Treatment Health Maintenance Due Date Last Done Comments Hepatitis C Screening 1960 COVID-19 Vaccine (#1) 1960 Depression Screening 1970 Preventative Health Evaluation 01/11/1976 DTap / Tdap / Td (1 - Tdap) 1977 Colon Cancer Screening (Colonoscopy) 2003 Breast Cancer Screening (Mammogram) 01/11/2008 Shingrix-Zoster Vaccine (1 of 2) 01/11/2008 Fall Risk Assessment 2023 Osteoporosis Screening (DEXA Scan) 2023 Pneumococcal Vaccine (1 of 1 - PCV) 2023 Influenza Vaccine (#1) 2024 RSV Adult > 60+ Yrs or Pregn ant (1 - 1-dose 75+ series) 2033 Hepatitis B Vaccines Aged Out No long er eligible based on patient's age to complete this topic RSV Ped < 20 months Aged Out No longe r eligible based on patient's age to complete this topic Fatmata Plasencia Personal/Family Self 1960 [address] [place] [address]
--- OUTSIDE RECORDS SUMMARY | 2024-11-07 14:28 | XMS_ITS | Data Portability ---
Author Organization [facility], [facility] Address [address] [place] [address] Assessment No assessment recorded. Plan of Treatment Reminders Order Date Submit Date Provider Last Modified By Organization Details Last Modified Time Details Appointments None record ed. Lab None record ed. Referral None record ed. Procedures None record ed. Surgeries None record ed. Imaging None record ed. Medication Orders None record ed. Patient TargetsNo targets recorded. Patient InstructionsNo instructions recorded. Reason for Referral None Reported. Problems Name Problem SNOMED Code Status Onset Date Resolution Date Notes Provider Name and Address Organization Details Recorded Time Closed fracture of one or more phalanges of hand 169359847 Completed 200708/07/2013 Not Available [facility] 3 02:03:56 Problem Notes None recorded. Medical Equipment None Reported. Vitals None Recorded Social History None recorded. Functional Status None recorded. Mental Status None recorded. Family History Nothing Reported. Medical History No medical history recorded. Gynecological HistoryNo gynecological history recorded. Obstetrics History GPAL:G 0 P 0 0 0 0 Past Encounters Encounter ID Performer Location Encounter Start Date Encounter Closed Date Diagnosis/Indication Diagnosis SNOMED-CT Code Diagnosis ICD10 Code Diagnosis Note [id number] Physical Therapy, [address] [place] [address] 02/26/2008 09:26:57 02/26/2008 09:27:15 [id number] Physical Therapy, [address] [place] [address] 03/03/2008 12:19:31 03/03/2008 12:19:53 [id number] Physical [facility], [address] [place] [address] 03/05/2008 12:27:54 03/05/2008 12:28:18 [id number] Physical [facility], [address] [place] [address] 03/10/2008 11:51:16 03/10/2008 11:51:38 [id number] Physical Therapy, [address] [address] 03/19/2008 11:51:11 03/19/2008 11:51:32 Health Concerns Section Related Observation LastModified by Organization Detai ls LastModified Time None Recorded Concern Status LastModified by Organization Details LastModified Time None Recorded Advance Directives Directive None Recorded Payers Encounter Date Sequence Insurance Name Policy Number Policy Hassan Covered Member ID Hassan Member ID Guarantor Name 02/26/2008 1 [facility] [employer] Fatmata A Plasencia [id number] Fatmata A Plasencia 03/03/2008 1 [facility] Fatmata A Plasencia [id number] Fatmata A Plasencia 03/05/2008 1 [facility] Fatmata A Plasencia [id number] Fatmata A Plasencia 03/10/2008 1 [facility] Fatmata A Plasencia [id number] Fatmata A Plasencia 03/19/2008 1 [facility] Fatmata A Plasencia [id number] Fatmata A Plasencia OBGyn Episode No OBEpisode recorded.
--- OUTSIDE RECORDS SUMMARY | 2024-11-07 14:28 | XMS_ITS ---
Author Organization [facility] Address [address] [place] [address] Care Team Providers Care Cyber Incident Responder Name Role Phone Royal Mendoza Primary Care Provider Michelle August [phone] REASON FOR VISIT buy coban Encounters Encounter Location Date Provider Diagnosis [facility] [address] [facility] [address] [place] [address] 06/29/2023 Michelle Ramos Plan Of Treatment No Information Progress Notes * MAYA KennaFabyB:1960 (63 yo F)Acc No.[id number]:06/29/2023 Patient:?Fatmata Plasencia :1960???Age:63 Y???Sex:Female Address:[address] [place] [address], [address] * true * Date:? Generated for Sara capellan/Milagros/eTransmitting on:?11/07/2024 02:27 PM EST
== END 2024-11-07 14:01 | disposition home or self-care (01) ==
PROVIDERS: PCP Internal Medicine
DX: M25.561 Pain in right knee (principal)

== ENCOUNTER → 2024-11-07 13:29 | Outpatient (BNVA) | payer MEDICARE, BC, SELFPAY | PROVIDERS: PCP Internal Medicine | DX: M25.561 Pain in right knee (principal) | CPT/HCPCS: 99212 ==

== ENCOUNTER 2024-11-08 10:28 | Outpatient (REF) | payer MEDICARE, BC, SELFPAY ==
--- NOTE | ~2024-11-08 | XR_ITS ---
EXAMINATION: XR KNEE, RIGHT CLINICAL INFORMATION: M25.561 - Pain in right knee COMPARISON: None available. TECHNIQUE: Two views of the right knee. FINDINGS: There is joint space narrowing involving the medial compartment with the articular surface sclerosis of the medial tibial plateau. Small superior and inferior posterior marginal osteophyte formation, patella. No gross suprapatellar bursa joint effusion. XR/XR knee RT 2V IMPRESSION: Medial compartment osteoarthrosis, mild to moderate. Electronically signed by: Jp Young MD 11/08/2024 10:50 AM BRYNN BLANCAS
--- OUTSIDE RECORDS SUMMARY | 2024-11-08 11:24 | XMS_ITS | Clinical Summary ---
Author Organization [facility] Address [address] [phone] Care Team Providers Care Boot Turner Name Role Phone Unavailable Primary Care Provider [...] Personal/Family Self 1960 [address] [place] [address]
--- OUTSIDE RECORDS SUMMARY | 2024-11-08 11:24 | XMS_ITS ---
Author Organization [facility] Address [address] [place] [address] Care Team Providers Care Battery Stacker Name Role Phone Royal Mendoza Primary Care Provider Michelle August [phone] REASON FOR VISIT buy pedCardioIns[employer] Technologies sport red size 41 Encounters Encounter Location Date Provider Diagnosis [address] [address] 06/29/2023 Michelle Ramos Plan Of Treatment No Information Progress Notes * MAYA KennaFabyB:1960 (63 yo F)Acc No.[id number]:06/29/2023 Patient:?Fatmata Plasencia :1960???Age:63 Y???Sex:Female Address:[address] [place] [address], [address] * true * Date:? Generated for Printi timi/Milagros/eTransmitting on:?11/08/2024 11:23 AM EST
--- OUTSIDE RECORDS SUMMARY | 2024-11-08 11:24 | XMS_ITS ---
Author Organization [facility] Address [address] [place] [address] Care Team Providers Care Division Leader Name Role Phone Royal Mednoza Primary Care Provider Michelle August Unavailable [phone] Allergies No Known Allergies REASON FOR VISIT [...] Problem Status W/U Status Risk Notes Problem [id number] Hallux valgus (acquired), left foot (M20.12) Active confirmed Vital Signs Height 5 ft 7 in in 06/29/2023 Weight 181 lb 4 oz lbs 06/29/2023 BMI 28.38 kg/m2 06/29/2023 Encounters Encounter Location Date Provider Diagnosis [facility] [address] 06/29/2023 Michelle Ramos Hallux valgus (acquired), left [...] Notes * Kenna PLASENCIAFabyB:1960 (63 yo F)Acc No.[id number]:06/29/2023 Progress Note Patient:?Fatmata Plasencia Provider:?Michelle Ramos DPM :1960???Age:63 Y???Sex:Female D ate:06/29/2023 Address:[address] [place], [place] [id number] Pcp:Royal Mendoza Subjective: * Chief Complaints: * [...] History:?Benign Jarrod or ovary 1990wrist surgery 2017skin ar collar bone area 12/2020 * Hospitalization/Major Diagno [...] ?Marital status: . 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 * Medications:?TakingVitamin C Vitamin D3 Multivitamin Taking [...] ray : Foot, left 3V * Procedure Codes:?14829 X-RAY EXAM OF LEFT FOOT 3V, Modifiers: [...] Ramos DPM Date:?08/2023 Generated for Sara Jordan/Laureano on:?11/08/2024 11:23 AM EST History and Physical Notes * HPI [...]
--- OUTSIDE RECORDS SUMMARY | 2024-11-08 11:24 | XMS_ITS | Patient Health Record ---
Author Organization [facility] Address [address] [facility] [place] [address] Care Team Providers Care Camp Attendant Name Role Phone Royal Mendoza Primary Care Provider Michelle August Unavailable [phone] Allergies No Known Allergies Reason For Referral [...] Problem Status W/U Status Risk Notes Problem [id number] Hallux valgus (acquired), left foot (M20.12) Active confirmed Plan Of Treatment Pending Test Test Name Order Date X ray : Foot, left 3V 06/29/2023 X ray : Foot, right 3V 11/16/2020 [id number] TENDON SHEATH/LIGAMENT 0 12/21/2020 Insurance Providers Payer Name Payer Address Payer Phone Subscriber Number Group Number Insured Name Patient Relationship to Insured Coverage Start Date Coverage End Date Medicare National [employer] [address] [place] [phone] [id number] Fatmata Plasencia Self - patient is the insured [facility] [address] [place] [address] [id number] Plasencia, Fatmata Self - patient is the insured Medical (General) History Medical History History ICD Code Broken bones Keloid/Thick Scar Measles Mumps Chicken pox Joint implants/screws skin cancer Surgical History Surgery Date(Month/Year) Benign Tumor ovary 1990 wrist surgery 2017 skin ca collar bone area 12/2020
--- OUTSIDE RECORDS SUMMARY | 2024-11-08 11:24 | XMS_ITS ---
Author Organization [facility] Address [address] [place] [address] Care Team Providers Care Human Geography Instructor Name Role Phone Royal Mendoza Primary Care Provider Michelle August [phone] REASON FOR VISIT buy coban Encounters Encounter Location Date Provider Diagnosis [facility] [address] [facility] [address] [place] [address] 06/29/2023 Michelle Ramos Plan Of Treatment No Information Progress Notes * MAYA KennaFabyB:1960 (63 yo F)Acc No.[id number]:06/29/2023 Patient:?Fatmata Plasencia :1960???Age:63 Y???Sex:Female Address:[address] [place] [address], [address] * true * Date:? Generated for Sara capellan/Milagros/eTransmitting on:?11/08/2024 11:24 AM EST
== END 2024-11-08 10:29 | disposition home or self-care (01) ==
LOC: HO.XRAY 10:28
PROVIDERS: PCP Internal Medicine
DX: M25.561 Pain in right knee (principal)
CPT/HCPCS: 73560

== ENCOUNTER → 2024-11-08 10:32 | Outpatient (BNV) | payer MEDICARE, BC, SELFPAY | PROVIDERS: PCP Internal Medicine; Visit Provider Radiology Diagnostic Radiology | DX: M17.11 Unilateral primary osteoarthritis, right knee (principal) | CPT/HCPCS: 73560 ==

== ENCOUNTER 2024-12-19 11:00 | Outpatient (RCR) | payer MEDICARE, BC, SELFPAY ==
--- NOTE | 2024-11-22 09:20 | MHC.PT.EP ---
[facility] [place] Office [place] Office [place] Office [address] [phone] F: [phone] F: [phone] F: [phone] F: [phone] Physical Therapy Plan of Care Date of Evaluation: 11/22/24 Date of Surgery: Diagnosis: R knee pain Assessment: Patient is a 64 year old R handed female who presents with s/s consistent with R knee pain. 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 Patient past medical history includes sacrum and hip pain, family history of cancer. Current impairments include pain, posture, ROM, strength, activity tolerance and functional mobility. Functional limitations include decreased ability to stand, walk, transfer, drive, and negotiate stairs. Patient is motivated with good rehab potential. Skilled PT will address impairments and functional limitations in order to achieve goals. Frequency and Duration: The patient will be seen 2x/week for 5 weeks Short Term Goals: I with HEP - 2 weeks Ext full - 3 weeks ITB TTP absent - 3 weeks Nursing Home Goals: Max pain with ADLs and horse care - 2/10 - 5 weeks Hip strength 4+/5 grossly - 5 weeks Knee strength 4+/5 grossly - 5 weeks Pain free transfers and stair negotiation - 5 weeks Treatment Plan: Modalities to reduce pain, spasms and effusion. Manual therapy to restore motion and function. Therapeutic exercise to improve strength and flexibility. Neuromuscular re-education for posture and balance. Therapeutic activities to return to functional activities of daily living. Electronically signed by: Leon Brunner, PT Please sign and return to therapist. Thank you for your referral.
--- NOTE | 2025-04-08 10:32 | MHC.PT.DC ---
[facility] [place] [facility] [place] [facility] [place] [facility] [address] Lindsay Regan [address] [phone] F: [phone] F: [phone] F: [phone] F: [phone] Physical Therapy Discharge Report Diagnosis: R knee pain Date of Surgery: Date of Evaluation: 11/22/24 Date of Discharge: 02/07/25 Treatments to Date: 6 Cancellations to Date: No Shows to Date: Discharge Status: Improved Function Independent with HEP Discharge Summary: 12/19/24: issued updated HEP and reviewed. ITB TTP absent. I with HEP. pt still with some lateral and posterior tenderness. She has 2 MD appts in the next 2 weeks and will call after. 12/16/24: mostly stretching today to manage s/s. assess response and develop plan for hold vs continue ahead of MD follow ups NV. Update HEP NV. 12/12/24: pt with less s/s today. we were able to progress strength and resistance. no adverse reactions. continue to progress as tolerated. 12/09/24: pt progressing slowly. reduced TTP and good response from IASTM. continue to progress as tolerated. 12/05/24: continued with same program. no adverse reactions. still with fluid behind knee but to lesser degree. educated in use of ice. 12/02/24: pt with firmness behind knee. pt educated in consistency with bakers cyst. edu on holding HS stretching. assess response NV. Patient is a 64 year old R handed female who presents with s/s consistent with R knee pain. 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 Patient past medical history includes sacrum and hip pain, family history of cancer. Current impairments include pain, posture, ROM, strength, activity tolerance and functional mobility. Functional limitations include decreased ability to stand, walk, transfer, drive, and negotiate stairs. Patient is motivated with good rehab potential. Skilled PT will address impairments and functional limitations in order to achieve goals. Electronically signed by: Leon Brunner, PT Please sign and return to therapist. Thank you for your referral.
== END 2025-04-08 10:32 | disposition home or self-care (01) ==
LOC: HO.PTCHIC 11:00
PROVIDERS: PCP Internal Medicine
DX: M25.561 Pain in right knee (principal)
CPT/HCPCS: 97110; 97140; 97162

== ENCOUNTER 2024-12-23 10:10 | Outpatient (AMB) | payer MEDICARE, BC, SELFPAY ==
--- NOTE | 2024-12-23 10:22 | A.OFFPC_ITS ---
Vital Signs 12/23/24 10:23 Height 5 ft 7 in Weight 198 lb BMI 31.0 BP 138/68 Blood Pressure Location Lt brachial Position Sitting Pulse 59 Pulse Source Pulse Oximeter Pulse Oximetry (%) 98 Oxygen Delivery Method Room Air Intake Visit Reasons: PE Allergies No Known Drug Allergies Allergy (Unknown, Verified 12/23/24 10:23) none Medication List - Last Reconciled 12/23/24 by Royal Mendoza MD calcium carb,lactat-vitamin D3 200 mg-6.25 mcg (250 unit) 1 tab PO DAILY multivitamin 1 tab PO DAILY Tobacco use date assessed: 11/07/24 Fall risk assessment: No Falls in past year Last assessed Fall Risk: 12/23/24 Dental Screening Dental Screen Date: 11/07/24 [facility] Medical History (Updated 12/23/24 @ 11:21 by Royal Mendoza MD) Annual physical exam Family history of colon cancer in father Left hip pain Pain in sacrum Cervical cancer screening Fibroepithelial polyp Pre-op examination Hx of fracture of pelvis Cough SOB (shortness of breath) on exertion Obesity (BMI 30-39.9) Overweight (BMI 25.0-29.9) Right arm fracture Melanoma of lip Osteopenia Tubular adenoma of colon Peripheral vascular disease Surgical History H/O colonoscopy S/P ORIF (open reduction internal fixation) fracture History of hemorrhoidectomy Fracture of phalanx of right ring finger Ovarian tumor Right fibular fracture Family History Father FH: prostate cancer Skin cancer Colon cancer, Onset Age: 84 Atrial fibrillation Mother Social History Household Members: Significant Other Housing: House Are you a primary managed care director to a significant other at home: No Do you presently have visiting nurse or other home services: No Alcohol intake: current Alcohol intake frequency: holidays/special occasions only Comment: 1-2 x a week 2-3 drinks Patient Tobacco Use Status: Never used Tobacco Tobacco use type: Cigarette Years Smoked: second hand smoke 14 years old did smoke 3 months e-Cigarette/Vaping Use: Never Used Second Hand Smoke Exposure: No service: No Current occupational status: employed and retired 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 1. Little interest or pleasure in doing things: not at all 2. Feeling down, depressed, or hopeless: not at all 3. Trouble falling or staying asleep, or sleeping too much: not at all 4. Feeling tired or having little energy: several days 5. Poor appetite or overeating: not at all 6. Feeling bad about yourself - or that you are a failure or have let yourself or your family down: not at all 7. Trouble concentrating on things, such as reading the newspaper or watching television: not at all 8. Moving or speaking so slowly that other people could have noticed. Or the opposite - being so fidgety or restless that you have been moving around a lot more than usual: not at all 9. Thoughts that you would be better off or of hurting yourself in some way: not at all Total score: 1 Depression Screening Interpretation: Positive Depression Screening Done: Yes 80504 - PHQ-9 Billing: Yes Source: Developed by Drs. Mitchell Zapata, Tejal Moreno, Agapito Umanzor and colleagues, with an educational ailyn from [employer]. Thrive Questionnaire Date Thrive assessed: 12/16/24 I am a: Patient What is your living situation today?: I have a steady place to live Within the past 12 months, did the food you bought not last and you didn't have the money to get more?: Never true Within the past 12 months, did you worry whether your food would run out before you got money to buy more?: Never true Do you have trouble paying for medicines?: No Do you have trouble getting transportation to medical appointments?: No Do you have trouble paying your heating and electricity bill?: No Do you have trouble taking care of your child, family member or friend?: No Do you have trouble with day-to-day activities such as bathing, preparing meals, shopping, managing finances, etc.?: No Are you currently unemployed and looking for a job?: No Are you interested in more education?: No Please select the resources that you would like help with: None Currently or been in a relationship where the following occur: No concerns reported THRIVE Score: 0 AUDIT C Alcohol Use Questionnaire (AUDIT-C) 1. How often do you have a drink containing alcohol?: 2-4 times a month 2. How many drinks containing alcohol do you have on a typical day when you are drinking?: 3 or 4 3. How often do you have six or more drinks on one occasion?: Never Total Score: 3 JEFFREY-7 AMB Questionnaire JEFFREY-7 Date JEFFREY - 7 assessed: 11/07/24 Feeling nervous, anxious, or on edge: 0 = Not at all Not being able to stop or control worryin = Not at all Worrying too much about different things: 0 = Not at all Trouble relaxin = Not at all Being so restless that it is hard to sit still: 0 = Not at all Becoming easily annoyed or irritable: 0 = Not at all Feeling afraid as if something awful might happen: 0 = Not at all Total JEFFREY-7 score (0-4 normal; 5-9 mild; 10-14 moderate; 15-21 severe): 0 Source: Developed by Drs. Mitchell Zapata, Tejal Moreno, Agapito Umanzor and colleagues, with an educational ailyn from [employer]. JEFFREY-7 Assessment Billing JEFFREY-7 Assessment Tool: JEFFREY-7 Assessment 96811 Review of Systems Const Denies poor appetite and Denies weakness Eyes Denies no additional complaints ENT Reports Normal hearing present, Denies dizziness, Denies nasal congestion, Denies tinnitus and Denies sore throat Card Denies chest pain, Denies syncope, Denies rapid heart rate and Denies dyspnea Resp Denies cough and Denies dyspnea GI Denies change in stool character, Reports constipation, Denies diarrhea, Denies nausea and Denies vomiting Denies urinary frequency, Denies difficulty voiding and Denies dysuria Neuro Reports Normal hearing present, Denies confusion, Denies dizziness, Denies syncope and Denies weakness Psych Denies confusion Physical exam (Primary Care) Vital Signs: Last Vital Signs Pulse 59 12/23/24 10:23 BP 138/68 12/23/24 10:23 Pulse Ox 98 12/23/24 10:23 Oxygen Delivery Method Room Air 12/23/24 10:23 BMI result Body Mass Index 31.0 Tobacco/Smoking Status: Tobacco use Status Tobacco use date assessed 11/07/24 12/23/24 10:25 Patient Tobacco Use Status Never used Tobacco 12/23/24 10:25 Tobacco use type Cigarette 12/23/24 10:25 e-Cigarette/Vaping Use Never Used 12/23/24 10:25 PHQ-9: PHQ-9 Score PHQ-9: Total score 1 12/23/24 11:01 Depression Screening Interpretation: Positive Thrive Assessment: Date of Thrive Assessment Date Thrive assessed 12/16/24 12/23/24 10:25 Currently or been in a relationship where the following occur: No concerns reported Const General: No confusion Orientation/consciousness: No confusion HENMT Head: Yes normocephalic Ears: external ears normal and TM's normal bilaterally Face and sinus: Yes normal facial exam Mouth: moist mucous membranes Throat: Yes tonsils normal Eyes Conjunctivae: conjunctivae normal Pupils: Equal, round and reactive pupils present and Pupil accommodation reflex normal Direct Ophthalmoscopy: normal light reflex Neck Neck: No lymphadenopathy Thyroid: Thyroid normal Chest Chest palpation & inspection: normal inspection of the chest Resp Effort & Inspection: normal respiratory effort and no audible wheezes Auscultation: clear to auscultation bilaterally, no crackles, no wheezes and lung sounds not diminished Cardio Rate: regular rate Rhythm: regular rhythm Peripheral pulses: radial pulses present and dorsalis pedis present GI Palpation (GI): no masses Auscultation: normal bowel sounds and normoactive bowel sounds Rectal Exam - Female: deferred Skin General skin exam: no rashes or lesions noted Rashes: no rashes Neuro General: No confusion Cranial nerves: Yes Equal, round and reactive pupils present and Yes Normal hearing present Cognition (Neuro): normal cognition Gait exam (Neuro): Normal gait present Motor exam (neuro): 5/5 motor strength present throughout Deep tendon reflexes (DTR's): Right brachioradialis reflex intensity grade: 2+, Left brachioradialis reflex intensity grade: 2+, Right patellar reflex intensity grade: 2+ and Left patellar reflex intensity grade: 2+ Extrem General: No edema Coding Level of Care Code Est Pt Prev Care >65y(32346) Diagnoses Annual physical exam Z00.00 Elevated ferritin R79.89 Anemia D64.9 Impaired glucose tolerance R73.02 Obesity (BMI 30-39.9) E66.9 Hearing difficulty H91.90 LLQ abdominal pain R10.32 Additional Codes JEFFREY-7 Assessment Billing - JEFFREY-7 Assessment Tool: JEFFREY-7 Assessment 78332 ([id number]) PHQ-9 - 51662 - PHQ-9 Billing: Yes ([id number]) Assessment & Plan Assessment & Plan (1) Annual physical exam: Code(s): Z00.00 - Encounter for general adult medical examination without abnormal findings Category: Medical Plan: Patient is advised to eat healthy, keep well hydrated, keep active and have adequate sleep. (2) Elevated ferritin: Code(s): R79.89 - Other specified abnormal findings of blood chemistry Category: Medical Plan: Patient has seen hematology oncology and advised to stop iron rich foods as well as multivitamins with iron (3) Anemia: Code(s): D64.9 - Anemia, unspecified Category: Medical Plan: Familial and will continue on monitoring (4) Impaired glucose tolerance: Code(s): R73.02 - Impaired glucose tolerance (oral) Category: Medical Plan: Decrease the amount of carbohydrate intake, pasta, bread, rice and potatoes are all sugar and that is aside from all the sweet stuff, remember that fruits are good but they are Sweet also. (5) Obesity (BMI 30-39.9): Code(s): E66.9 - Obesity, unspecified Category: Medical Plan: Diet and exercise (6) Hearing difficulty: Code(s): H91.90 - Unspecified hearing loss, unspecified ear Category: Medical (7) LLQ abdominal pain: Code(s): R10.32 - Left lower quadrant pain Category: Medical Plan History of Present Illness The patient is a 64 year old obese female presenting for a routine physical examination and evaluation of recent abdominal pain. She describes central weight gain since October and has been monitored for impaired glucose tolerance. She reports right knee pain associated with osteoarthritis, confirmed by X-ray, and underwent physical therapy, which caused increased sciatic-like symptoms with pain radiating down her leg. The patient had a colonoscopy in July, after which she experienced a dull ache in the abdomen. Diverticulitis was suspected, but the exact cause remains unclear, and a previous MRI suggested an ovarian cyst that might be contributing. Her bowel habits improved with Metamucil. She also mentions nocturia but is otherwise without significant urinary symptoms. Health Maintenance - Flu vaccine received on November 07, 2024 - Needs shingles vaccine, as she only received one dose in the past - Pneumonia and tetanus vaccines are up to date - Under a diabetes monitoring plan involving diet and exercise - Advised to avoid iron-rich foods and multivitamins with iron Social History - Consumes approximately four glasses of water per day, each 16 ounces - Drinks alcohol approximately once a week, about two drinks per occasion - No tobacco or recreational drug use - Reports a family history of colon cancer in her father - Engages in exercise and physical therapy Review of Systems - General: Denies fever, night sweats. - HEENT: Reports potential mild hearing impairment. - Cardiovascular: Denies chest pain, palpitations. - Respiratory: Denies shortness of breath. - Gastrointestinal: Reports previous change in bowel habits; currently resolved. - Musculoskeletal: Reports knee instability and sciatica-like symptoms. - Genitourinary: Reports nocturia three times a night. - Neurological: Denies dizziness, fainting. Physical Exam General: Cooperative, healthy appearing, comfortable, no acute distress and well developed Orientation: Patient oriented x3 Limitations: No limitations Head: Normal to inspection Ears: Hearing may be impaired; patient advised to get tested Nose: Normal external nose present Face and sinus: Normal facial exam Eyes: Appearance normal, both eyes and all related structures Neck: Normal visual inspection and Yes full ROM Respiratory: Normal respiratory effort and able to speak in complete sentences. Clear to auscultation bilaterally Cardiovascular: Regular rate and rhythm. Normal S1 and S2 GI: Normal to inspection. Soft to palpation and nontender, but patient reports dull ache possibly related to diverticulitis Skin: No rashes or lesions noted Neuro: Patient oriented x3 Extremities: Normal to inspection, but patient reports right knee pain and instability; knee brace used, and referral to ortho planned. Reports numbness and pain down the leg, possibly related to sciatic nerve issues. Results - Labs: Mild anemia and thrombocytopenia noted - Imaging: X-ray showed arthritis in the right knee; MRI suggested an ovarian cyst Plan The patient's impaired glucose tolerance will be monitored with ongoing diet and exercise strategies. An orthopedic consultation on the will further address osteoarthritis affecting the right knee. An ultrasound will evaluate potential ovarian cysts contributing to abdominal pain. Audiometry is scheduled for hearing assessment. Continued vaccination, including shingles, will be pursued, and lab evaluations will monitor blood work conditions. Lifestyle and dietary recommendations will support nocturia management and general well-being. Patient was informed and verbally consented to the use of an ambient scribe for clinic note documentation during this visit. Discussion Notes During this visit, I discussed with the patient her current conditions, including the importance of continuing a healthy diet and regular physical activity to manage her glucose metabolism and weight. We reviewed the use of a knee brace and anticipated orthopedic consultation for her knee osteoarthritis. I explained potential causes of her abdominal pain and planned an ultrasound for assessment, considering past findings of a possible ovarian cyst. Continued hearing evaluation and updates on vaccines, including the shingles vaccine, were emphasized. I informed her of the upcoming audiometry to address mild hearing concerns and advised ongoing monitoring of her blood levels due to mild anemia and thrombocytopenia. I also highlighted the significance of modifying fluid intake to manage her nocturia efficiently. We agreed on the outlined plans, and she expressed understanding and willingness to follow through with recommended interventions. Patient Instructions - Continue with diet and exercise for glucose tolerance and weight management. - Use knee brace for right knee support and attend orthopedic consultation on the . - Schedule an ultrasound to check for an ovarian cyst. - Plan for an audiometry test for hearing issues. - Consider getting the shingles vaccine. - Monitor fluid intake to reduce nocturia. - Follow up with lab work to check blood levels. - Report any increase in symptoms or new concerns promptly. Orders: Orders Complete Blood Count Auto Diff Today E66.9 - Obesity, unspecified Comprehensive Met. Panel Today E66.9 - Obesity, unspecified Hemoglobin A1c Today E66.9 - Obesity, unspecified Lipid Panel Today E66.9 - Obesity, unspecified, E78.00 - Pure hypercholesterolemia, unspecified Thyroid Stimulating Hormone Today E66.9 - Obesity, unspecified Free T4 (Free Thyroxine) Today E66.9 - Obesity, unspecified Vitamin B12 and Folate Today E66.9 - Obesity, unspecified Vitamin D 25-OH Total Today E66.9 - Obesity, unspecified US pelvic and transvaginal Today R10.32 - Left lower quadrant pain Referrals Speech and Hearing Referral H91.90 - Unspecified hearing loss, unspecified ear
[2024-12-23 10:23] VITALS: BP 138/68; PULSE 59; O2SAT 98; BMI 31.0
--- OUTSIDE RECORDS SUMMARY | 2024-12-23 11:51 | XMS_ITS ---
Author Organization [facility] [place] Address [address] [place] [address] Care Team Providers Care Locomotive Lubricating Systems Clerk Name Role Phone Royal Mendoza Primary Care Provider Michelle August Unavailable [phone] Allergies No Known Allergies REASON FOR VISIT [...] Problem Status W/U Status Risk Notes Problem [id number] Hallux valgus (acquired), left foot (M20.12) Active confirmed Vital Signs Height 5 ft 7 in in 06/29/2023 Weight 181 lb 4 oz lbs 06/29/2023 BMI 28.38 kg/m2 06/29/2023 Encounters Encounter [facility] [address] [facility]/29/[facility]23 Michelle Ramos Hallux valgus (acquired), left [...] Notes * Kenna PLASENCIAFabyB:1960 (63 yo F)Acc No.[id number]:06/29/2023 Progress Note Patient:?Fatmata Plasencia Provider:?Michelle Ramos DPM :1960???Age:63 Y???Sex:Female D ate:06/29/2023 Address:[address] [place], [place] [id number] Pcp:Royal Mendoza Subjective: * Chief Complaints: * [...] History:?Benign Jarrod or ovary 1990wrist surgery 2017skin ct collar bone area 12/2020 * Hospitalization/Major Diagno [...] ?Marital status: . 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 * Medications:?TakingVitamin C Vitamin D3 Multivitamin [...] ray : Foot, left 3V * Procedure Codes:?56986 X-RAY EXAM OF LEFT FOOT 3V, Modifiers: [...] Provider:?Michelle Ramos DPM Date:?08/2023 Generated for Sara capellan/Milagros/Laureano on:?12/23/2024 11:51 AM EDT History and Physical Notes * HPI (History [...]
--- OUTSIDE RECORDS SUMMARY | 2024-12-23 11:51 | XMS_ITS ---
Author Organization [facility] Address [address] [place] [address] Care Team Providers Care Beam Sealer Name Role Phone Royal Mendoza Primary Care Provider Michelle August [phone] REASON FOR VISIT buy pedNEXGRID sport red size 41 Encounters Encounter Location Date Provider Diagnosis [address] [address] 06/29/2023 Michelle Ramos Plan Of Treatment No Information Progress Notes * MAYA KennaFabyB:1960 (63 yo F)Acc No.[id number]:06/29/2023 Patient:?Fatmata Plasencia :1960???Age:63 Y???Sex:Female Address:[address] [place] [address], [address] * true * Date:? Generated for Printi ng/Fajohng/eTransmitting on:?12/23/2024 11:51 AM EDT
--- OUTSIDE RECORDS SUMMARY | 2024-12-23 11:51 | XMS_ITS | Clinical Summary ---
Author Organization [facility] Address [address] [id number] Care Team Providers Care Athletic Equipment Custodian Name Role Phone Unavailable Primary Care Provider [...] Personal/Family Self 1960 [address] [place] [address]
--- OUTSIDE RECORDS SUMMARY | 2024-12-23 11:52 | XMS_ITS ---
Author Organization [facility] Address [address] [place] [address] Care Team Providers Care Compensation Programs Manager Name Role Phone Royal Mendoza Primary Care Provider Michelle August [phone] REASON FOR VISIT buy coban Encounters Encounter Location Date Provider Diagnosis [facility] [address] [facility] [address] [place] [address] 06/29/2023 Michelle Ramos Plan Of Treatment No Information Progress Notes * MAYA KennaMatt:1960 (63 yo F)Acc No.[id number]:06/29/2023 Patient:?Fatmata Plasencia :1960???Age:63 Y???Sex:Female Address:[address] [place] [address], [address] * true * Date:? Generated for Judyi timi/Milagros/eTransmitting on:?12/23/2024 11:51 AM EDT
--- OUTSIDE RECORDS SUMMARY | 2024-12-23 11:52 | XMS_ITS | Data Portability ---
Author Organization [facility] Address [address] [place] [address] Assessment No assessment recorded. Plan of Treatment [...] of one or more phalanges of hand [id number] Completed 200708/07/2013 Not Available [facility] 3 02:03:56 Problem Notes None [...] SNOMED-CT Code Diagnosis ICD10 Code Diagnosis Note [id number] Physical Therapy, [address] [place] [address] 02/26/2008 09:26:57 02/26/2008 09:27:15 [id number] Physical Therapy, [address] [place] [address] 03/03/2008 12:19:31 03/03/2008 12:19:53 [id number] Physical [facility], [address] [place] [address] 03/05/2008 12:27:54 03/05/2008 12:28:18 [id number] Physical [facility], [address] [place] [address] 03/10/2008 11:51:16 03/10/2008 11:51:38 [id number] Physical Therapy, [address] [address] 03/19/2008 11:51:11 03/19/2008 11:51:32 Health Concerns Section Related Observation LastModified by Organization Detai ls LastModified Time None Recorded Concern Status LastModified by Organization Details LastModified Time None Recorded Advance Directives Directive None Recorded Payers Encounter Date Sequence Insurance Name Policy Number Policy Hassan Covered Member ID Hassan Member ID Guarantor Name 02/26/2008 1 [facility] Fatmata A Plasencia [id number] Fatmata A Plasencia 03/03/2008 1 [facility] Fatmata A Plasencia [id number] Fatmata A Plasencia 03/05/2008 1 [facility]EE PRO[employer] Fatmata A Plasencia [id number] Fatmata A Plasencia 03/10/2008 1 [facility] PRO[employer] Fatmata A Plasencia [id number] Fatmata A Plasencia 03/19/2008 1 [facility] PRO[employer] Fatmata A Plasencia [id number] Fatmata A Plasencia OBGyn Episode No OBEpisode recorded.
--- OUTSIDE RECORDS SUMMARY | 2024-12-23 11:52 | XMS_ITS | Patient Health Record ---
Author Organization [facility] [place] Address [address] [facility] [place] [address] Care Team Providers Care Theater Technician Name Role Phone Royal Mendoza Primary Care Provider Michelle August Unavailable [phone] Allergies No Known Allergies Reason For Referral [...] Problem Status W/U Status Risk Notes Problem [id number] Hallux valgus (acquired), left foot (M20.12) Active confirmed Plan Of Treatment Pending Test Test Name Order Date X ray : Foot, left 3V 06/29/2023 X ray : Foot, right 3V 11/16/2020 [id number] TENDON SHEATH/LIGAMENT 0 12/21/2020 Insurance Providers Payer Name Payer Address Payer Phone Subscriber Number Group Number Insured Name Patient Relationship to Insured Coverage Start Date Coverage End Date Medicare [employer] [address] [place] [phone] [id number] Fatmata Plasencia Self - patient is the insured [facility] [address] [place] [address] [id number] Plasencia, Fatmata Self - patient is the insured Medical (General) History Medical History History ICD Code Broken bones Keloid/Thick Scar Measles Mumps Chicken pox Joint implants/screws skin cancer Surgical History Surgery Date(Month/Year) Benign Tumor ovary 1990 wrist surgery 2017 skin ca collar bone area 12/2020
== END 2024-12-23 11:25 | disposition home or self-care (01) ==
LOC: HO.HMCH 10:10
PROVIDERS: PCP Internal Medicine; Visit Provider Internal Medicine
DX: Z00.00 Encounter for general adult medical examination without abnormal findings (principal); R79.89 Other specified abnormal findings of blood chemistry; E66.9 Obesity, unspecified; Z68.31 Body mass index [BMI] 31.0-31.9, adult; D64.9 Anemia, unspecified; R73.02 Impaired glucose tolerance (oral); R10.32 Left lower quadrant pain

== ENCOUNTER → 2024-12-23 10:10 | Outpatient (BNVA) | payer MEDICARE, BC, SELFPAY | PROVIDERS: PCP Internal Medicine; Visit Provider Internal Medicine | DX: Z00.00 Encounter for general adult medical examination without abnormal findings (principal); R79.89 Other specified abnormal findings of blood chemistry; D64.9 Anemia, unspecified; R73.02 Impaired glucose tolerance (oral); E66.9 Obesity, unspecified; H91.90 Unspecified hearing loss, unspecified ear; R10.32 Left lower quadrant pain; E78.00 Pure hypercholesterolemia, unspecified; Z87.891 Personal history of nicotine dependence; Z68.31 Body mass index [BMI] 31.0-31.9, adult | CPT/HCPCS: 96127; 99397 ==

== ENCOUNTER 2024-12-25 08:34 | Outpatient (AMB) | payer MEDICARE, BC, SELFPAY ==
--- NOTE | 2024-12-25 08:36 | A.OFFVIS_ITS ---
Vital Signs 12/25/24 08:42 Height 5 ft 7 in Weight 198 lb BMI 31.0 Intake Visit Reasons: Right knee pain and giving way Intake Note: Fatmata is a 64 year old female who presents with complaints of right knee pain and buckling. The patient states that her symptoms have gotten worse over the last 6 months in spite of continued non operative treatments. She did [place] [facility] [place] The patient states that the therapy aggravated her pain so she had to stop going. She states that her knee has ?buckled? when going down stairs several times over the last few weeks. She has failed the last 6 weeks of conservative treatment which has included Tylenol, anti-inflammatory medicines and the physical therapy. Allergies No Known Drug Allergies Allergy (Unknown, Verified 12/25/24 08:40) none [facility] Medical History (Updated 12/26/24 @ 07:54 by Shadi Mathis MD) Annual physical exam Family history of colon cancer in father Left hip pain Pain in sacrum Cervical cancer screening Fibroepithelial polyp Pre-op examination Hx of fracture of pelvis Cough SOB (shortness of breath) on exertion Obesity (BMI 30-39.9) Overweight (BMI 25.0-29.9) Right arm fracture Melanoma of lip Osteopenia Tubular adenoma of colon Peripheral vascular disease Surgical History H/O colonoscopy S/P ORIF (open reduction internal fixation) fracture History of hemorrhoidectomy Fracture of phalanx of right ring finger Ovarian tumor Right fibular fracture Family History Father FH: prostate cancer Skin cancer Colon cancer, Onset Age: 84 Atrial fibrillation Mother Social History Household Members: Significant Other Housing: House Are you a primary director career services to a significant other at home: No Do you presently have visiting nurse or other home services: No Alcohol intake: current Alcohol intake frequency: holidays/special occasions only Comment: 1-2 x a week 2-3 drinks Patient Tobacco Use Status: Never used Tobacco Tobacco use type: Cigarette Years Smoked: second hand smoke 14 years old did smoke 3 months e-Cigarette/Vaping Use: Never Used Second Hand Smoke Exposure: No service: No Current occupational status: employed and retired 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 Cognitive needs: No Hearing needs: No Vision needs: Yes (Glasses) Physical Exam Vital Signs: BMI result Body Mass Index 31.0 Const Other: Well-nourished well-developed very friendly female awake alert and oriented x3 in no acute distress Extrem Other: Bilateral lower extremity examination shows good capillary refill, no skin lesions noted, normal sensation light touch Right knee examination shows a minimal effusion, mild crepitus with range of motion, tenderness along her medial joint line, positive Edilson's test, no instability Results Reviewed Results Reviewed: X-rays of the patient's right knee show mild to moderate joint space narrowing most significant in the patellofemoral joint, no acute bony abnormalities Assessment & Plan Assessment & Plan (1) Tear of medial meniscus of right knee: Code(s): S83.241A - Other tear of medial meniscus, current injury, right knee, initial encounter Category: Medical Plan Ms. Plasencia presents with right knee pain and mechanical symptoms due to early degenerative joint disease as well as possible medial meniscus tearing. Thus, I will send the patient for an MRI of her right knee for further evaluation. I will see her back once the MRI is completed to discuss the findings and treatment options. Feel free to call me at any time should questions regarding her orthopedic management arise. Thank you very much for asking me to see this very friendly patient. I spent 21 minutes in reviewing the patient's records and imaging studies, seeing the patient and documenting in the medical record. Orders: Orders MR knee RT wo con Today S83.241A - Other tear of medial meniscus, current injury, right knee, initial encounter Coding Level of Care Code New Pt Level 3 (67881) Complex EM visit Add On G2211 Diagnoses Tear of medial meniscus of right knee S83.241A
[2024-12-25 08:42] VITALS: BMI 31.0
--- OUTSIDE RECORDS SUMMARY | 2024-12-25 08:50 | XMS_ITS ---
Author Organization [facility] [place] Address [address] [place] [address] Care Team Providers Care Dance Coach Name Role Phone Royal Mendoza Primary Care Provider Michelle August Unavailable [phone] Allergies No Known Allergies REASON FOR VISIT [...] Problem Status W/U Status Risk Notes Problem [id number] Hallux valgus (acquired), left foot (M20.12) Active confirmed Vital Signs Height 5 ft 7 in in 06/29/2023 Weight 181 lb 4 oz lbs 06/29/2023 BMI 28.38 kg/m2 06/29/2023 Encounters En[facility] [address] [facility]/29[facility]23 Michelle Ramos Hallux valgus (acquired), left [...] Notes * Kenna PLASENCIAFabyB:1960 (63 yo F)Acc No.[id number]:06/29/2023 Progress Note Patient:?Fatmata Plasencia Provider:?Michelle Ramos DPM :1960???Age:63 Y???Sex:Female D ate:06/29/2023 Address:[address] [place], [place] [id number] Pcp:Royal Mendoza Subjective: * Chief Complaints: * [...] History:?Benign Jarrod or ovary 1990wrist surgery 2017skin ks collar bone area 12/2020 * Hospitalization/Major Diagno [...] ?Marital status: . 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. * Medications:?TakingVitamin C Vitamin D3 Multivitamin [...] ray : Foot, left 3V * Procedure Codes:?93636 X-RAY EXAM OF LEFT FOOT 3V, Modifiers: [...] Ramos DPM Date:?08/2023 Generated for Sara capellan/Milagros/Laureano on:?12/25/2024 08:50 AM EDT History and Physical Notes * [...]
--- OUTSIDE RECORDS SUMMARY | 2024-12-25 08:50 | XMS_ITS | Clinical Summary ---
Author Organization [facility] Address [address] [id number] Care Team Providers Care Job Honer Name Role Phone Unavailable Primary Care Provider [...] Personal/Family Self 1960 [address] [place] [address]
--- OUTSIDE RECORDS SUMMARY | 2024-12-25 08:50 | XMS_ITS ---
Author Organization [facility] Address [address] [place] [address] Care Team Providers Care Anesthesiology Fellow Name Role Phone Royal Mendoza Primary Care Provider Michelle August [phone] REASON FOR VISIT buy Conergy sport red size 41 Encounters Encounter Location Date Provider Diagnosis [address] [address] 06/29/2023 Michelle Ramos Plan Of Treatment No Information Progress Notes * MAYA KennaFabyB:1960 (63 yo F)Acc No.[id number]:06/29/2023 Patient:?Fatmata Plasencia :1960???Age:63 Y???Sex:Female Address:[address] [place] [address], [address] * true * Date:? Generated for Printi ng/Fajohng/eTransmitting on:?12/25/2024 08:50 AM EDT
--- OUTSIDE RECORDS SUMMARY | 2024-12-25 08:51 | XMS_ITS ---
Author Organization [facility] Address [address] [place] [address] Care Team Providers Care Bible Teacher Name Role Phone Royal Mendoza Primary Care Provider Michelle August [phone] REASON FOR VISIT buy coban Encounters Encounter Location Date Provider Diagnosis [facility] [address] [facility] [address] [place] [address] 06/29/2023 Michelle Ramos Plan Of Treatment No Information Progress Notes * MAYA KennaMatt:1960 (63 yo F)Acc No.[id number]:06/29/2023 Patient:?Fatmata Plasencia :1960???Age:63 Y???Sex:Female Address:[address] [place] [address], [address] * true * Date:? Generated for Judyi timi/Milagros/eTransmitting on:?12/25/2024 08:50 AM EDT
--- OUTSIDE RECORDS SUMMARY | 2024-12-25 08:51 | XMS_ITS | Patient Health Record ---
Author Organization [facility] [place] Address [address] [facility] [place] [address] Care Team Providers Care Auto Body Repairer Name Role Phone Royal Mendoza Primary Care Provider Michelle August Unavailable [phone] Allergies No Known Allergies Reason For Referral [...] Problem Status W/U Status Risk Notes Problem [id number] Hallux valgus (acquired), left foot (M20.12) Active confirmed Plan Of Treatment Pending Test Test Name Order Date X ray : Foot, left 3V 06/29/2023 X ray : Foot, right 3V 11/16/2020 [id number] TENDON SHEATH/LIGAMENT 0 12/21/2020 Insurance Providers Payer Name Payer Address Payer Phone Subscriber Number Group Number Insured Name Patient Relationship to Insured Coverage Start Date Coverage End Date Medicare National Govt Svcs Inc [address] [place] [phone] [id number] Fatmata Plasencia Self - patient is the insured [facility] [address] [place] [address] [id number] Plasencia, Fatmata Self - patient is the insured Medical (General) History Medical History History ICD Code Broken bones Keloid/Thick Scar Measles Mumps Chicken pox Joint implants/screws skin cancer Surgical History Surgery Date(Month/Year) Benign Tumor ovary 1990 wrist surgery 2017 skin ca collar bone area 12/2020
== END 2024-12-25 09:06 | disposition home or self-care (01) ==
LOC: HO.HOS 08:35
PROVIDERS: PCP Internal Medicine; Visit Provider Orthopaedic Surgery
DX: S83.241A Other tear of medial meniscus, current injury, right knee, initial encounter (principal)
CPT/HCPCS: 99203; G2211

== ENCOUNTER → 2024-12-25 08:34 | Outpatient (BNVA) | payer MEDICARE, BC, SELFPAY | PROVIDERS: PCP Internal Medicine; Visit Provider Orthopaedic Surgery | DX: S83.241A Other tear of medial meniscus, current injury, right knee, initial encounter (principal) | CPT/HCPCS: 99202 ==

== ENCOUNTER → 2024-12-30 19:41 | Outpatient (BNV) | payer MEDICARE, BC, SELFPAY | PROVIDERS: PCP Internal Medicine; Visit Provider Radiology Diagnostic Radiology | DX: M17.11 Unilateral primary osteoarthritis, right knee (principal); M94.261 Chondromalacia, right knee | CPT/HCPCS: 73721 ==

== ENCOUNTER 2024-12-30 19:43 | Outpatient (REF) | payer MEDICARE, BC, SELFPAY ==
--- OUTSIDE RECORDS SUMMARY | 2024-12-30 19:47 | XMS_ITS | Data Portability ---
Author Organization [facility] Address [address] [place] [address] Assessment No assessment recorded. Plan of Treatment [...] of one or more phalanges of hand [id number] Completed 200708/07/2013 Not Available [facility] 3 02:03:56 Problem Notes None recorded. Medical [...] SNOMED-CT Code Diagnosis ICD10 Code Diagnosis Note [id number] Physical Therapy, [address] [place] [address] 02/26/2008 09:26:57 02/26/2008 09:27:15 [id number] Physical Therapy, [address] [place] [address] 03/03/2008 12:19:31 03/03/2008 12:19:53 [id number] Physical [facility], [address] [place] [address] 03/05/2008 12:27:54 03/05/2008 12:28:18 [id number] Physical [facility], [address] [place] [address] 03/10/2008 11:51:16 03/10/2008 11:51:38 [id number] Physical Therapy, [address] [address] 03/19/2008 11:51:11 03/19/2008 11:51:32 Health Concerns Section Related Observation LastModified by Organization Detai ls LastModified Time None Recorded Concern Status LastModified by Organization Details LastModified Time None Recorded Advance Directives Directive None Recorded Payers Encounter Date Sequence Insurance Name Policy Number Policy Hassan Covered Member ID Hassan Member ID Guarantor Name 02/26/2008 1 [facility]: [employer] Fatmata A Plasencia [id number] Fatmata A Plasencia 03/03/2008 1 [facility]: [employer] Fatmata A Plasencia [id number] Fatmata A Plasencia 03/05/2008 1 [facility]: [employer] Fatmata A Plasencia [id number] Fatmata A Plasencia 03/10/2008 1 [facility]: [employer] Fatmata A Plasencia [id number] Fatmtaa A Plasencia 03/19/2008 1 [facility]: [employer] Fatmata A Plasencia [id number] Fatmata A Plasencia OBGyn Episode No OBEpisode recorded.
--- OUTSIDE RECORDS SUMMARY | 2024-12-30 19:47 | XMS_ITS | Patient Health Record ---
Author Organization [facility] [place] Address [address] [facility] [place] [address] Care Team Providers Care Senior Market Research Analyst Name Role Phone Royal Mendoza Primary Care Provider Michelle August Unavailable [phone] Allergies No Known Allergies Reason For Referral [...] Problem Status W/U Status Risk Notes Problem [id number] Hallux valgus (acquired), left foot (M20.12) Active confirmed Plan Of Treatment Pending Test Test Name Order Date X ray : Foot, left 3V 06/29/2023 X ray : Foot, right 3V 11/16/2020 [id number] TENDON SHEATH/LIGAMENT 0 12/21/2020 Insurance Providers Payer Name Payer Address Payer Phone Subscriber Number Group Number Insured Name Patient Relationship to Insured Coverage Start Date Coverage End Date Medicare National Govt Svcs Inc [address] [place] [phone] [id number] Fatmata Plasencia Self - patient is the insured [facility] [address] [place] [address] [id number] Plasencia, Fatmata Self - patient is the insured Medical (General) History Medical History History ICD Code Broken bones Keloid/Thick Scar Measles Mumps Chicken pox Joint implants/screws skin cancer Surgical History Surgery Date(Month/Year) Benign Tumor ovary 1990 wrist surgery 2017 skin ca collar bone area 12/2020
== END 2024-12-30 19:44 | disposition home or self-care (01) ==
LOC: HO.MRI 19:43
PROVIDERS: PCP Internal Medicine; Visit Provider Orthopaedic Surgery
DX: S83.241A Other tear of medial meniscus, current injury, right knee, initial encounter (principal)
CPT/HCPCS: 73721

== ENCOUNTER 2025-01-30 15:42 | Outpatient (REF) | payer MEDICARE, BC, SELFPAY ==
--- NOTE | ~2025-01-30 | US_ITS ---
EXAMINATION: US PELVIS TRANSABDOMINAL AND TRANSVAGINAL HISTORY: R10.32 - Left lower quadrant pain COMPARISON: Comparison is made with the prior examination dated 05/03/2022. TECHNIQUE: Transabdominal and endovaginal real-time 2D ortega-scale ultrasound was performed. FINDINGS: Uterus: The uterus is normal in size, measuring 5.6 x 1.6 x 2.8 cm. Myometrium has a normal echotexture. There is a right-sided fibroid measuring 1.4 x 1.6 x 1.7 cm. Endometrium: The endometrial stripe measures 2 mm in thickness. There is trace fluid in the endometrial canal. Right ovary: The right ovary is not identified. Left ovary: The left ovary measures 2.6 x 1.8 x 1.9 cm. There is a cyst measuring 1.8 x 1.4 x 1.6 cm, without change. Pelvic fluid: none. US/US pelvic and transvaginal IMPRESSION: 1. 1.4 x 1.6 x 1.7 cm right-sided uterine fibroid. 2. 1.8 x 1.4 x 1.6 cm left ovarian cyst, without change. 3. Trace fluid in the endometrial canal. Electronically signed by: Mitchell Schmidt MD 01/31/2025 07:17 AM EDT
--- OUTSIDE RECORDS SUMMARY | 2025-01-30 16:03 | XMS_ITS | Patient Health Record ---
Author Organization [facility] [place] Address [address] [facility] [place] [address] Care Team Providers Care Receptionist Telephone Operator Name Role Phone Royal Mendoza Primary Care Provider Michelle August Unavailable [phone] Allergies No Known Allergies Reason For Referral [...] Problem Status W/U Status Risk Notes Problem [id number] Hallux valgus (acquired), left foot (M20.12) Active confirmed Plan Of Treatment Pending Test Test Name Order Date X ray : Foot, left 3V 06/29/2023 X ray : Foot, right 3V 11/16/2020 [id number] TENDON SHEATH/LIGAMENT 0 12/21/2020 Insurance Providers Payer Name Payer Address Payer Phone Subscriber Number Group Number Insured Name Patient Relationship to Insured Coverage Start Date Coverage End Date Medicare National Govt Svcs Inc [address] [place] [phone] [id number] Fatmata Plasencia Self - patient is the insured [facility] [address] [place] [address] [id number] Plasencia, Fatmata Self - patient is the insured Medical (General) History Medical History History ICD Code Broken bones Keloid/Thick Scar Measles Mumps Chicken pox Joint implants/screws skin cancer Surgical History Surgery Date(Month/Year) Benign Tumor ovary 1990 wrist surgery 2017 skin ca collar bone area 12/2020
--- OUTSIDE RECORDS SUMMARY | 2025-01-30 16:03 | XMS_ITS | Data Portability ---
Author Organization [facility] Address [address] [place] [address] Assessment No assessment recorded. Plan of Treatment [...] of one or more phalanges of hand [id number] Completed 200708/07/2013 Not Available [facility] 3 02:03:56 Problem Notes None recorded. [...] SNOMED-CT Code Diagnosis ICD10 Code Diagnosis Note [id number] Sandra Moe, OT Physical Therapy, [address] [address] 02/26/2008 09:26:57 02/26/2008 09:27:15 [id number] Sandra Moe OT Physical Therapy, [address] [address] 03/03/2008 12:19:31 03/03/2008 12:19:53 [id number] Sandra Moe OT Physical Therapy, [address] [address] 03/05/2008 12:27:54 03/05/2008 12:28:18 [id number] Sandra Moe OT Physical Therapy, [address] [address] 03/10/2008 11:51:16 03/10/2008 11:51:38 [id number] Sandra Moe OT Physical Therapy, [address] [address] 03/19/2008 11:51:11 03/19/2008 11:51:32 Health Concerns Section Related Observation LastModified by Organization Detai ls LastModified Time None Recorded Concern Status LastModified by Organization Details LastModified Time None Recorded Advance Directives Directive None Recorded Payers Encounter Date Sequence Insurance Name Policy Number Policy Hassan Covered Member ID Hassan Member ID Guarantor Name 02/26/2008 1 [facility]: [employer] Fatmata Amayaoza [id number] Fatmata Couch Plasencia 03/03/2008 1 [facility]: [employer] Fatmata A Plasencia [id number] Fatmata A Plasencia 03/05/2008 1 [facility]: [employer] Fatmata A Plasencia [id number] Fatmata A Plasencia 03/10/2008 1 [facility]: [employer] Fatmata A Plasencia [id number] Fatmata A Plasencia 03/19/2008 1 [facility]: [employer] Fatmata A Plasencia [id number] Fatmata Khoa Plasencia OBGyn Episode No OBEpisode recorded.
== END 2025-01-30 15:43 | disposition home or self-care (01) ==
LOC: HO.US 15:42
PROVIDERS: PCP Internal Medicine; Visit Provider Internal Medicine
DX: R10.32 Left lower quadrant pain (principal)
CPT/HCPCS: 76830; 76856

== ENCOUNTER → 2025-01-30 15:44 | Outpatient (BNV) | payer MEDICARE, BC, SELFPAY | PROVIDERS: PCP Internal Medicine; Visit Provider Radiology Diagnostic Radiology | DX: N83.292 Other ovarian cyst, left side (principal) | CPT/HCPCS: 76830; 76856 ==

== ENCOUNTER 2025-02-04 09:53 | Outpatient (REF) | payer MEDICARE, BC, SELFPAY ==
--- OUTSIDE RECORDS SUMMARY | 2025-02-04 10:56 | XMS_ITS | Clinical Summary ---
Author Organization [facility] Address [address] [id number] Care Team Providers Care Heel Trimmer Name Role Phone Unavailable Primary Care Provider [...] Personal/Family Self 1960 [address] [place] [address]
--- OUTSIDE RECORDS SUMMARY | 2025-02-04 10:56 | XMS_ITS | Data Portability ---
Author Organization [facility] Address [address] [place] [address] Assessment No assessment recorded. Plan of Treatment [...] of one or more phalanges of hand [id number] Completed 200708/07/2013 Not Available [facility] 3 02:03:56 Problem Notes None recorded. Medical [...] SNOMED-CT Code Diagnosis ICD10 Code Diagnosis Note [id number] Sandra Moe, OT Physical Therapy, [address] [address] 02/26/2008 09:26:57 02/26/2008 09:27:15 [id number] Sandra Moe OT Physical Therapy, [address] [address] 03/03/2008 12:19:31 03/03/2008 12:19:53 [id number] Sandra Moe OT Physical Therapy, [address] [address] 03/05/2008 12:27:54 03/05/2008 12:28:18 [id number] Sandra Moe OT Physical Therapy, [address] [address] 03/10/2008 11:51:16 03/10/2008 11:51:38 [id number] Sandra Moe OT Physical Therapy, [address] [address] 03/19/2008 11:51:11 03/19/2008 11:51:32 Health Concerns Section Related Observation LastModified by Organization Detai ls LastModified Time None Recorded Concern Status LastModified by Organization Details LastModified Time None Recorded Advance Directives Directive None Recorded Payers Encounter Date Sequence Insurance Name Policy Number Policy Hassan Covered Member ID Hassan Member ID Guarantor Name 02/26/2008 1 [facility]: [employer] EM[employer]EE PRO[employer] Fatmata Amayaoza [id number] Fatmata Couch Plasencia 03/03/2008 1 [facility]: [employer]EE [employer] Fatmata A Plasencia [id number] Fatmata A Plasencia 03/05/2008 1 [facility]: [employer]EE PRO[employer] Fatmata A Plasencia [id number] Fatmata A Plasencia 03/10/2008 1 [facility]: [employer]EE [employer] Fatmata A Plasencia [id number] Fatmata A Plasencia 03/19/2008 1 [facility]: [employer] Fatmata A Plasencia [id number] Fatmata Khoa Plasencia OBGyn Episode No OBEpisode recorded.
--- OUTSIDE RECORDS SUMMARY | 2025-02-04 10:56 | XMS_ITS | Patient Health Record ---
Author Organization [facility] [place] Address [address] [facility] [address] Care Team Providers Care Audio Visual Tech Name Role Phone Royal Mendoza Primary Care Provider Michelle August Unavailable [phone] Allergies No Known Allergies Reason For Referral [...] Problem Status W/U Status Risk Notes Problem [id number] Hallux valgus (acquired), left foot (M20.12) Active confirmed Plan Of Treatment Pending Test Test Name Order Date X ray : Foot, left 3V 06/29/2023 X ray : Foot, right 3V 11/16/2020 [id number] TENDON SHEATH/LIGAMENT 0 12/21/2020 Insurance Providers Payer Name Payer Address Payer Phone Subscriber Number Group Number Insured Name Patient Relationship to Insured Coverage Start Date Coverage End Date Medicare National Govt Svcs Inc [address] [place] [phone] [id number] Fatmata Plasencia Self - patient is the insured [facility] [address] [place] [address] [id number] Plasencia, Fatmata Self - patient is the insured Medical (General) History Medical History History ICD Code Broken bones Keloid/Thick Scar Measles Mumps Chicken pox Joint implants/screws skin cancer Surgical History Surgery Date(Month/Year) Benign Tumor ovary 1990 wrist surgery 2017 skin ca collar bone area 12/2020
== END 2025-02-04 09:54 | disposition home or self-care (01) ==
LOC: HO.SH 09:53
PROVIDERS: Visit Provider Internal Medicine
DX: Z01.118 Encounter for examination of ears and hearing with other abnormal findings (principal); H90.3 Sensorineural hearing loss, bilateral
CPT/HCPCS: 92557; 92567

== ENCOUNTER 2025-02-06 09:31 | Outpatient (AMB) | payer MEDICARE, BC, SELFPAY ==
--- NOTE | 2025-02-06 09:38 | A.OFFVIS_ITS ---
Vital Signs 02/06/25 09:40 Height 5 ft 7 in Weight 198 lb BMI 31.0 Intake Visit Reasons: OV-MRI Knee RT review Intake Note: Fatmata is a 65 year old female who presents today for review of her right knee MRI results. Patient interested on a steroid injection today. The patient recently went to [place] for vacation where she did quite a bit of walking. She used topical CBD cream which gave her fairly good relief. She has not had a cortisone injection given into her knee. She did have a cortisone injection given into her foot for treatment of plantar fasciitis in the past. She got very good relief from that injection. Allergies No Known Drug Allergies Allergy (Unknown, Verified 02/06/25 09:40) none Medication List - Last Reconciled 02/06/25 by Shadi Mathis MD calcium carb,lactat-vitamin D3 200 mg-6.25 mcg (250 unit) 1 tab PO DAILY multivitamin 1 tab PO DAILY PFSH Medical History (Updated 02/06/25 @ 10:03 by Shadi Mathis MD) Annual physical exam Family history of colon cancer in father Left hip pain Pain in sacrum Cervical cancer screening Fibroepithelial polyp Pre-op examination Hx of fracture of pelvis Cough SOB (shortness of breath) on exertion Obesity (BMI 30-39.9) Overweight (BMI 25.0-29.9) Right arm fracture Melanoma of lip Osteopenia Tubular adenoma of colon Peripheral vascular disease Surgical History H/O colonoscopy S/P ORIF (open reduction internal fixation) fracture History of hemorrhoidectomy Fracture of phalanx of right ring finger Ovarian tumor Right fibular fracture Family History Father FH: prostate cancer Skin cancer Colon cancer, Onset Age: 84 Atrial fibrillation Mother Social History Household Members: Significant Other Housing: House Are you a primary manager of care to a significant other at home: No Do you presently have visiting nurse or other home services: No Alcohol intake: current Alcohol intake frequency: holidays/special occasions only Comment: 1-2 x a week 2-3 drinks Patient Tobacco Use Status: Never used Tobacco Tobacco use type: Cigarette Years Smoked: second hand smoke 14 years old did smoke 3 months e-Cigarette/Vaping Use: Never Used Second Hand Smoke Exposure: No service: No Current occupational status: employed and retired 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 Cognitive needs: No Hearing needs: No Vision needs: Yes (Glasses) Physical Exam Vital Signs: BMI result Body Mass Index 31.0 Const Other: Well-nourished well-developed very friendly female awake alert and oriented x3 in no acute distress Extrem Other: Right knee examination shows a minimal effusion, palpable crepitus with range of motion, pain with range of motion, no instability Office Procedures AMB Joint Injection/Aspiration Joint Injection/Aspiration Primary Site: right knee Prep: site was prepped using aseptic technique Injected: 40 mg of, DepoMedrol and 1% plain lidocaine Procedure: The patient tolerated the procedure well Coding - Large joint Procedure code (CPT) selection complete Results Reviewed Results Reviewed: MRI of the patient's right knee shows moderate to severe degenerative changes within the patellofemoral joint, no evidence of meniscus or ligamentous injury Assessment & Plan Assessment & Plan (1) Osteoarthritis of right knee: Code(s): M17.11 - Unilateral primary osteoarthritis, right knee Category: Medical Plan Ms. Plasencia presents with right knee pain due to osteoarthritis most significant in her patellofemoral joint. The risks and benefits of a right knee cortisone injection were discussed at length with the patient. The patient wished to proceed. She tolerated the injection well. She will continue with her activity modifications. She will contact me prior to her follow-up appointment in 3 months should any questions or concerns arise. Feel free to call me at any time should questions regarding her orthopedic management arise. I spent 20 minutes in reviewing the patient's records and imaging studies, seeing the patient and documenting in the medical record. Orders: Orders AMB Joint Injection/Aspiration Today M17.11 - Unilateral primary osteoarthritis, right knee Coding Level of Care Code Est Pt Level 3 (44638) Complex EM visit Add On G2211 Diagnoses Osteoarthritis of right knee M17.11 CPT Codes Coding - Large joint: 22890 - Large joint ([id number])
[2025-02-06 09:40] VITALS: BMI 31.0
--- OUTSIDE RECORDS SUMMARY | 2025-02-06 09:50 | XMS_ITS | Data Portability ---
Author Organization [facility], [facility] Address [address] [place] [address] Assessment No assessment recorded. Plan of Treatment [...] of one or more phalanges of hand [id number] Completed 200708/07/2013 Not Available [facility] 3 02:03:56 Problem Notes None recorded. Medical [...] SNOMED-CT Code Diagnosis ICD10 Code Diagnosis Note [id number] Sandra Moe, OT Physical Therapy, [address] [address] 02/26/2008 09:26:57 02/26/2008 09:27:15 [id number] Sandra Moe OT Physical Therapy, [address] [address] 03/03/2008 12:19:31 03/03/2008 12:19:53 [id number] Sandra Moe OT Physical Therapy, [address] [address] 03/05/2008 12:27:54 03/05/2008 12:28:18 [id number] Sandra Moe OT Physical Therapy, [address] [address] 03/10/2008 11:51:16 03/10/2008 11:51:38 [id number] Sandra Moe OT Physical Therapy, [address] [address] 03/19/2008 11:51:11 03/19/2008 11:51:32 Health Concerns Section Related Observation LastModified by Organization Detai ls LastModified Time None Recorded Concern Status LastModified by Organization Details LastModified Time None Recorded Advance Directives Directive None Recorded Payers Encounter Date Sequence Insurance Name Policy Number Policy Hassan Covered Member ID Hassan Member ID Guarantor Name 02/26/2008 1 [facility]: [employer] Fatmata Amayaoza [id number] Fatmata Couch Plasencia 03/03/2008 1 [facility]: [employer] Fatmata A Plasencia [id number] Fatmata A Plasencia 03/05/2008 1 [facility]: [employer] Fatmata A Plasencia [id number] Fatmata A Plasencia 03/10/2008 1 [facility]: [employer] Fatmata A Plasencia [id number] Fatmata A Plasencia 03/19/2008 1 [facility]: [employer] Fatmata A Plasencia [id number] Fatmata Khoa Plasencia OBGyn Episode No OBEpisode recorded.
--- OUTSIDE RECORDS SUMMARY | 2025-02-06 09:50 | XMS_ITS | Patient Health Record ---
Author Organization [facility] [place] Address [address] [place] [address] Care Team Providers Care Registry Np Name Role Phone Royal Mendoza Primary Care Provider Michelle August Unavailable [phone] Allergies No Known Allergies Reason For Referral [...] Problem Status W/U Status Risk Notes Problem [id number] Hallux valgus (acquired), left foot (M20.12) Active confirmed Plan Of Treatment Pending Test Test Name Order Date X ray : Foot, left 3V 06/29/2023 X ray : Foot, right 3V 11/16/2020 [id number] TENDON SHEATH/LIGAMENT 0 12/21/2020 Insurance Providers Payer Name Payer Address Payer Phone Subscriber Number Group Number Insured Name Patient Relationship to Insured Coverage Start Date Coverage End Date Medicare National Govt Sv[employer] [address] [place] [phone] [id number] Fatmata Plasencia Self - patient is the insured [facility] [address] [place] [address] [id number] Plasencia, Fatmata Self - patient is the insured Medical (General) History Medical History History ICD Code Broken bones Keloid/Thick Scar Measles Mumps Chicken pox Joint implants/screws skin cancer Surgical History Surgery Date(Month/Year) Benign Tumor ovary 1990 wrist surgery 2017 skin ca collar bone area 12/2020
--- OUTSIDE RECORDS SUMMARY | 2025-02-06 09:50 | XMS_ITS | Clinical Summary ---
Author Organization [facility] Address [address] [id number] Care Team Providers Care Alligator Hunter Name Role Phone Unavailable Primary Care Provider [...] Personal/Family Self 1960 [address] [place] [address]
== END 2025-02-06 10:01 | disposition home or self-care (01) ==
LOC: HO.HOS 09:33
PROVIDERS: PCP Internal Medicine; Visit Provider Orthopaedic Surgery
DX: M17.11 Unilateral primary osteoarthritis, right knee (principal)
CPT/HCPCS: 20610; 99213

== ENCOUNTER → 2025-02-06 09:31 | Outpatient (BNVA) | payer MEDICARE, BC, SELFPAY | PROVIDERS: PCP Internal Medicine; Visit Provider Orthopaedic Surgery | DX: M17.11 Unilateral primary osteoarthritis, right knee (principal) | CPT/HCPCS: 20610; 99212; J1010; J2003 ==

== ENCOUNTER 2025-05-01 11:32 | Outpatient (AMB) | payer MEDICARE, BC, SELFPAY ==
[2025-05-01 11:53] VITALS: BMI 29.6
--- NOTE | 2025-05-01 11:53 | A.OFFVIS_ITS ---
Vital Signs 05/01/25 11:53 Height 5 ft 7 in Weight 189 lb BMI 29.6 Intake Visit Reasons: OV-Injection Follow up Last Inj-02/06/25 Intake Note: Fatmata is a 65 year old female who presents today as a follow up for her right knee cortisone injection, Last Injection was on 02/06/25. Patient states injection provided good pain relief and would like to repeat injection today. She does not take any medicines for her discomfort. Allergies No Known Drug Allergies Allergy (Unknown, Verified 05/01/25 11:54) none Medication List - Last Reconciled 05/02/25 by Shadi Mathis MD calcium carb,lactat-vitamin D3 200 mg-6.25 mcg (250 unit) 1 tab PO DAILY multivitamin 1 tab PO DAILY PFSH Medical History (Updated 05/02/25 @ 07:40 by Shadi Mathis MD) Annual physical exam Family history of colon cancer in father Left hip pain Pain in sacrum Cervical cancer screening Fibroepithelial polyp Pre-op examination Hx of fracture of pelvis Cough SOB (shortness of breath) on exertion Obesity (BMI 30-39.9) Overweight (BMI 25.0-29.9) Right arm fracture Melanoma of lip Osteopenia Tubular adenoma of colon Peripheral vascular disease Surgical History H/O colonoscopy S/P ORIF (open reduction internal fixation) fracture History of hemorrhoidectomy Fracture of phalanx of right ring finger Ovarian tumor Right fibular fracture Family History Father FH: prostate cancer Skin cancer Colon cancer, Onset Age: 84 Atrial fibrillation Mother Social History Household Members: Significant Other Housing: House Are you a primary laboratory animal care veterinarian to a significant other at home: No Do you presently have visiting nurse or other home services: No Alcohol intake: current Alcohol intake frequency: holidays/special occasions only Comment: 1-2 x a week 2-3 drinks Patient Tobacco Use Status: Never used Tobacco Tobacco use type: Cigarette Years Smoked: second hand smoke 14 years old did smoke 3 months e-Cigarette/Vaping Use: Never Used Second Hand Smoke Exposure: No service: No Current occupational status: employed and retired 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 Cognitive needs: No Hearing needs: No Vision needs: Yes (Glasses) Physical Exam Vital Signs: BMI result Body Mass Index 29.6 Extrem Other: Right knee examination shows a minimal effusion, mild crepitus with range of motion, no instability Office Procedures AMB Joint Injection/Aspiration Joint Injection/Aspiration Primary Site: right knee Prep: site was prepped using aseptic technique Injected: 40 mg of, DepoMedrol and 1% plain lidocaine Procedure: The patient tolerated the procedure well Coding - Large joint Procedure code (CPT) selection complete Assessment & Plan Assessment & Plan (1) Arthritis of right knee: Code(s): M17.11 - Unilateral primary osteoarthritis, right knee Category: Medical Plan Ms. Plasencia presents with right knee pain due to degenerative joint disease. The risks and benefits of a right knee cortisone injection were discussed at length with the patient. The patient wished to proceed. She tolerated the injection well. She will continue with her home exercise program. She will contact me prior to her follow-up appointment in 3 months should any questions or concerns arise. Feel free to call me at any time should questions regarding her orthopedic management arise. I spent 22 minutes in reviewing the patient's records and imaging studies, s eeing the patient and documenting in the medical record. Orders: Orders AMB Joint Injection/Aspiration 05/01/25 M17.11 - Unilateral primary osteoarthritis, right knee Coding Level of Care Code Est Pt Level 3 (19997) Complex EM visit Add On G2211 Diagnoses Arthritis of right knee M17.11 CPT Codes Coding - 06479 Large joint: 62671 - Large joint ([id number])
--- OUTSIDE RECORDS SUMMARY | 2025-05-01 12:37 | XMS_ITS | Clinical Summary ---
Author Organization [facility] Address [address] [id number] Care Team Providers Care Grout Machine Operator Name Role Phone Unavailable Primary Care Provider [...] 92 03/18/2015 4:23 PM EDT Temperature 37.8 C (100.1 F) 03/18/2015 4:23 PM EDT Respiratory Rate 16 03/18/2015 4:23 PM EDT [...] 1 - PCV) 2023 Influenza Vaccine (#1) 2025 RSV Adult > 60+ Yrs or Pregn ant (1 - 1-dose 75+ series) 2033 Hepatitis B Vaccines Aged Out No long er eligible based on patient's age to complete this topic RSV Ped < 20 months Aged Out No longe r eligible based on patient's age [place] [address] Fatmata Plasencia Personal/Family Self 1960 [address] [place] [address]
--- OUTSIDE RECORDS SUMMARY | 2025-05-01 12:38 | XMS_ITS | Patient Health Record ---
Author Organization [facility] Address [address] [place] [address] Care Team Providers Care Volunteer Services Supervisor Name Role Phone Royal Mendoza Primary Care Provider Michelle August Unavailable [phone] Allergies No Known Allergies Reason For Referral No Information Medications Medication SIG (Take, Route, Frequency, Duration) Notes Start Date End Date Status Multivitamin Active Hydrocortisone Butyrate 0.1 % APPLY 1-2 ML TO EACH FOOT TWICE DAILY AFTER COMPOUND; Duration: 29 Active Zinc Not-Taking Vitamin C Active [...] Problem Status W/U Status Risk Notes Problem Acquired hallux valgus ([id number]) Hallux valgus (acquired), left foot (M20.12) Active confirmed Plan Of Treatment Pending Test Test Name Order Date X ray : Foot, left 3V 06/29/2023 X ray : Foot, right 3V 11/16/2020 [id number] TENDON SHEATH/LIGAMENT 0 12/21/2020 Insurance Providers Payer Name Payer Address Payer Phone Subscriber Number Group Number Insured Name Patient Relationship to Insured Coverage Start Date Coverage End Date Medicare National Govt Sv[employer] Inc [address] [place] [address] [id number] Fatmata Plasencia Self - patient is the insured [facility] [address] [place] [address] [id number] Fatmata Plasencia Self - patient is the insured Medical (General) History Medical History History ICD Code Broken bones Keloid/Thick Scar Measles Mumps Chicken pox Joint implants/screws skin cancer Surgical History Surgery Date(Month/Year) Benign Tumor ovary 1990 wrist surgery 2017 skin ca collar bone area 12/2020
== END 2025-05-01 12:28 | disposition home or self-care (01) ==
LOC: HO.HOS 11:33
PROVIDERS: PCP Internal Medicine; Visit Provider Orthopaedic Surgery
DX: M17.11 Unilateral primary osteoarthritis, right knee (principal)
CPT/HCPCS: 20610; 99213

== ENCOUNTER → 2025-05-01 11:32 | Outpatient (BNVA) | payer MEDICARE, BC, SELFPAY | PROVIDERS: PCP Internal Medicine; Visit Provider Orthopaedic Surgery | DX: M17.11 Unilateral primary osteoarthritis, right knee (principal) | CPT/HCPCS: 20610; 99212; J1010; J2003 ==

== ENCOUNTER 2025-05-13 10:24 | Outpatient (REF) | payer MEDICARE, BC, SELFPAY ==
--- NOTE | ~2025-05-13 | US_ITS ---
CLINICAL HISTORY: Gallbladder polyp, kidney cysts, ? Splenomegaly US abdomen complete Comparison: MA/SR - US ABDOMEN COMPLETE - 10/08/24 09:25 EST , prior ultrasound images are not available, comparison is made to the report only. Findings: The visualized pancreas is normal, pancreatic tail is obscured by bowel gas. The visualized aorta and inferior vena cava are normal caliber. The liver is borderline enlarged, right lobe length is 17.8 cm. Liver parenchyma is normal in echogenicity, on several images, there is 8 mm hypoechoic lesion in the central right hepatic lobe, for example image 45. No intrahepatic bile duct dilatation. The common duct is 3 mm in diameter. Contracted gallbladder, limiting evaluation, no obvious shadowing stone, no convincing gallbladder wall thickening allowing for underdistention, negative sonographic Fabian's sign. The main portal vein is patent with antegrade flow. The right kidney is normal, 12.1 cm in length. The left kidney is normal in size and echogenicity, 11.4 cm in length. No calculus or hydronephrosis. demonstrates avascular nonshadowing hyperechoic cortical lesion 5 mm in the interpolar region, lower pole calyceal dilatation versus parapelvic cyst 3.4 cm, additional 9 mm parapelvic cyst of the midpole. The spleen is enlarged, 13.6 cm in length. No free fluid in the abdomen. Impression: 1. Mild hepatosplenomegaly. 2. Subcentimeter hypoechoic mass of the right hepatic lobe, indeterminate, recommend liver MRI for further evaluation. 3. 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 This document has been electronically signed by: Capri Matos MD on 05/13/2025 15:43:04
--- OUTSIDE RECORDS SUMMARY | 2025-05-13 11:09 | XMS_ITS | Patient Health Record ---
Author Organization [facility] [place] Address [address] [place] [address] Care Team Providers Care Group Chief Operator Name Role Phone Royal Mendoza Primary Care Provider Michelle August Unavailable [phone] Allergies No Known Allergies Reason For Referral [...] Status Risk Notes Problem Acquired hallux valgus (95894533) Hallux valgus (acquired), left foot (M20.12) Active confirmed Plan Of Treatment Pending Test Test Name Order Date X ray : Foot, left 3V 06/29/2023 X ray : Foot, right 3V 11/16/2020 [id number] TENDON SHEATH/LIGAMENT 0 12/21/2020 Insurance Providers Payer Name Payer Address Payer Phone Subscriber Number Group Number Insured Name Patient Relationship to Insured Coverage Start Date Coverage End Date Medicare National Govt Svcs Inc [address] [place] [address] [id number] Fatmata Plasencia Self - patient is the insured [facility] [address] [place] [address] [id number] Fatmata Plasencia Self - patient is the insured Medical (General) History Medical History History ICD Code Broken bones Keloid/Thick Scar Measles Mumps Chicken pox Joint implants/screws skin cancer Surgical History Surgery Date(Month/Year) Benign Tumor ovary 1990 wrist surgery 2017 skin ca collar bone area 12/2020
--- OUTSIDE RECORDS SUMMARY | 2025-05-13 11:09 | XMS_ITS | Clinical Summary ---
Author Organization [facility] Address [address] [id number] Care Team Providers Care Water Resources Technical Officer Name Role Phone Unavailable Primary Care Provider [...] [place] [address] Fatmata Plasencia Personal/Family Self 1960 [address] [place] [address]
--- NOTE | 2025-05-16 13:02 | PM.EVENT ---
I discussed ultrasound abdomen findings with Fatmata. She has borderline hepatosplenomegaly as well as indeterminate lesion in the left lobe. MRI with and without contrast has been ordered. Referral back to GI has also been made.
== END 2025-05-13 10:25 | disposition home or self-care (01) ==
LOC: HO.HMGCX 10:24
PROVIDERS: PCP Internal Medicine; Visit Provider Internal Medicine
DX: K82.4 Cholesterolosis of gallbladder (principal); D64.9 Anemia, unspecified; K76.9 Liver disease, unspecified
CPT/HCPCS: 76700

== ENCOUNTER → 2025-05-13 10:28 | Outpatient (BNV) | payer MEDICARE, BC, SELFPAY | PROVIDERS: PCP Internal Medicine; Visit Provider Radiology Diagnostic Radiology | DX: R16.2 Hepatomegaly with splenomegaly, not elsewhere classified (principal) | CPT/HCPCS: 76700 ==

== ENCOUNTER 2025-05-20 08:37 | Outpatient (REF) | payer MEDICARE, BC, SELFPAY ==
[2025-05-20 08:57] LABS: MANUAL DIFF FLAG NO
[2025-05-20 09:15] LABS: Hematocrit 36.7 % (37.0-47.0); Hemoglobin 12.3 g/dl (12.0-16.0); Imm Gran Abs Auto 0.04 X10*3/uL (0.00-0.03); Imm Gran Pct Auto 0.6 % (0.0-0.4); Lymphocytes Absolute Auto 1.6 X10*3/uL (1.2-4.9); Mean Corpuscular HGB Conc 33.5 g/dl (31.0-35.0); Mean Corpuscular Hemoglobin 31.9 pg (27.0-33.0); Mean Corpuscular Volume 95.1 fL (80.0-98.0); NRBC Abs Auto 0.000 X10*3/uL (0.0-0.012); NRBC Pct Auto 0.0 /100WBC (0.0-0.2); Platelet Count 141 X10*3/uL (160-400); Red Blood Count 3.86 X10*6/uL (4.20-5.50); White Blood Count 7.2 X10*3/uL (4.8-10.8)
--- OUTSIDE RECORDS SUMMARY | 2025-05-20 09:21 | XMS_ITS | Patient Health Record ---
Author Organization [facility] [place] Address [address] [place] [address] Care Team Providers Care Gold Leaf Layer Name Role Phone Royal Mendoza Primary Care Provider Michelle August Unavailable [phone] Allergies No Known Allergies Reason For Referral [...] Status Risk Notes Problem Acquired hallux valgus (39684844) Hallux valgus (acquired), left foot (M20.12) Active confirmed Plan Of Treatment Pending Test Test Name Order Date X ray : Foot, left 3V 06/29/2023 X ray : Foot, right 3V 11/16/2020 [id number] TENDON SHEATH/LIGAMENT 0 12/21/2020 Insurance Providers Payer Name Payer Address Payer Phone Subscriber Number Group Number Insured Name Patient Relationship to Insured Coverage Start Date Coverage End Date Medicare National Govt Svcs Inc [address] [place] [address] [id number] Fatmata Plasencia Self - patient is the insured [facility] [address] [place] [address] [id number] Fatmata Plasencia Self - patient is the insured Medical (General) History Medical History History ICD Code Broken bones Keloid/Thick Scar Measles Mumps Chicken pox Joint implants/screws skin cancer Surgical History Surgery Date(Month/Year) Benign Tumor ovary 1990 wrist surgery 2017 skin ca collar bone area 12/2020
--- OUTSIDE RECORDS SUMMARY | 2025-05-20 09:21 | XMS_ITS | Clinical Summary ---
Author Organization [facility] Address [address] [phone] Care Team Providers Care Manufacturing Specialist Name Role Phone Unavailable Primary Care Provider [...] [place] [address] Fatmata Plasencia Personal/Family Self 1960 [address] [place] [address]
[2025-05-20 09:55] LABS: Alanine Aminotransferase 17 U/L (0-31); Albumin Level 4.4 g/dL (3.5-5.0); Alkaline Phosphatase 72 U/L (39-117); Anion Gap 9 (12-20); Aspartate Amino Transferase 23 U/L (5-31); Blood Urea Nitrogen 18 mg/dL (9-16); Calcium 9.2 mg/dL (8.4-10.2); Carbon Dioxide 30 mmol/L (22-29); Chloride 109 mmol/L (96-108); Estimated Glomerular Filt Rate > 60; Iron 64 mcg/dL (30-160); Percent Iron Saturation 26 % (15-50); Potassium 4.7 mmol/L (3.3-5.1); Sodium 143 mmol/L (135-145); Total Iron Binding Capacity 242 mcg/dL (228-428); Total Protein 6.8 g/dL (6.5-8.0); Unsaturated Iron Binding 178 ug/dL
[2025-05-20 09:57] LABS: Ferritin 492 ng/mL (10-250)
[2025-05-20 10:07] LABS: HBS Num1 751.39 mIU/mL (0-7.99); HBc Num1 0.30 S/CO (0.00-0.79); HBsAGNum1 0.41 S/CO (0.00-0.99); Hepatitis A Antibody IgM 0.18 Index (0-0.79); Hepatitis B Surface Antigen Negative (Negative); ~HepC Num1 0.17 S/CO (0.00-0.79); ~Hepatitis A Antibody IgM Nonreactive (Nonreactive); ~Hepatitis B Surface Antibody REACTIVE (Nonreactive); ~Hepatitis C Antibody Nonreactive (Nonreactive)
== END 2025-05-20 08:38 | disposition home or self-care (01) ==
LOC: HO.LAB 08:37
PROVIDERS: PCP Internal Medicine; Visit Provider Internal Medicine
DX: D64.9 Anemia, unspecified (principal); Z11.59 Encounter for screening for other viral diseases; Z01.84 Encounter for antibody response examination; Z72.89 Other problems related to lifestyle
CPT/HCPCS: 36415; 80053; 82728; 83540; 85025; 86704; 86706; 86709; 86803; 87340

== ENCOUNTER 2025-06-10 15:09 | Outpatient (REF) | payer MEDICARE, BC, SELFPAY ==
--- NOTE | ~2025-06-10 | MR_ITS ---
EXAMINATION: MR ABDOMEN WITHOUT AND WITH CONTRAST CLINICAL INFORMATION: Hepatosplenomegaly COMPARISON: Correlated to ultrasound abdomen dated May 13, 2025. TECHNIQUE: MR abdomen was performed without and with use of 8.5 mL intravenous (Gadavist) gadolinium contrast. Postcontrast images are performed in multiphase dynamic sequences. Imaging was performed in 3 planes. No reported immediate complications. FINDINGS: Patient's motion artifact. LUNG BASES: No enhancing lesion. LIVER, GALLBLADDER, AND BILIARY TREE: Liver measures 19 cm. No enhancing mass. Main portal veins, hepatic veins and intrahepatic portion of the IVC are patent. No intrahepatic biliary ductal dilatation. Gallbladder is fluid-filled and contracted. No pericholecystic fluid collection or gallbladder wall thickening. Common bile duct measures 4 mm. PANCREAS: No focal mass. No peripancreatic fluid collection. No main pancreatic ductal dilatation. SPLEEN: 12 cm. No enhancing mass. ADRENAL GLANDS: No nodular lesions. KIDNEYS AND URETERS: Right kidney: No hydronephrosis. Normal enhancement pattern of the renal cortex and medulla. There are a few scattered, nonenhancing and fluid signal characteristic lesions throughout the parenchyma, the largest measures 11 mm with thin septations. Left kidney: No hydronephrosis. No enhancing mass. Normal enhancement of the parenchyma. There are multiple scattered, less than 10 mm fluid signal characteristic lesions in the renal cortex and corticomedullary junction. There are multiple nonenhancing fluid signal characteristic lesions in the parapelvic region. GASTROINTESTINAL TRACT: Abundant stool in the large intestine without intestinal obstruction pattern. Abundant food contents in the stomach. No ascites. ABDOMINAL WALL: Small fat-containing umbilical hernia. LYMPH NODES: No mesenteric or retroperitoneal lymphadenopathy. VASCULAR: No aneurysm or dissection, abdominal aorta. Probable hypointense T2 uterine fibroids. OSSEOUS STRUCTURES: There is an intrinsic hyperintense T1 bone marrow signal lesion in the entire vertebral body of L2 without gross enhancement or restricted diffusion. Multilevel thoracolumbar spondylosis. MR/MR abdomen wo/w con IMPRESSION: Hepatosplenomegaly. Bosniak type II and type I renal cysts, bilaterally. Gallbladder is contracted. Probable intraosseous hemangioma, L2. Electronically signed by: Jp Young MD 06/11/2025 07:42 AM EDT
--- OUTSIDE RECORDS SUMMARY | 2025-06-10 18:09 | XMS_ITS | Clinical Summary ---
Author Organization [facility] Address [address] [phone] Care Team Providers Care Netezza Architect Name Role Phone Unavailable Primary Care Provider [...] [place] [address] Fatmata Plasencia Personal/Family Self 1960 [address] [place] [address]
--- OUTSIDE RECORDS SUMMARY | 2025-06-10 18:09 | XMS_ITS | Patient Health Record ---
Author Organization [facility] [place] Address [address] [facility] [address] [place] [address] Care Team Providers Care Slabber Light Name Role Phone Royal Mendoza Primary Care Provider Michelle August Unavailable [phone] Allergies No Known Allergies Reason For Referral [...] Status Risk Notes Problem Acquired hallux valgus (31711517) Hallux valgus (acquired), left foot (M20.12) Active confirmed Plan Of Treatment Pending Test Test Name Order Date X ray : Foot, left 3V 06/29/2023 X ray : Foot, right 3V 11/16/2020 [id number] TENDON SHEATH/LIGAMENT 0 12/21/2020 Insurance Providers Payer Name Payer Address Payer Phone Subscriber Number Group Number Insured Name Patient Relationship to Insured Coverage Start Date Coverage End Date Medicare National Govt Svcs Inc [address] [place] [address] [id number] Fatmata Plasencia Self - patient is the insured [facility] [address] [place] [address] [id number] Fatmata Plasencia Self - patient is the insured Medical (General) History Medical History History ICD Code Broken bones Keloid/Thick Scar Measles Mumps Chicken pox Joint implants/screws skin cancer Surgical History Surgery Date(Month/Year) Benign Tumor ovary 1990 wrist surgery 2017 skin ca collar bone area 12/2020
== END 2025-06-10 15:10 | disposition home or self-care (01) ==
LOC: HO.MRI 15:09
PROVIDERS: PCP Internal Medicine; Visit Provider Internal Medicine
DX: K76.9 Liver disease, unspecified (principal)
CPT/HCPCS: 74183; A9585

== ENCOUNTER → 2025-06-10 15:13 | Outpatient (BNV) | payer MEDICARE, BC, SELFPAY | PROVIDERS: PCP Internal Medicine; Visit Provider Radiology Diagnostic Radiology | DX: N28.1 Cyst of kidney, acquired (principal); R16.2 Hepatomegaly with splenomegaly, not elsewhere classified | CPT/HCPCS: 74183 ==

== ENCOUNTER 2025-06-24 09:25 | Outpatient (AMB) | payer MEDICARE, BC, SELFPAY ==
[2025-06-24 09:43] VITALS: BP 124/82; PULSE 62; TEMP 36.1; O2SAT 99; BMI 29.5
--- NOTE | 2025-06-24 09:43 | MHC.PC.OV ---
Vital Signs 06/24/25 09:43 Height 5 ft 7 in Weight 188 lb 4 oz BMI 29.5 BP 124/82 Blood Pressure Location Lt brachial Position Sitting Pulse 62 Pulse Source Pulse Oximeter Temp 97.0 F Temp Source Temporal Artery Scan Pulse Oximetry (%) 99 Oxygen Delivery Method Room Air Intake Visit Reasons: IGT Allergies No Known Drug Allergies Allergy (Unknown, Verified 06/24/25 09:46) none Medication List - Last Reconciled 06/24/25 by Royal Mendoza MD calcium carb,lactat-vitamin D3 200 mg-6.25 mcg (250 unit) 1 tab PO DAILY multivitamin 1 tab PO DAILY Tobacco use date assessed: 06/24/25 Fall risk assessment: No Falls in past year Last assessed Fall Risk: 06/24/25 Dental Screening Dental Screen Date: 06/24/25 Did you have a dental visit in the last 12 months?: Yes Did you have a dental problem in the last 6 months where you did not have access to dental care?: No Was dental information given to patient?: Patient has dentist [facility] Medical History (Updated 06/24/25 @ 10:08 by Royal Mendoza MD) Annual physical exam Family history of colon cancer in father Left hip pain Pain in sacrum Cervical cancer screening Fibroepithelial polyp Pre-op examination Hx of fracture of pelvis Cough SOB (shortness of breath) on exertion Obesity (BMI 30-39.9) Overweight (BMI 25.0-29.9) Right arm fracture Melanoma of lip Osteopenia Tubular adenoma of colon Peripheral vascular disease Surgical History H/O colonoscopy S/P ORIF (open reduction internal fixation) fracture History of hemorrhoidectomy Fracture of phalanx of right ring finger Ovarian tumor Right fibular fracture Family History Father FH: prostate cancer Skin cancer Colon cancer, Onset Age: 84 Atrial fibrillation Mother Social History Household Members: Significant Other Housing: House Are you a primary personal care aide to a significant other at home: No Do you presently have visiting nurse or other home services: No Alcohol intake: current Alcohol intake frequency: holidays/special occasions only Comment: 1-2 x a week 2-3 drinks Patient Tobacco Use Status: Never used Tobacco Tobacco use type: Cigarette Years Smoked: second hand smoke 14 years old did smoke 3 months e-Cigarette/Vaping Use: Never Used Second Hand Smoke Exposure: No service: No Current occupational status: employed and retired 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 1. Little interest or pleasure in doing things: not at all 2. Feeling down, depressed, or hopeless: not at all 3. Trouble falling or staying asleep, or sleeping too much: not at all 4. Feeling tired or having little energy: several days 5. Poor appetite or overeating: not at all 6. Feeling bad about yourself - or that you are a failure or have let yourself or your family down: not at all 7. Trouble concentrating on things, such as reading the newspaper or watching television: not at all 8. Moving or speaking so slowly that other people could have noticed. Or the opposite - being so fidgety or restless that you have been moving around a lot more than usual: not at all 9. Thoughts that you would be better off or of hurting yourself in some way: not at all Total score: 1 Depression Screening Interpretation: Positive Depression Screening Done: Yes Source: Developed by Drs. Mitchell Zapata, Tejal Moreno, Agapito Umanzor and colleagues, with an educational ailyn from [employer]. Thrive Questionnaire Date Thrive assessed: 12/16/24 I am a: Patient What is your living situation today?: I have a steady place to live Within the past 12 months, did the food you bought not last and you didn't have the money to get more?: Never true Within the past 12 months, did you worry whether your food would run out before you got money to buy more?: Never true Do you have trouble paying for medicines?: No Do you have trouble getting transportation to medical appointments?: No Do you have trouble paying your heating and electricity bill?: No Do you have trouble taking care of your child, family member or friend?: No Do you have trouble with day-to-day activities such as bathing, preparing meals, shopping, managing finances, etc.?: No Are you currently unemployed and looking for a job?: No Are you interested in more education?: No Please select the resources that you would like help with: None Currently or been in a relationship where the following occur: No concerns reported THRIVE Score: 0 AUDIT C Alcohol Use Questionnaire (AUDIT-C) 1. How often do you have a drink containing alcohol?: 2-4 times a month 2. How many drinks containing alcohol do you have on a typical day when you are drinking?: 3 or 4 3. How often do you have six or more drinks on one occasion?: Never Total Score: 3 JEFFREY-7 AMB Questionnaire JEFFREY-7 Date JEFFREY - 7 assessed: 11/07/24 Feeling nervous, anxious, or on edge: 0 = Not at all Not being able to stop or control worryin = Not at all Worrying too much about different things: 0 = Not at all Trouble relaxin = Not at all Being so restless that it is hard to sit still: 0 = Not at all Becoming easily annoyed or irritable: 0 = Not at all Feeling afraid as if something awful might happen: 0 = Not at all Total JEFFREY-7 score (0-4 normal; 5-9 mild; 10-14 moderate; 15-21 severe): 0 Source: Developed by Drs. Mtichell Zapata, Tejal Moreno, Agapito Umanzor and colleagues, with an educational ailyn from [employer]. Physical exam (Primary Care) Vital Signs: Last Vital Signs Temp 97.0 F 06/24/25 09:43 Pulse 62 06/24/25 09:43 BP 124/82 06/24/25 09:43 Pulse Ox 99 06/24/25 09:43 Oxygen Delivery Method Room Air 06/24/25 09:43 BMI result Body Mass Index 29.5 Tobacco/Smoking Status: Tobacco use Status Tobacco use date assessed 06/24/25 06/24/25 09:47 Patient Tobacco Use Status Never used Tobacco 06/24/25 09:47 Tobacco use type Cigarette 06/24/25 09:47 e-Cigarette/Vaping Use Never Used 06/24/25 09:47 PHQ-9: PHQ-9 Score PHQ-9: Total score 1 06/24/25 09:52 Depression Screening Interpretation: Positive Thrive Assessment: Date of Thrive Assessment Date Thrive assessed 12/16/24 06/24/25 09:47 Currently or been in a relationship where the following occur: No concerns reported Const General: alert; No acute distress Eyes Conjunctivae: conjunctivae normal Resp Auscultation: clear to auscultation bilaterally Cardio Rate: regular rate Rhythm: regular rhythm GI Inspection: Yes normal to inspection Extrem General: Yes normal to inspection and No edema Office Procedures Flu Questionnaire Does the patient have a severe egg allergy?: No Does the patient have severe life threatening allergies?: No Does the patient have a fever or illness today?: No Has the patient ever had Guillain-[place] Syndrome?: No Has the patient ever had any past reaction to a flu shot?: No Immunizations Fluarix [id number] (PF) 45 mcg (15 mcg x 3)/0.5 mL IM syringe Performing Provider: Royal Mendoza MD [facility] Administered by: Eleni Byrne CMA on 06/24/25 09:52 Dose Route Admin Location Dispensed Lot Number Expiration Date [employer] 0.5 mL IM Left Deltoid 0.5 mL [id number] 03/17/26 [id number] [employer] VIS Given Date VIS Provided VIS Publication Date 06/24/25 Single Vaccine 24 Eligibility Eligibility Date Funding Source [facility] Eligible 06/24/25 Private Coding Level of Care Code Est Pt Level 4 (06671) Diagnoses Impaired glucose tolerance R73.02 Anemia D64.9 Osteoarthritis of right knee M17.11 Osteopenia M85.80 Vision changes H53.9 Assessment & Plan Assessment & Plan (1) Impaired glucose tolerance: Code(s): R73.02 - Impaired glucose tolerance (oral) Category: Medical Plan: Decrease the amount of carbohydrate intake, pasta, bread, rice and potatoes are all sugar and that is aside from all the sweet stuff, remember that fruits are good but they are Sweet also. (2) Anemia: Code(s): D64.9 - Anemia, unspecified Category: Medical Plan: Continuing to monitor patient is being followed up by hematology oncology (3) Osteoarthritis of right knee: Code(s): M17.11 - Unilateral primary osteoarthritis, right knee Category: Medical Plan: Patient has followed up with ortho and has had injections of the knee (4) Osteopenia: Code(s): M85.80 - Other specified disorders of bone density and structure, unspecified site Category: Medical (5) Vision changes: Code(s): H53.9 - Unspecified visual disturbance Category: Medical Plan History of Present Illness The patient is a 65-year-old female presenting for a follow-up visit. She has a history of tubular adenoma of the colon diagnosed in July 2024, impaired glucose tolerance, and anemia. Her last visit was in December 2024, and she is due for a mammogram this month. The patient has been under hematology oncology care for hepatosplenomegaly, with an abdominal MRI revealing a Bosniak 2 renal cyst, contracted gallbladder, and intraosseous hemangioma. An abdominal ultrasound in April showed a mass in the right hepatic lobe and an angiomyolipoma in the left kidney. She follows up with orthopedics for arthritis in the right knee, receiving injections that have provided temporary relief. A knee MRI in December 30 showed small joint effusion, severe patellofemoral compartment space narrowing, and full thickness chondromalacia. The patient also had a pelvic ultrasound revealing a 1.7 cm uterine fibroid and a 1.8 cm left ovarian cyst. She reports experiencing hot flashes, which have recently recurred after a long period of absence. Her last blood work in May showed a hemoglobin level of 12.3, platelet count of 141, and ferritin level of 492. Electrolytes, renal function, and liver numbers were reported as normal, with an LDL cholesterol of 115 noted in July 2023. The patient had a COVID-19 infection on May 30, experiencing symptoms such as fever and runny nose. She has been advised to avoid vaccines for four months following the infection. 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 - Respiratory: Reports fever and runny nose during COVID-19 infection. - Gastrointestinal: Reports bowel movements the size of a finger, improved with fiber supplementation. - Genitourinary: Denies pain during urination, reports waking up three times at night to urinate. - Musculoskeletal: Reports knee pain, improved with injections. - Neurological: Denies headaches, dizziness, or balance issues. - Endocrine: Reports hot flashes, recently recurring. Physical Exam Results - Labs: Hemoglobin 12.3, Platelet count 141, Ferritin 492, LDL cholesterol 115 - Imaging: Abdominal MRI showed hepatosplenomegaly, Bosniak 2 renal cyst, contracted gallbladder, intraosseous hemangioma - Imaging: Abdominal ultrasound showed mass in right hepatic lobe, angiomyolipoma in left kidney - Imaging: Pelvic ultrasound showed 1.7 cm uterine fibroid, 1.8 cm left ovarian cyst - Imaging: Knee MRI showed small joint effusion, severe patellofemoral compartment space narrowing, full thickness chondromalacia Plan Patient was informed and verbally consented to the use of an ambient scribe for clinic note documentation during this visit. 1. Tubular Adenoma Of The Colon The patient has a history of tubular adenoma of the colon, diagnosed in July 2024. Regular follow-up and surveillance colonoscopies are recommended to monitor for any recurrence or new adenomas. 2. Impaired Glucose Tolerance The patient has impaired glucose tolerance, which requires monitoring of blood glucose levels and lifestyle modifications to prevent progression to diabetes. 3. Anemia The patient has a history of anemia, with recent blood work showing a hemoglobin level of 12.3. Continued monitoring of hemoglobin levels and evaluation for any underlying causes are necessary. 4. Hepatosplenomegaly The patient is under hematology oncology care for hepatosplenomegaly, with imaging showing an enlarged liver and spleen. Further evaluation by gastroenterology is planned to assess the underlying cause and manage the condition. 5. Renal Cyst The patient has a Bosniak 2 renal cyst identified on MRI, which is benign and requires periodic monitoring. 6. Gallbladder Contracted The contracted gallbladder was noted on imaging, with no immediate intervention required. 7. Intraosseous Hemangioma An intraosseous hemangioma was identified on imaging, which is benign and does not require treatment at this time. 8. Angiomyolipoma Of The Left Kidney The patient has an angiomyolipoma in the left kidney, which is benign and requires monitoring for any changes in size or symptoms. 9. Arthritis Of The Right Knee The patient is receiving orthopedic care for arthritis in the right knee, with injections providing temporary relief. Continued management with physical therapy and possible future interventions may be considered based on symptom progression. 10. Thrombocytopenia The patient has thrombocytopenia, with a platelet count of 141,000, which is being monitored by hematology. 11. Uterine Fibroid A 1.7 cm uterine fibroid was identified on pelvic ultrasound, which is benign and will be monitored for any changes or symptoms. 12. Ovarian Cyst The patient has a 1.8 cm left ovarian cyst, which is benign and will be monitored for any changes or symptoms. 13. Osteopenia The patient has osteopenia, with a bone density scan due for follow-up to assess bone health and risk of osteoporosis. 14. Umbilical Hernia The patient has a small fat-containing umbilical hernia, which is being monitored for any changes or symptoms. 15. Covid-19 Infection The patient had a COVID-19 infection on May 30, with symptoms including fever and runny nose. She has been advised to avoid vaccines for four months following the infection. 16. Hot Flashes The patient reports experiencing hot flashes, which have recently recurred after a long period of absence. Further evaluation and management may be considered based on symptom severity and impact on quality of life. Discussion Notes Patient Instructions - Continue with regular follow-up appointments for monitoring of existing conditions. - Schedule and attend the upcoming mammogram and bone density scan. - Maintain a balanced diet with adequate fiber intake to improve bowel movements. - Monitor blood glucose levels and adhere to lifestyle modifications to manage impaired glucose tolerance. - Avoid vaccines for four months following the recent COVID-19 infection. Orders: Orders XR DEXA axial skeleton Today M81.0 - Age-related osteoporosis without current pathological fracture, M85.80 - Other specified disorders of bone density and structure, unspecified site Complete Blood Count Auto Diff 3 Months R73.02 - Impaired glucose tolerance (oral) Lipid Panel 3 Months E78.00 - Pure hypercholesterolemia, unspecified, R73.02 - Impaired glucose tolerance (oral) Ferritin 3 Months R73.02 - Impaired glucose tolerance (oral) Vitamin B12 and Folate 3 Months R73.02 - Impaired glucose tolerance (oral) IRON PROFILE 3 Months R73.02 - Impaired glucose tolerance (oral) Influenza [id number] Immunization Today Z23 - Encounter for immunization Comprehensive Met. Panel 3 Months R73.02 - Impaired glucose tolerance (oral) Hemoglobin A1c 3 Months R73.02 - Impaired glucose tolerance (oral) Free T4 (Free Thyroxine) 3 Months R73.02 - Impaired glucose tolerance (oral) Thyroid Stimulating Hormone 3 Months R73.02 - Impaired glucose tolerance (oral) Vitamin D 25-OH Total 3 Months R73.02 - Impaired glucose tolerance (oral) Reticulocyte Count 3 Months R73.02 - Impaired glucose tolerance (oral) Magnesium 3 Months R73.02 - Impaired glucose tolerance (oral) Referrals Ophthalmology Referral H53.9 - Unspecified visual disturbance
--- OUTSIDE RECORDS SUMMARY | 2025-06-24 10:37 | XMS_ITS | Clinical Summary ---
Author Organization [facility] Address [address] [id number] Care Team Providers Care Field Service Supervisor Name Role Phone Unavailable Primary Care Provider [...] [place] [address] Fatmata Plasencia Personal/Family Self 1960 [address] [place] [address]
--- OUTSIDE RECORDS SUMMARY | 2025-06-24 10:38 | XMS_ITS | Patient Health Record ---
Author Organization [facility] [place] Address [address] [place] [address] Care Team Providers Care Frame Feeder Name Role Phone Royal Mendoza Primary Care Provider Michelle August Unavailable [phone] Allergies No Known Allergies Reason For Referral [...] Status Risk Notes Problem Acquired hallux valgus ([id number]) Hallux valgus (acquired), left foot (M20.12) Active confirmed Plan Of Treatment Pending Test Test Name Order Date X ray : Foot, left 3V 06/29/2023 X ray : Foot, right 3V 11/16/2020 [id number] TENDON SHEATH/LIGAMENT 0 12/21/2020 Insurance Providers Payer Name Payer Address Payer Phone Subscriber Number Group Number Insured Name Patient Relationship to Insured Coverage Start Date Coverage End Date Medicare [employer] [address] [place] [address] [id number] Fatmata Plasencia Self - patient is the insured [facility] [address] [place] [address] [id number] Fatmata Plasencia Self - patient is the insured Medical (General) History Medical History History ICD Code Broken bones Keloid/Thick Scar Measles Mumps Chicken pox Joint implants/screws skin cancer Surgical History Surgery Date(Month/Year) Benign Tumor ovary 1990 wrist surgery 2017 skin ca collar bone area 12/2020
== END 2025-06-24 10:15 | disposition home or self-care (01) ==
LOC: HO.HMCH 09:26
PROVIDERS: PCP Internal Medicine; Visit Provider Internal Medicine
DX: R73.02 Impaired glucose tolerance (oral) (principal); D64.9 Anemia, unspecified; M17.11 Unilateral primary osteoarthritis, right knee; M85.80 Other specified disorders of bone density and structure, unspecified site; H53.9 Unspecified visual disturbance; Z23 Encounter for immunization

== ENCOUNTER → 2025-06-24 09:25 | Outpatient (BNVA) | payer MEDICARE, BC, SELFPAY | PROVIDERS: PCP Internal Medicine; Visit Provider Internal Medicine | DX: M17.11 Unilateral primary osteoarthritis, right knee (principal); R73.02 Impaired glucose tolerance (oral); D64.9 Anemia, unspecified; M85.80 Other specified disorders of bone density and structure, unspecified site; H53.9 Unspecified visual disturbance; N83.202 Unspecified ovarian cyst, left side; R16.2 Hepatomegaly with splenomegaly, not elsewhere classified; N28.1 Cyst of kidney, acquired; D17.71 Benign lipomatous neoplasm of kidney; D69.6 Thrombocytopenia, unspecified; K42.9 Umbilical hernia without obstruction or gangrene; N95.1 Menopausal and female climacteric states; R23.2 Flushing; Z23 Encounter for immunization; Z86.0101 Personal history of adenomatous and serrated colon polyps; Z86.16 Personal history of COVID-19 | CPT/HCPCS: 90471; 90656; 96127; 99212 ==

== ENCOUNTER 2025-07-24 11:31 | Outpatient (AMB) | payer MEDICARE, BC, SELFPAY ==
[2025-07-24 11:45] VITALS: BP 129/61; PULSE 85; BMI 30.2
--- NOTE | 2025-07-24 11:45 | A.OFFVIS_ITS ---
Vital Signs 07/24/25 11:45 Height 5 ft 7 in Weight 193 lb BMI 30.2 BP 129/61 Blood Pressure Location Lt brachial Position Sitting Pulse 85 Intake Visit Reasons: Hepatosplenomegaly Intake Note: Fatmata presents to in office today for hepatosplenomegaly. CC: PT states that since after the colonoscopy she began having LLQ abd. Pain on and off but she has it almost daily. She describes pain as a dull ache. Per PT her stools have the thickness of her pinky finger. Oracle Applications Analyst Required: No Accompanied by: Self / Same As Patient Allergies No Known Drug Allergies Allergy (Unknown, Verified 08/05/25 09:32) none HPI HPI Hepatosplenomegaly: Details: 64-year-old female here for preprocedural meeting to discuss a screening colonoscopy. She is referred by Royal Mendoza of [facility] primary care. P.m. X Obesity History of sacral fracture Eczema Actinic keratosis Tubular adenoma Plantar fasciitis Peripheral vascular disease History of right arm fracture in childhood History of melanoma of the lip Osteopenia * SURGICAL HISTORY Hemorrhoidectomy Repair of right finger fracture Repair fibular head fracture * ALLERGIES: NKDA * [id number] LABS: Laboratory Tests 05/20/25 08:55 WBC 7.2 Hgb 12.3 Hct 36.7 L MCV 95.1 MCH 31.9 Plt Count 141 L Estimated GFR > 60 Ferritin 492 H Total Bilirubin 1.0 AST 23 ALT 17 Alkaline Phosphatase 72 2019 COLONOSCOPY-GURMEET FINDINGS: Digital rectal exam revealed no specific lesion. Video colonoscope was introduced without difficulty. It was navigated into the rectosigmoid and sigmoid. Colon was slightly floppy and redundant. Slow progress through sigmoid, descending colon. Flexures were somewhat eccentrically positioned. Scope was maneuvered through transverse, ascending colon down into the cecal cap. Appendiceal orifice was seen. Ileocecal valve was well seen. No mucosal abnormalities were appreciated. Prep was excellent. As slow withdrawal, good rotational views, diminutive polyps were noted and removed as listed 50 cm, 30 cm, and 20 cm. This was done with use of excisional biopsy forceps and submitted separately. PLAN: Current recommendations in this patient are to continue screening in a 5-year basis or if any episodes of significant rectal bleeding. GRAFT OR IMPLANTS: No grafts or implants. CONDITION: Postprocedure, stable. Debby Marcus MD MEN/MODL A. Colon, polyp at 50 cm, polypectomy: Polypoid colonic mucosa with mild surface hyperplastic changes; negative for dysplasia. B. Colon, polyp at 30 cm, polypectomy: Fragments of tubular adenoma. C. Colon, polyp at 20 cm, polypectomy: Polypoid colonic mucosa within normal limits; negative for dysplasia. TODAY'S VISIT [facility] Medical History (Updated 08/05/25 @ 09:38 by ERICK Glasgow) Right knee pain Pre-op examination Other irritable bowel syndrome COVID-19 virus infection Annual physical exam Family history of colon cancer in father Left hip pain Pain in sacrum Cervical cancer screening Fibroepithelial polyp Hx of fracture of pelvis Cough SOB (shortness of breath) on exertion Obesity (BMI 30-39.9) Overweight (BMI 25.0-29.9) Right arm fracture Melanoma of lip Osteopenia Tubular adenoma of colon Peripheral vascular disease Surgical History H/O colonoscopy S/P ORIF (open reduction internal fixation) fracture History of hemorrhoidectomy Fracture of phalanx of right ring finger Ovarian tumor Right fibular fracture Family History Father FH: prostate cancer Skin cancer Colon cancer, Onset Age: 84 Atrial fibrillation Mother Social History Household Members: Significant Other Housing: House Are you a primary care associate to a significant other at home: No Do you presently have visiting nurse or other home services: No Alcohol intake: current Alcohol intake frequency: holidays/special occasions only Comment: 1-2 x a week 2-3 drinks Patient Tobacco Use Status: Former Tobacco user Tobacco use type: Cigarette Years Smoked: second hand smoke 14 years old did smoke 3 months e-Cigarette/Vaping Use: Never Used Second Hand Smoke Exposure: No Use of substances other than those prescribed or required for medical reasons: No Are you DNR?: No Advance Directives: No Advance Directives Information Provided: Yes Patient : No : No service: No Current occupational status: employed and retired 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 Cognitive needs: No Hearing needs: No Vision needs: Yes (Glasses) Review of Systems Const Denies fatigue, Denies fever(s), Denies night sweats, Denies poor appetite and Denies weight loss Eyes Reports requires corrective lenses ENT Reports Normal hearing present, Denies dental pain, Denies dysphagia, Denies hearing loss, Denies mouth pain, Denies odynophagia, Denies throat swelling, Denies tongue swelling and Reports other (Dentition adequate) GI Details: Denies abdominal pain, Denies melena, Denies bloating, Denies hematochezia, Denies constipation, Denies GI cramping, Denies dysphagia, Denies excessive flatus, Denies early satiety, Denies heartburn, Denies diarrhea, Denies nausea, Denies odynophagia, Denies vomiting and Denies hematemesis Skin/Breast Denies pruritus, Denies lesions, Denies rash and Denies jaundice Neuro Reports Normal hearing present and Denies Abnormal speech present Endo Denies fatigue Aller/Immun Denies throat swelling and Denies tongue swelling Physical Exam Vital Signs: Last Vital Signs Pulse 85 07/24/25 11:45 BP 129/61 07/24/25 11:45 BMI result Body Mass Index 30.2 Const General: cooperative, no acute distress, well developed and well groomed Nutritional Appearance: well nourished and obese Orientation/consciousness: oriented to person, oriented to place and oriented to time Limitations: No language barrier HEENT Head: Yes normocephalic and Yes atraumatic Eyes General: appearance normal, both eyes and all related structures Pupils: Equal, round and reactive pupils present Neck Neck: Yes normal visual inspection and Yes no lymphadenopathy Thyroid: Thyroid normal Resp Effort & Inspection: normal respiratory effort and able to speak in complete sentences Auscultation: clear to auscultation bilaterally Cardio Rate: regular rate Rhythm: regular rhythm Heart sounds: Normal, physiologic split S2 sound present Peripheral pulses: radial pulses present and posterior tibial pulses present GI Inspection: No distended, No Abdominal panniculus present and Yes obesity Palpation (GI): Soft to palpation, nontender, no guarding, not rigid and No hepatosplenomegaly present Percussion: Yes normal to percussion Auscultation: normal bowel sounds Rectal Exam - Female: deferred Back/Spine/Pelvis Sacroiliac joints: on the right tender to palpation Skin General skin exam: no rashes or lesions noted, turgor normal, skin not dry, no jaundice, No spider nevi and no striae Rashes: no rashes Nails: normal Neuro General: oriented to person, oriented to place and oriented to time Cranial nerves: Yes Equal, round and reactive pupils present and Yes Normal hearing present Speech: No Abnormal speech present Extrem General: Yes normal to inspection, No clubbing, No cyanosis and No edema Psych Thought process: Normal thought process present and not confabulating Thought content: Normal thought content present Insight: Good insight present (Psych) Judgement: Good judgement present (Psych) Assessment & Plan Assessment & Plan (1) Tubular adenoma of colon: Comment: 2023 scope= 1 TA repeat in 5 years; 2018 scope-Marcus= TA repeat in 5 years Code(s): D12.6 - Benign neoplasm of colon, unspecified Category: Medical (2) Pre-op examination: Code(s): Z01.818 - Encounter for other preprocedural examination Category: Medical (3) Elevated ferritin: Code(s): R79.89 - Other specified abnormal findings of blood chemistry Category: Medical (4) Hepatosplenomegaly: Code(s): R16.2 - Hepatomegaly with splenomegaly, not elsewhere classified Category: Medical (5) LLQ abdominal pain: Code(s): R10.32 - Left lower quadrant pain Category: Medical Plan - The patient is a 65-year-old female presenting with suspected liver and spleen enlargement. - Mild hepatosplenomegaly and multiple renal cysts consistent with polycystic kidney disease have been noted in recent imaging studies. - Low blood platelet counts and recently identified hemolytic anemia have contributed to consultations with hematology. Elevated ferritin initiated co ncern, leading to specialist evaluation. - The patient reports chronic abdominal discomfort and persistent thin bowel movements since a colonoscopy last July. - A dull abdominal pain persists post-colonoscopy, located near the ovary, and occurs 80% of the time. - Medical history includes healed sacral insufficiency fracture with current sacroiliac joint issues and historical left ovarian cysts. The patient's diet has been consistently stable, with no recent significant changes in dietary intake. She does not follow any dietary restrictions and typically does not consume alcohol frequently, drinking socially bi-weekly. No known food allergies are reported. The patient has been advised by her primary care physician to increase fruit and vegetable intake for dietary fiber, alternatives to which currently include fiber supplements. There is noted concern about weight management with recommendations provided by her primary care provider. - Musculoskeletal- Palpation of the sacroiliac joint indicates increased tenderness on the right side. - Abdominal- Increased stool softness observed, distinctively narrow diameter stools noted. - Schedule the lab tests for additional blood work. - Expect contact from our office to arrange the liver biopsy. - Monitor abdominal pain and report any significant changes or new symptoms. - Follow up with nephrology for renal cyst evaluation when scheduled. - Take dicyclomine as prescribed and note any changes in pain levels. - Increase intake of dietary fiber through fruits and vegetables as advised. Orders: Orders Mitochondrial Antibody 07/24/25. - Other specified abnormal findings of blood chemistry, R16.2 - Hepatomegaly with splenomegaly, not elsewhere classified Alpha Fetoprotein 07/24/25. - Other specified abnormal findings of blood chemistry, R16.2 - Hepatomegaly with splenomegaly, not elsewhere classified US biopsy liver 07/24/25. - Other specified abnormal findings of blood chemistry, R16.2 - Hepatomegaly with splenomegaly, not elsewhere classified CRISTINA Reflex Titer and Pattern 07/24/25. - Other specified abnormal findings of blood chemistry, R16.2 - Hepatomegaly with splenomegaly, not elsewhere classified Ferritin 07/24/25. - Other specified abnormal findings of blood chemistry, R16.2 - Hepatomegaly with splenomegaly, not elsewhere classified Liver Fibrosis Pnl 07/24/25. - Other specified abnormal findings of blood chemistry, R16.2 - Hepatomegaly with splenomegaly, not elsewhere classified Smooth Muscle Antibody 07/24/25. - Other specified abnormal findings of blood chemistry, R16.2 - Hepatomegaly with splenomegaly, not elsewhere classified Prothrombin Time INR 07/24/25. - Other specified abnormal findings of blood chemistry, R16.2 - Hepatomegaly with splenomegaly, not elsewhere classified Medications: New dicyclomine 20 mg PO QID 120 tabs 1RF 30 days R10.32 - Left lower quadrant pain Coding Level of Care Code New Pt Level 3 (71939) Diagnoses Tubular adenoma of colon D12.6 Pre-op examination Z01.818 Elevated ferritin R79.89 Hepatosplenomegaly R16.2 LLQ abdominal pain R10.32
--- OUTSIDE RECORDS SUMMARY | 2025-07-24 14:31 | XMS_ITS | Clinical Summary ---
Author Organization [facility] Address [address] [id number] Care Team Providers Care Ballast Cleaning Operator Name Role Phone Unavailable Primary Care [...] [place] [address] Fatmata Plasencia Personal/Family Self 1960 [address] [place] [address]
== END 2025-07-24 14:29 | disposition home or self-care (01) ==
LOC: HO.HGI 11:32
PROVIDERS: PCP Internal Medicine; Visit Provider Nurse Practitioner
DX: R16.2 Hepatomegaly with splenomegaly, not elsewhere classified (principal); R10.32 Left lower quadrant pain; R79.89 Other specified abnormal findings of blood chemistry
CPT/HCPCS: 99213

== ENCOUNTER → 2025-07-24 11:31 | Outpatient (BNVA) | payer MEDICARE, BC, SELFPAY | PROVIDERS: PCP Internal Medicine; Visit Provider Nurse Practitioner | DX: Z01.818 Encounter for other preprocedural examination (principal); R16.2 Hepatomegaly with splenomegaly, not elsewhere classified; R10.32 Left lower quadrant pain; R79.89 Other specified abnormal findings of blood chemistry; D12.6 Benign neoplasm of colon, unspecified | CPT/HCPCS: 99212 ==

== ENCOUNTER 2025-08-04 13:52 | Outpatient (REF) | payer MEDICARE, BC, SELFPAY | END 2025-08-04 13:53 | disposition home or self-care (01) | LOC: HO.MAMMO 13:52 | PROVIDERS: PCP Internal Medicine; Visit Provider Internal Medicine | DX: Z12.31 Encounter for screening mammogram for malignant neoplasm of breast (principal) | CPT/HCPCS: 77063; 77067 ==

== ENCOUNTER → 2025-08-04 14:15 | Outpatient (BNV) | payer MEDICARE, BC, SELFPAY | PROVIDERS: PCP Internal Medicine; Visit Provider Radiology Body Imaging | DX: Z12.31 Encounter for screening mammogram for malignant neoplasm of breast (principal) | CPT/HCPCS: 77063; 77067 ==

== ENCOUNTER 2025-08-05 09:22 | Outpatient (AMB) | payer MEDICARE, BC, SELFPAY ==
--- NOTE | 2025-08-05 09:27 | MHC.OFFVIS ---
Vital Signs 08/05/25 09:32 Height 5 ft 7 in Weight 193 lb BMI 30.2 Intake Visit Reasons: OV-Follow up from RT Knee Cortisone Injection Intake Note: Fatmata is a 65 year old female who presents with complaints of right knee pain. She did have a cortisone injection given into her right knee on 05/01/2025. She got fairly good relief from that injection. Her pain has returned. She would like to hold off on replacement surgery for as long as possible. Allergies No Known Drug Allergies Allergy (Unknown, Verified 08/05/25 09:32) none Medication List - Last Reconciled 08/05/25 by Shadi Mathis MD calcium carb,lactat-vitamin D3 200 mg-6.25 mcg (250 unit) 1 tab PO DAILY dicyclomine 20 mg PO QID 30 days [multivitamin without iron PO] PFSH Medical History (Updated 08/05/25 @ 09:38 by ERICK Glasgow) Right knee pain Pre-op examination Other irritable bowel syndrome COVID-19 virus infection Annual physical exam Family history of colon cancer in father Left hip pain Pain in sacrum Cervical cancer screening Fibroepithelial polyp Hx of fracture of pelvis Cough SOB (shortness of breath) on exertion Obesity (BMI 30-39.9) Overweight (BMI 25.0-29.9) Right arm fracture Melanoma of lip Osteopenia Tubular adenoma of colon Peripheral vascular disease Surgical History H/O colonoscopy S/P ORIF (open reduction internal fixation) fracture History of hemorrhoidectomy Fracture of phalanx of right ring finger Ovarian tumor Right fibular fracture Family History Father FH: prostate cancer Skin cancer Colon cancer, Onset Age: 84 Atrial fibrillation Mother Social History Household Members: Significant Other Housing: House Are you a primary acute care surgeon to a significant other at home: No Do you presently have visiting nurse or other home services: No Alcohol intake: current Alcohol intake frequency: holidays/special occasions only Comment: 1-2 x a week 2-3 drinks Patient Tobacco Use Status: Never used Tobacco Tobacco use type: Cigarette Years Smoked: second hand smoke 14 years old did smoke 3 months e-Cigarette/Vaping Use: Never Used Second Hand Smoke Exposure: No service: No Current occupational status: employed and retired 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 Cognitive needs: No Hearing needs: No Vision needs: Yes (Glasses) Physical Exam Vital Signs: BMI result Body Mass Index 30.2 Extrem Other: Right knee examination shows a minimal effusion, palpable crepitus with range of motion, pain with range of motion Office Procedures AMB Joint Injection/Aspiration Joint Injection/Aspiration Primary Site: Right Knee Prep: site was prepped using aseptic technique Injected: 40 mg of, DepoMedrol, with 3 mL of and 1% plain Lidocaine Procedure: The patient tolerated the procedure well Coding - Large joint Procedure code (CPT) selection complete Assessment & Plan Assessment & Plan (1) Osteoarthritis of right knee: Code(s): M17.11 - Unilateral primary osteoarthritis, right knee Category: Medical Plan Ms. Plasencia presents with right knee pain due to degenerative joint disease. The risks and benefits of a right knee cortisone injection were discussed at length with the patient. The patient wished to proceed. She tolerated the injection well. She will continue with her home exercise program. She will contact me prior to her follow-up appointment in 3 months should any questions or concerns arise. Feel free to call me at any time should questions regarding her orthopedic management arise. I spent 22 minutes in reviewing the patient's records and imaging studies, seeing the patient and documenting in the medical record. Orders: Orders AMB Joint Injection/Aspiration Today M17.11 - Unilateral primary osteoarthritis, right knee Coding Level of Care Code Est Pt Level 3 (88112) Complex EM visit Add On G2211 Diagnoses Osteoarthritis of right knee M17.11 CPT Codes Coding - 71358 Large joint: 26922 - Large joint ([id number])
[2025-08-05 09:32] VITALS: BMI 30.2
== END 2025-08-05 09:57 | disposition home or self-care (01) ==
LOC: HO.HOS 09:24
PROVIDERS: PCP Internal Medicine; Visit Provider Orthopaedic Surgery
DX: M17.11 Unilateral primary osteoarthritis, right knee (principal)
CPT/HCPCS: 20610; 99213

== ENCOUNTER 2025-08-05 10:01 | Outpatient (REF) | payer MEDICARE, BC, SELFPAY ==
[2025-08-05 10:21] LABS: MANUAL DIFF FLAG NO
[2025-08-05 10:36] LABS: Hematocrit 36.6 % (37.0-47.0); Hemoglobin 12.5 g/dl (12.0-16.0); Imm Gran Abs Auto 0.02 X10*3/uL (0.00-0.03); Imm Gran Pct Auto 0.3 % (0.0-0.4); Lymphocytes Absolute Auto 1.7 X10*3/uL (1.2-4.9); Mean Corpuscular HGB Conc 34.2 g/dl (31.0-35.0); Mean Corpuscular Hemoglobin 31.9 pg (27.0-33.0); Mean Corpuscular Volume 93.4 fL (80.0-98.0); NRBC Abs Auto 0.000 X10*3/uL (0.0-0.012); NRBC Pct Auto 0.0 /100WBC (0.0-0.2); Platelet Count 144 X10*3/uL (160-400); Red Blood Count 3.92 X10*6/uL (4.20-5.50); Reticulocytes Absolute 0.100 X10*6/uL (0.026-0.095); White Blood Count 6.8 X10*3/uL (4.8-10.8)
[2025-08-05 10:44] LABS: INTERNATIONAL NORM RATIO 0.9 (0.9-1.1); Prothrombin Time 11.4 SEC (11.2-13.5)
[2025-08-05 11:07] LABS: Alanine Aminotransferase 18 U/L (0-31); Albumin Level 4.7 g/dL (3.5-5.0); Alkaline Phosphatase 86 U/L (39-117); Anion Gap 8 (12-20); Aspartate Amino Transferase 25 U/L (5-31); Blood Urea Nitrogen 17 mg/dL (9-16); Calcium 9.6 mg/dL (8.4-10.2); Carbon Dioxide 28 mmol/L (22-29); Chloride 108 mmol/L (96-108); Cholesterol 193 mg/dL (<200); Estimated Glomerular Filt Rate > 60; HDL Cholesterol 68 mg/dL (>40); Magnesium 2.1 mg/dL (1.6-2.6); Potassium 4.0 mmol/L (3.3-5.1); Sodium 140 mmol/L (135-145); Total Protein 7.5 g/dL (6.5-8.0); Triglycerides 118 mg/dL (<150)
[2025-08-05 11:18] LABS: Free T4 (Free Thyroxine) 0.92 ng/dL (0.71-1.85)
[2025-08-05 11:34] LABS: Folate 9.3 ng/mL (> or = 4.0); Vitamin B12 300 pg/mL (200-900)
[2025-08-05 11:37] LABS: Ferritin 487 ng/mL (10-250); Thyroid Stimulating Hormone 2.69 uIU/mL (0.32-4.0)
[2025-08-07 11:23] LABS: Anti Nuclear Antibody Screen POSITIVE (NEGATIVE); Anti Nuclear Antibody Titer 1:40 titer
[2025-08-13 12:29] LABS: FIB-ALT 11 U/L (6-29); FIB-Alpha-2-Macroglobulin 171 mg/dL (106-279); FIB-Apolipoprotein A1 232 mg/dL (101-198); FIB-GGT 11 U/L (3-65); FIB-Haptoglobin 31 mg/dL (43-212); FIB-Total Bilirubin 1.1 mg/dL (0.2-1.2); Liver Fibrosis Score 0.20; Liver Fibrosis Stage F0; Nec Inflam Act Grade A0; Nec Inflam Act Score 0.03
== END 2025-08-05 10:02 | disposition home or self-care (01) ==
LOC: HO.LAB 10:01
PROVIDERS: Absent Provider Nurse Practitioner; PCP Internal Medicine; Visit Provider Internal Medicine
DX: Z13.89 Encounter for screening for other disorder (principal)
CPT/HCPCS: 36415; 80053; 80061; 81596; 82105; 82306; 82607; 82728; 82746; 83036; 83735; 84439; 84443; 85025; 85045; 85610; 86015; 86038; 86381

== ENCOUNTER 2025-08-05 10:18 | Day surgery (SDC) | payer MEDICARE, BC, SELFPAY ==
--- OUTSIDE RECORDS SUMMARY | 2025-07-28 14:45 | XMS_ITS | Clinical Summary ---
Author Organization [facility] Address [address] [id number] Care Team Providers Care Bee Keeper Name Role Phone Unavailable Primary Care Provider [...] [place] [address] Fatmata Plasencia Personal/Family Self 1960 [address] [place] [address]
[2025-08-05] VITALS (14 sets, daily range): BP systolic 125–148; BP diastolic 70–89; PULSE 59–72; RESP 12–18; TEMP 36.1–37.3; O2SAT 96–100; BMI 29.9
--- NOTE | ~2025-08-05 | US_ITS ---
Ultrasound-guided liver biopsy History: Hepatomegaly Procedure: Ultrasound-guided liver biopsy Risks and benefits and possible complications were discussed with the patient and consent form was signed. The abdomen was prepped and draped in usual sterile fashion. 1% lidocaine was used for anesthesia. A 19-gauge coaxial needle was inserted through the skin and soft tissues and into the right lobe of the liver. A total of 4, 20-gauge cores were performed. Permanent ultrasound images were archived. 2 Gelfoam torpedoes were inserted through the coaxial and administered into the biopsy tract and at the level of the capsule. The needle was then removed. The specimens were placed in formalin and sent to pathology. The patient tolerated the procedure well. The procedure was performed under moderate sedation with a dedicated nurse for monitoring of vital signs. The patient received Versed and Fentanyl. Moderate sedation time: min This procedure was performed by Yobany Reyes NP, and directly supervised by Xander Hope M.D. US/US biopsy liver Impression: Ultrasound-guided liver biopsy Electronically signed by: Xander Hope MD 08/12/2025 10:12 AM [facility] Workstation: [id number]
[2025-08-05 10:58] LABS: MANUAL DIFF FLAG NO
[2025-08-05 11:13] LABS: Hematocrit 35.4 % (37.0-47.0); Hemoglobin 12.3 g/dl (12.0-16.0); Imm Gran Abs Auto 0.03 X10*3/uL (0.00-0.03); Imm Gran Pct Auto 0.4 % (0.0-0.4); Lymphocytes Absolute Auto 1.7 X10*3/uL (1.2-4.9); Mean Corpuscular HGB Conc 34.7 g/dl (31.0-35.0); Mean Corpuscular Hemoglobin 32.1 pg (27.0-33.0); Mean Corpuscular Volume 92.4 fL (80.0-98.0); NRBC Abs Auto 0.000 X10*3/uL (0.0-0.012); NRBC Pct Auto 0.0 /100WBC (0.0-0.2); Platelet Count 146 X10*3/uL (160-400); Red Blood Count 3.83 X10*6/uL (4.20-5.50); White Blood Count 6.8 X10*3/uL (4.8-10.8)
[2025-08-05 11:15] LABS: Anion Gap 9 (12-20); Blood Urea Nitrogen 16 mg/dL (9-16); Calcium 9.7 mg/dL (8.4-10.2); Carbon Dioxide 27 mmol/L (22-29); Chloride 109 mmol/L (96-108); Creatinine Clr Calc Pharmacy 75.2; Estimated Glomerular Filt Rate > 60; Potassium 4.1 mmol/L (3.3-5.1); Sodium 141 mmol/L (135-145)
[2025-08-05 11:19] LABS: INTERNATIONAL NORM RATIO 1.0 (0.9-1.1); Prothrombin Time 12.0 SEC (11.2-13.5)
[2025-08-05] MEDS: Lidocaine HCl 1 % MPF 30 ML VIAL SUBCUT (14:21)
== END 2025-08-05 16:44 | disposition home or self-care (01) ==
PROVIDERS: Radiology Diagnostic Radiology; Radiology Vascular & Interventional Radiology; PCP Internal Medicine; Visit Provider Nurse Practitioner
DX: R16.2 Hepatomegaly with splenomegaly, not elsewhere classified (principal); M25.561 Pain in right knee; M25.552 Pain in left hip; M85.80 Other specified disorders of bone density and structure, unspecified site; Z87.81 Personal history of (healed) traumatic fracture; I73.9 Peripheral vascular disease, unspecified; E66.3 Overweight; Z68.30 Body mass index [BMI] 30.0-30.9, adult; K58.9 Irritable bowel syndrome, unspecified; Z80.0 Family history of malignant neoplasm of digestive organs; Z86.16 Personal history of COVID-19; Z85.820 Personal history of malignant melanoma of skin; Z87.891 Personal history of nicotine dependence; Z98.890 Other specified postprocedural states
CPT/HCPCS: 20610; 36415; 47000; 76942; 80048; 80053; 80061; 81596; 82105; 82306; 82607; 82728; 82746; 83036; 83735; 84439; 84443; 85025; 85045; 85610; 86015; 86038; 86039; 86381; 86850; 86900; 86901; 88307; 88313; 99152; 99153; 99212; J1010; J2003; J2250; J3010

== ENCOUNTER → 2025-08-05 12:59 | Outpatient (BNV) | payer MEDICARE, BC, SELFPAY | PROVIDERS: PCP Internal Medicine | DX: R74.01 Elevation of levels of liver transaminase levels (principal) | CPT/HCPCS: 47000; 76942 ==